=== PATIENT | female | born 1965 | race Caucasian/White ===

== ENCOUNTER → 2016-10-19 | Outpatient (CLI) | payer MEDICAID ==
[2016-10-19 13:37] LABS: BILIRUBIN,URINE NEGATIVE (NEGATIVE); KETONES,URINE NEGATIVE (NEGATIVE); LEUKOCYTE ESTERASE ,URINE 2+ (NEGATIVE); NITRITE,URINE NEGATIVE (NEGATIVE); PH,URINE 6.5 (5-9); PROTEIN,URINE 4+ (NEGATIVE); UROBILINOGEN,URINE NORMAL (NORMAL)
== END ==
LOC: HH 13:29
PROVIDERS: ATTEND Nurse Practitioner Family
DX: N39.0 Urinary tract infection, site not specified (principal)
CPT/HCPCS: 81000; 87077; 87088; 87186

== ENCOUNTER 2017-02-07 07:00 | Outpatient (RCR) | payer MEDICAID ==
[2017-02-07 15:38] LABS: BILIRUBIN,URINE NEGATIVE (NEGATIVE); CLARITY,URINE SLIGHTLY CLOUDY; COLOR,URINE YELLOW; GLUCOSE, URINE (UA) NEGATIVE (NEGATIVE); KETONES,URINE NEGATIVE (NEGATIVE); LEUKOCYTE ESTERASE ,URINE 1+ (NEGATIVE); NITRITE,URINE NEGATIVE (NEGATIVE); PH,URINE 7 (5-9); PROTEIN,URINE NEGATIVE (NEGATIVE); UROBILINOGEN,URINE NORMAL (NORMAL)
[2017-02-07 15:59] LABS: BACTERIA,URINE LARGE /HPF; SQUAMOUS EPITHELIAL CELL,UR 0-2 /HPF; WBC,URINE 25-50 /HPF
[2017-03-01] MEDS ORDERED: CETI10TA17 PO (10:52)
[2017-03-01] MEDS ORDERED: NALO25TA PO (10:52)
[2017-03-01] MEDS ORDERED: RIVA20TA PO (10:52)
[2017-03-01] MEDS ORDERED: INSU100V6 SQ (10:52)
[2017-03-01] MEDS ORDERED: FOLI1TAB24 PO (10:52)
[2017-03-01] MEDS ORDERED: GENT30OI2 TP (10:52)
[2017-03-01] MEDS ORDERED: NORT25CA PO (10:52)
[2017-03-01] MEDS ORDERED: GABA-488 PO (10:52)
[2017-03-01] MEDS ORDERED: PANT40TA3 PO (10:52)
[2017-03-01] MEDS ORDERED: TRAZ-28 PO (10:52)
[2017-03-01] MEDS ORDERED: POTA10TA36 PO (10:52)
[2017-03-01] MEDS ORDERED: DARI15TA PO (10:52)
[2017-03-01] MEDS ORDERED: FURO40TA4 PO (10:52)
[2017-03-01] MEDS ORDERED: TRIM100T PO (10:52)
[2017-03-01] MEDS ORDERED: BACL10TA PO (10:52)
[2017-03-01] MEDS ORDERED: LIDO6JEL TOP ×2 (11:05)
[2017-03-01] MEDS ORDERED: ONDA8TAB6 PO (11:05)
[2017-03-01] MEDS ORDERED: FERR325T24 PO (11:27)
[2017-03-01] MEDS ORDERED: CRAN500C5 PO (11:27)
[2017-03-01] MEDS ORDERED: HYDR-3820 PO (11:27)
[2017-03-01] MEDS ORDERED: MENT71OI TP (11:27)
[2017-03-01] MEDS ORDERED: TRAM50TA2 PO (11:27)
[2017-03-01] MEDS ORDERED: ALPR0.5T7 PO (11:27)
[2017-03-01] MEDS ORDERED: SENN-1 PO (11:27)
[2017-03-01] MEDS ORDERED: BIOT25007 PO (11:27)
[2017-03-01] MEDS ORDERED: MULT-166 PO (11:27)
[2017-03-01] MEDS ORDERED: CHOL20002 PO (11:27)
[2017-03-01] MEDS ORDERED: POLY17PO6 PO (11:27)
[2017-03-08] MEDS ORDERED: CARV3.122 PO (09:17)
[2017-03-08] MEDS ORDERED: TRAM50TA2 PO (09:33)
[2017-03-08] MEDS ORDERED: HYDR-3820 PO (09:33)
[2017-03-08] MEDS ORDERED: ALPR0.5T7 PO (09:33)
== END 2017-05-08 | disposition home or self-care (01) ==
LOC: LAB 07:00
PROVIDERS: ATTEND Family Medicine
DX: N39.0 Urinary tract infection, site not specified (principal)
CPT/HCPCS: 81000; 87077; 87088; 87186

== ENCOUNTER 2017-02-28 17:59 | Inpatient (IN) | payer MEDICAID ==
[~2017-02-28] VITALS: Ht 157.5 cm; Wt 100.9 kg
[2017-02-28] VITALS (10 sets, daily range): BP systolic 90–109; BP diastolic 57–69
--- OUTSIDE RECORDS SUMMARY | 2017-02-28 18:04 | XMS REPORT ---
Author Hector Aldridge [facility] Address [address] [place], [place] [id number] Care Team Providers Care Hospice Care Consultant Name Role Phone Hector Cano PCP Unavailable Allergies and Adverse Reactions Name Reaction Notes No known drug allergy Plan of Treatment Not available. Medications Active Name Start Date Estimated Completion Date SIG Comments Dextromethorphan 600 mg oral 1 tablet twice daily tramadol 50 mg oral tablet take 1 tablet (50 mg) by oral route every 6 hours as needed Xanax 0.5 mg oral tablet take 0.5 tablet by oral route every 4 to 6 hours as needed gabapentin 300 mg oral capsule take 1 capsule (300 mg) by oral route 3 times per day Zofran ODT 8 mg oral tablet,disintegrating take 1 tablet (8 mg) and place on top of the tongue where it will dissolve, then swallow by oral route 2 times per day Zyrtec 10 mg oral tablet take 1 tablet (10 mg) by oral route once daily Xarelto 20 mg oral tablet take 1 tablet (20 mg) by oral route once daily with the evening meal folic acid 1 mg oral tablet take 1 tablet (1 mg) by oral route once daily Cranberry Concentrate 500 mg oral capsule take 1 capsule by oral route daily Lantus 100 unit/mL subcutaneous solution inject by subcutaneous route as per insulin protocol ferrous sulfate 325 mg (65 mg iron) oral tablet take 1 tablet (325 mg) by oral route 2 times per day Miralax 17 gram/dose oral powder take 17 gram mixed with 8 oz. water, juice, soda, coffee or tea by oral route once daily Senna-S 8.6-50 mg oral tablet take 2 tablets by oral route 2 times a day Lasix 20 mg oral tablet take 2 tablets (40 mg) by oral route 2 times per day multivitamin oral tablet take 1 tablet by oral route daily hydrocodone-acetaminophen 10-325 mg oral tablet take 1 tablet by oral route every 6 to 8 hours as needed potassium chloride 20 mEq oral tablet extended release take 1 tablet ( 20 meq) by oral route once daily with food Protonix 40 mg oral tablet,delayed release (DR/EC) take 1 tablet (40 mg ) by oral route once daily trazodone 50 mg oral tablet take 1 tablet (50 mg) by oral route once daily at bedtime baclofen 10 mg oral tablet take 1 tablet (10 mg) by oral route 3 times per day Pamelor 25 mg oral capsule take 2 capsules (50 mg) by oral route once daily at bedtime Enablex 15 mg oral tablet extended release 24 hr take 1 tablet (15 mg) by oral route once daily biotin 5,000 mcg oral tablet,disintegrating dissolve 1 tablet by oral route daily Problem List Description Status Onset Multiple Sclerosis Active Chronic fatigue Active Sarcopenia Active Lymphedema Active Chronic constipation Active Depression Active IDDM (insulin dependent diabetes mellitus) Active Vital Signs Date Time BP-Sys(mm[Hg] BP-Sophie(mm[Hg]) HR(bpm) RR(rpm) Temp WT HT HC BMI BSA BMI Percentile O2 Sat(%) 01/19/2017 10:00:00 AM 104 mmHg 80 mmHg 111 bpm 16 rpm 96.5 F 178 lbs 64 in 30.55 kg/m2 1.91 m2 98 % Social History Not available. History of Procedures Not available. Results Summary Not available. History Of Immunizations Not available. History of Past Illness Name Date of Onset Comments Multiple Sclerosis Chronic fatigue Sarcopenia Lymphedema Chronic constipation Depression IDDM (insulin dependent diabetes mellitus) Pulmonary embolism DVT MRSA (methicillin resistant staph aureus) culture positive Pressure ulcer of right ankle, unstageable Jan 20 2017 3:20PM Payers Insurance Name Company Name Plan Name Plan Number Policy Number Policy Group Number Start Date [facility] [id number] N/A History of Encounters Visit Date Visit Type Provider 01/19/2017 Office visit Hector Cano MD
--- OUTSIDE RECORDS SUMMARY | 2017-02-28 18:04 | XMS REPORT | Continuity of Care Document ---
Author Author [facility] Address Unknown Phone Unavailable Allergies Medications Problems Date Dx Coded Attending Type Code Diagnosis Diagnosed By 07/03/2014 SY PADRON DO 682.9 CELLULITIS AND ABSCESS OF UNSPECIFIED SITES 07/03/2014 SY PADRON DO 692.9 CONTACT DERMATITIS AND OTHER ECZEMA UNSPECIFIED CAUSE Procedures Results Encounters ACCT No. Visit Date/Time Discharge Status Pt. Type Provider Facility Loc./Unit Complaint [id number] 07/03/2014 11:03:00 07/03/2014 23: 59:59 [facility] Outpatient SY PADRON DO [id number] 01/24/2017 17:11:53 01/24/2017 23: 59:59 [facility] Outpatient Hector Cano [id number] 01/20/2017 16:07:27 01/20/2017 23: 59:59 [facility] Outpatient Hector Cano
--- NOTE | 2017-02-28 18:16 | ED General ---
General Stated Complaint: LETHARGIC/AMS Source of Information: Patient, EMS, Old Records Exam Limitations: Physical Impairments History of Present Illness Time Seen by Provider: 18:00 Initial Comments Patient presents by EMS to the [facility] ER from [facility]. Staff there noticed this morning some time that she started acting lethargic and out of it. She has an indwelling Logan catheter and they also thought they smelled malodorous urine and suspect that she may have a UTI. EMS reports when they picked her up that her blood pressures in the 90s and they are not able to get an IV. They report that the patient told EMS that she typically has to have a PICC line or central line placed. Patient denies any pain or shortness of breath. She has a history of MS. There is a note from the [facility] to contact the [facility] nursing facility about placement after medical workup and any necessary admission. Patient does not give much meaningful history but she says she is diabetic and is on Lantus 15 units at night. She's also on Lasix and Xarelto. EMS reports she was transferred by mechanical lift. Records mention heal wounds that are being treated as well as chronic lymphedema history of drug abuse nonspecific, anticoagulant usage with a history of warfarin-induced coagulopathy and pulmonary embolism without acute cor pulmonale. She has no indwelling Logan catheter with a history of candiduria June 2015 echocardiogram showed an ejection fraction of 15-20%. Allergies and Home Medications Allergies Coded Allergies: No Known Drug Allergies (Unverified , 02/28/17) Constitutional: see HPI, No chills, No fever Respiratory: No cough, No short of breath Cardiovascular: No chest pain, No palpitations Gastrointestinal: No abdominal pain, No nausea, No vomiting Genitourinary: other (Logan catheter in place) Musculoskeletal: No back pain, No joint pain Skin: other (ulcers to both heels and buttocks) Psychiatric/Neurological: Denies Headache, Pre-Existing Deficit, Weakness Past Mkhhluf-Akhpwo-Jqcygl Hx Patient Social History Alcohol Use: Occasionally Uses Alcohol Beverage of Choice: Beer, Wine Recreational Drug Use: No Physical Exam-Suspected Sepsis Physical Exam Vital Signs Vital Sign - Last 12Hours 02/28/17 19:02 Temp 98.1 Pulse 130 Resp 18 B/P (MAP) 107/89 Pulse Ox 96 Capillary Refill : General Appearance: Mild Distress, Obese Eyes: Bilateral Eye Normal Inspection, Bilateral Eye PERRL, Bilateral Eye EOMI HEENT: PERRL/EOMI, TMs Normal, Normal ENT Inspection, Other (oral mucosa is dry dentition is very poor.) Neck: Full Range of Motion, Non Tender, Supple Respiratory: Chest Non Tender, Lungs Clear, Normal Breath Sounds Cardiovascular: Regular Rate, Rhythm, JVD (mild) Gastrointestinal: Normal Bowel Sounds, Non Tender, Soft Genital/Rectal: Other (Logan catheter in place) Back: Normal Inspection, No Vertebral Tenderness Extremity: Pedal Edema (chronic lymphedema bilateral legs with wrappings around ankles. Nonerythematous.) Neurologic/Psychiatric: Alert, Other (oriented to person and place) Skin: other (erythema on right hip and deep tunneling unstageable pressure ulcer over the sacrum. There are heel pressure ulcers and Isaias under both breasts mostly the left.) Focused Exam Evaluation Sepsis Stage: Septic Shock Possible Source: Genitouriary Lactate Level Laboratory Tests 02/28/17 18:33: Lactic Acid Level 2.63*H Time of Focused Exam: 20:21 Respiratory: Chest Non Tender, Lungs Clear, Normal Breath Sounds, No Accessory Muscle Use, No Respiratory Distress Cardiovascular: Regular Rate, Rhythm, Normal Peripheral Pulses, JVD, Other ( chronic lymphedema) Capillary Refill: Less Than 3 Seconds Peripheral Pulses: 1+ Dorsalis Pedis (R), 1+ Left Dors-Pedis (L), 2+ Radial Pulses (R), 2+ Radial Pulses (L) Skin: normal color, warm/dry, ulcerations (pressure ulcer on the sacrum, left heel and candidiasis under her bilateral breasts left more than right.), other ( erythema and edema to right hip and buttock) Lactic Acid Level Laboratory Tests Test 02/28/17 18:33 Lactic Acid Level 2.63 MMOL/L (0.50-2.00) *H Progress/Results/Core Measures Suspected Sepsis SIRS Temperature: Pulse: Respiratory Rate: Laboratory Tests 02/28/17 18:33: White Blood Count 22.5H Blood Pressure / Mean: Laboratory Tests 02/28/17 18:33: Lactic Acid Level 2.63*H Laboratory Tests 02/28/17 18:33: Creatinine 0.72, INR Comment 2.9H, Platelet Count 359, Total Bilirubin 0.8 Results/Orders Lab Results Laboratory Tests Test 02/28/17 18:33 02/28/17 18:46 Range/Units White Blood Count 22.5 H 4.3-11.0 10^3/uL Red Blood Count 3.72 L 4.35-5.85 10^6/uL Hemoglobin 9.9 L 11.5-16.0 G/DL Hematocrit 32 L 35-52 % Mean Corpuscular Volume 85 80-99 FL Mean Corpuscular Hemoglobin 27 25-34 PG Mean Corpuscular Hemoglobin Concent 31 L 32-36 G/DL Red Cell Distribution Width 14.4 10.0-14.5 % Platelet Count 359 130-400 10^3/uL Mean Platelet Volume 11.2 H 7.4-10.4 FL Neutrophils (%) (Auto) 91 H 42-75 % Lymphocytes (%) (Auto) 5 L 12-44 % Monocytes (%) (Auto) 3 0-12 % Eosinophils (%) (Auto) 0 0-10 % Basophils (%) (Auto) 0 0-10 % Neutrophils # (Auto) 20.5 H 1.8-7.8 X 10^3 Lymphocytes # (Auto) 1.2 1.0-4.0 X 10^3 Monocytes # (Auto) 0.8 0.0-1.0 X 10^3 Eosinophils # (Auto) 0.0 0.0-0.3 10^3/uL Basophils # (Auto) 0.0 0.0-0.1 10^3/uL Neutrophils % (Manual) 86 % Lymphocytes % (Manual) 6 % Monocytes % (Manual) 1 % Eosinophils % (Manual) 0 % Basophils % (Manual) 0 % Band Neutrophils 7 % Blood Morphology Comment NORMAL Prothrombin Time 30.2 H 12.2-14.7 SEC INR Comment 2.9 H 0.8-1.4 Activated Partial Thromboplast Time 58 H 24-35 SEC Sodium Level 133 L 135-145 MMOL/L Potassium Level 4.1 3.6-5.0 MMOL/L Chloride Level 92 L 98-107 MMOL/L Carbon Dioxide Level 28 21-32 MMOL/L Anion Gap 13 5-14 MMOL/L Blood Urea Nitrogen 19 H 7-18 MG/DL Creatinine 0.72 0.60-1.30 MG/DL Estimat Glomerular Filtration Rate > 60 BUN/Creatinine Ratio 26 Glucose Level 206 H 70-105 MG/DL Lactic Acid Level 2.63 *H 0.50-2.00 MMOL/L Calcium Level 9.1 8.5-10.1 MG/DL Total Bilirubin 0.8 0.1-1.0 MG/DL Aspartate Amino Transf (AST/SGOT) 11 5-34 U/L Alanine Aminotransferase (ALT/SGPT) 9 0-55 U/L Alkaline Phosphatase 118 40-136 U/L B-Type Natriuretic Peptide 737.1 H <100.0 PG/ML Total Protein 7.8 6.4-8.2 GM/DL Albumin 3.4 3.2-4.5 GM/DL Salicylates Level < 5.0 L 5.0-20.0 MG/DL Acetaminophen Level < 10 L 10-30 UG/ML Serum Alcohol < 10 <10 MG/DL Urine Color YELLOW Urine Clarity VERY CLOUDY H Urine pH 8 5-9 Urine Specific Hutchins 1.015 L 1.016-1.022 Urine Protein 2+ H NEGATIVE Urine Glucose (UA) NEGATIVE NEGATIVE Urine Ketones NEGATIVE NEGATIVE Urine Nitrite NEGATIVE NEGATIVE Urine Bilirubin 1+ H NEGATIVE Urine Urobilinogen 1 NORMAL MG/DL Urine Leukocyte Esterase 3+ H NEGATIVE Urine RBC (Auto) 4+ H NEGATIVE Urine RBC 2-5 H /HPF Urine WBC 10-25 H /HPF Urine Crystals NONE /LPF Urine Bacteria LARGE H /HPF Urine Casts NONE /LPF Urine Mucus NEGATIVE /LPF Urine Culture Indicated YES Urine Opiates Screen POSITIVE H NEGATIVE Urine Oxycodone Screen NEGATIVE NEGATIVE Urine Methadone Screen NEGATIVE NEGATIVE Urine Propoxyphene Screen NEGATIVE NEGATIVE Urine Barbiturates Screen NEGATIVE NEGATIVE Ur Tricyclic Antidepressants Screen POSITIVE H NEGATIVE Urine Phencyclidine Screen NEGATIVE NEGATIVE Urine Amphetamines Screen NEGATIVE NEGATIVE Urine Methamphetamines Screen NEGATIVE NEGATIVE Urine Benzodiazepines Screen POSITIVE H NEGATIVE Urine Cocaine Screen NEGATIVE NEGATIVE Urine Cannabinoids Screen NEGATIVE NEGATIVE My Orders Orders - KAMI TINEO Cbc With Automated Diff (02/28/17 18:20) Comprehensive Metabolic Panel (02/28/17 18:20) Lactic Acid Analyzer (02/28/17 18:20) Blood Culture (02/28/17 18:20) Sputum Culture (02/28/17 18:20) Ua Culture If Indicated (02/28/17 18:20) Protime With Inr (02/28/17 18:20) Partial Thromboplastin Time (02/28/17 18:20) Chest 1 View, Ap/Pa Only (02/28/17 18:20) O2 (02/28/17 18:20) Saline Lock/Iv-Start (02/28/17 18:20) Saline Lock/Iv-Start (02/28/17 18:20) Piperacillin Sodium/Tazobactam (Zosyn Vi (02/28/17 18:30) Vital Signs Adult Sepsis Patie Q1H (02/28/17 18:20) Remove Rings In Anticipation O (02/28/17 18:20) BNP (02/28/17 18:20) Drug Screen Stat (Urine) (02/28/17 18:20) Ns Iv 1000 Ml (Sodium Chloride 0.9%) (02/28/17 18:20) Lactated Ringers (Lr 1000 Ml Iv Solution (02/28/17 18:20) Lactated Ringers (Lr 1000 Ml Iv Solution (02/28/17 18:49) Manual Differential (02/28/17 18:33) Vancomycin Injection (Vancomycin Injecti (02/28/17 19:00) Urine Culture (02/28/17 18:46) Salicylate (02/28/17 19:20) Acetaminophen (02/28/17 19:20) Alcohol (02/28/17 19:20) Medications Given in ED Current Medications Medications Dose Ordered Sig/Humberto Route Start Time Stop Time Status Last Admin Dose Admin Lactated Ringer's 1,000 ml @ 0 mls/hr Q0M ONCE IV 02/28/17 18:20 02/28/17 18:21 DC 02/28/17 19:00 0 MLS/HR Piperacillin Sod/ Tazobactam Sod 4.5 gm/Sodium Chloride 100 ml @ 200 mls/hr ONCE ONCE IV 02/28/17 18:30 02/28/17 18:59 DC 02/28/17 18:59 200 MLS/HR Sodium Chloride 1,000 ml @ 0 mls/hr Q0M ONCE IV 02/28/17 18:20 02/28/17 18:21 DC 02/28/17 19:00 0 MLS/HR Vancomycin HCl 1000 mg/Sodium Chloride 250 ml @ 250 mls/hr ONCE ONCE IV 02/28/17 19:00 02/28/17 19:59 DC 02/28/17 19:59 250 MLS/HR Vital Signs/I&O Vital Sign - Last 12Hours 02/28/17 19:02 Temp 98.1 Pulse 130 Resp 18 B/P (MAP) 107/89 Pulse Ox 96 Capillary Refill : Progress Note #1: Time: 18:18 Progress Note Initial blood pressure 79 systolic so we'll work her up for sepsis get some fluids and try an IV access probably using an external jugular. Patient has possible sources of urine and her redness of her skin may indicate cellulitis or wound infection from pressure ulcer. Guessing her weight to be about 2:30 pounds. I'll put her at about 3 L of fluids to get started. She is already responded with a blood pressure above 100 just to reclining her and getting in some IV fluids. Progress Note #2: Time: 19:16 Progress Note Hemoglobin is 9.9 however in her records does indicate she has a history of iron deficiency anemia and she is on multivitamins. She does stop leukocytosis with lots of leukocytes in her urine and bacteria. We'll still use a broad- spectrum coverage concern for possible cellulitis versus wound infection on her sacrum as well as UTI. Progress Note #3: Time: 19:58 Progress Note Discussed the patient's case and care at length with the son Izaiah and daughter Liliane at the bedside. They are aware of her decline and spoke with her in the past and she said that if it looked futile that we should allow natural . There is no formalized DO NOT RESUSCITATE from the patient however he discussed the futility of trying to resuscitate the patient should her heart stop beating on its own. At this time however the patient's blood pressure has improved his systolic blood pressure being 114 and she has looking a little more bright and alert so we will continue our current management and transition her to the ICU. Plan is eventually to go to the [facility]. Family would also like to try and wean off a lot of the medications the patient is on because they feel that there is excessive and superfluous. Diagnostic Imaging Diagonstic Imaging: Xray Plain Films/CT/US/NM/MRI: chest Comments NAME: RIOS GARCIA [facility] REC#: [id number] PHYSICIAN: KAMI TINEO MD CC: QUEENIE SIEGEL MD; KAMI TINEO Page 1 of 1 RADIOLOGY REPORT VIA [facility]. [place], [place] CC: QUEENIE SIEGEL MD; KAMI TINEO Page 1 of 1 RADIOLOGY REPORT NAME: RIOS GARCIA [facility] REC#: [id number] PT STATUS: REG ER : 1965 PHYSICIAN: KAMI TINEO MD ADMIT DATE: 02/28/17/ER Signed Date of Exam: 02/28/17 CHEST 1 VIEW, AP/PA ONLY INDICATION: Lethargy and cough. No prior examinations are available for comparison. FINDINGS: There is cardiomegaly. There is some venous congestion. There is no pleural effusion or pneumothorax. Mediastinum is unremarkable. IMPRESSION: Cardiomegaly and mild central pulmonary venous congestion. Dictated by: Dictated on workstation # [id number] Dict: 02/28/171902 Trans: 02/28/171916 Interpreted by: QUEENIE SIEGEL MD Electronically signed by: QUEENIE SIEGEL MD 02/28/171916 Reviewed: Reviewed by Me Departure Communication (Admissions) Time/Spoke to Admitting Phy: 19:29 Communication Discussed case imaging lab findings and choice of antibiotics and fluids. He is okay with all that and will see the patient. He would like eICU consultation on arrival. We discussed the futility of resuscitative efforts should her heart stop and the patient would not be helped by any kind of CPR efforts. We discussed at length the futility of such measures and decided the patient would most likely benefit from being DO NOT RESUSCITATE and have no benefit from being coded. Time/Spoke to Consulting Phy: 19:34 Communication/Consulting Kido: Discussed case imaging findings and sacral ulcer for consultation. Impression Impression: Primary Impression: Septic shock Additional Impressions: UTI (urinary tract infection) Qualified Codes: N30.00 - Acute cystitis without hematuria Ulcer of sacral region, unstageable Cellulitis of hip, right Candidiasis of breast Disposition: ADMITTED INPATIENT Condition: Stable Admissions Decision to Admit Reason: Admit from ER (General) Decision to Admit/Date: Feb 28, 2017 Time/Decision to Admit Time: 19:37 Departure-Patient Inst. Referrals: SABINE STEVENS MD (PCP/Family) Primary Care Physician Copy Copies To 1: TIFFANIE SMALL MD, TITUS J Feb 28, 2017 18:16
[2017-02-28] MEDS ORDERED: LACTATED RINGERS 1,000 ML IV ONE ×2 (18:20→18:49)
[2017-02-28] MEDS ORDERED: NS IV 1000 ML 1,000 ML IV ONE (18:20)
[2017-02-28] MEDS ORDERED: PIPERACILLIN SODIUM/TAZOBACTAM 4.5 GM in NS (IVPB) 100 ML IV ONE (18:30)
[2017-02-28 18:45] LABS: BASOPHILS % (AUTO) 0 % (0-10); EOSINOPHILS % (AUTO) 0 % (0-10); LYMPHOCYTES # (AUTO) 1.2 X 10^3 (1.0-4.0); LYMPHOCYTES % (AUTO) 5 % (12-44); MEAN CORPUSCULAR HEMOGLOBIN 27 PG (25-34); MEAN CORPUSCULAR HGB CONC 31 G/DL (32-36); MEAN CORPUSCULAR VOLUME 85 FL (80-99); MEAN PLATELET VOLUME 11.2 FL (7.4-10.4); MONOCYTES # (AUTO) 0.8 X 10^3 (0.0-1.0); MONOCYTES % (AUTO) 3 % (0-12); NEUTROPHILS # (AUTO) 20.5 X 10^3 (1.8-7.8); NEUTROPHILS % (AUTO) 91 % (42-75); PLATELET COUNT 359 10^3/uL (130-400); RED BLOOD COUNT 3.72 10^6/uL (4.35-5.85); RED CELL DISTRIBUTION WIDTH 14.4 % (10.0-14.5); WHITE BLOOD COUNT 22.5 10^3/uL (4.3-11.0)
[2017-02-28 18:53] LABS: INR 2.9 (0.8-1.4); PROTHROMBIN TIME PATIENT 30.2 SEC (12.2-14.7)
[2017-02-28 18:54] LABS: KETONES,URINE NEGATIVE (NEGATIVE); LEUKOCYTE ESTERASE ,URINE 3+ (NEGATIVE); NITRITE,URINE NEGATIVE (NEGATIVE); PH,URINE 8 (5-9); PROTEIN,URINE 2+ (NEGATIVE); UROBILINOGEN,URINE 1 MG/DL (NORMAL)
[2017-02-28] MEDS ORDERED: VANCOMYCIN INJECTION 1,000 MG in NS (IVPB) 250 ML IV ONE (19:00)
[2017-02-28 19:03] LABS: ALANINE AMINOTRANSFERASE 9 U/L (0-55); ALBUMIN 3.4 GM/DL (3.2-4.5); ANION GAP 13 MMOL/L (5-14); ASPARTATE AMINO TRANSFERASE 11 U/L (5-34); BILIRUBIN,TOTAL 0.8 MG/DL (0.1-1.0); BLOOD UREA NITROGEN 19 MG/DL (7-18); BUN/CREATININE RATIO 26; CALCIUM 9.1 MG/DL (8.5-10.1); CARBON DIOXIDE 28 MMOL/L (21-32); CHLORIDE 92 MMOL/L (98-107); CREATININE SERUM 0.72 MG/DL (0.60-1.30); GFR ESTIMATED > 60; GLUCOSE 206 MG/DL (70-105); POTASSIUM 4.1 MMOL/L (3.6-5.0); SODIUM 133 MMOL/L (135-145); TOTAL PROTEIN 7.8 GM/DL (6.4-8.2)
[2017-02-28 19:08] LABS: BILIRUBIN,URINE 1+ (NEGATIVE)
[2017-02-28 19:15] LABS: BAND NEUTROPHILS 7 %; BASOPHILS % (MANUAL) 0 %; EOSINOPHILS % (MANUAL) 0 %; LYMPHOCYTES % (MANUAL) 6 %; NEUTROPHILS % (MANUAL) 86 %
--- NOTE | 2017-02-28 19:16 | Diagnostic Imaging Report ---
INDICATION: Lethargy and cough. No prior examinations are available for comparison. FINDINGS: There is cardiomegaly. There is some venous congestion. There is no pleural effusion or pneumothorax. Mediastinum is unremarkable. IMPRESSION: Cardiomegaly and mild central pulmonary venous congestion. Dictated by: Dictated on workstation # [id number]
[2017-02-28 19:40] LABS: ALCOHOL < 10 MG/DL (<10); SALICYLATE < 5.0 MG/DL (5.0-20.0)
[2017-02-28 19:42] LABS: ACETAMINOPHEN < 10 UG/ML (10-30)
--- OUTSIDE RECORDS SUMMARY | 2017-02-28 20:29 | XMS REPORT | Continuity of Care Document ---
Author Author [facility] Address Unknown Phone Unavailable Allergies Medications Problems Date Dx Coded Attending Type Code Diagnosis Diagnosed By 07/03/2014 SY PADRON DO 682.9 CELLULITIS AND ABSCESS OF UNSPECIFIED SITES 07/03/2014 SY PADRON DO 692.9 CONTACT DERMATITIS AND OTHER ECZEMA UNSPECIFIED CAUSE Procedures Results Encounters ACCT No. Visit Date/Time Discharge Status Pt. Type Provider Facility Loc./Unit Complaint [id number] 07/03/2014 11:03:00 07/03/2014 23: 59:59 [facility] Outpatient SY PADRON DO [id number] 01/24/2017 17:11:53 01/24/2017 23: 59:59 [facility] Outpatient Hector Cano [id number] 01/20/2017 16:07:27 01/20/2017 23: 59:59 [facility] Outpatient Hector Cano
[2017-02-28] MEDS ORDERED: IBUPROFEN 800 MG (MOTRIN) TAB PO PRN (21:30)
[2017-02-28] MEDS ORDERED: CATHETER FLUSH 10 ML SYR IV PRN (21:30)
[2017-02-28] MEDS ORDERED: ONDANSETRON 4 MG/2 ML (SDV) Z0FRAN IV PRN (21:30)
[2017-02-28] MEDS ORDERED: NOREPINEPHRINE 4 MG in D5W IV SOLUTION (EXCEL) 250 ML IV SCH (21:30)
[2017-02-28] MEDS ORDERED: LORazepam INJ 2 MG/ML (ATIVAN) VIAL IV PRN (21:30)
[2017-02-28] MEDS ORDERED: VASOPRESSIN INJECTION 20 UNIT in NS (IVPB) 50 ML IV SCH (21:30)
[2017-02-28] MEDS ORDERED: ACETAMINOPHEN 500 MG TAB (TYLENOL) PO PRN (21:30)
[2017-02-28] MEDS: NS IV 1000 ML 1,000 ML IV SCH (21:48)
[2017-02-28] MEDS: CATHETER FLUSH 10 ML SYR IV SCH (21:48)
[2017-03-01] VITALS (26 sets, daily range): BP systolic 89–107; BP diastolic 57–71
[2017-03-01] MEDS ORDERED: PIPERACILLIN/TAZOBACTAM 4.5 GM/NS100 ML IVPB IV SCH ×2 (00:30)
[2017-03-01] MEDS: NS IV 1000 ML 1,000 ML IV SCH ×4 (04:19→23:48)
[2017-03-01 04:58] LABS: BASOPHILS % (AUTO) 0 % (0-10); EOSINOPHILS % (AUTO) 0 % (0-10); LYMPHOCYTES # (AUTO) 1.2 X 10^3 (1.0-4.0); LYMPHOCYTES % (AUTO) 6 % (12-44); MEAN CORPUSCULAR HEMOGLOBIN 27 PG (25-34); MEAN CORPUSCULAR HGB CONC 32 G/DL (32-36); MEAN CORPUSCULAR VOLUME 84 FL (80-99); MONOCYTES # (AUTO) 0.4 X 10^3 (0.0-1.0); MONOCYTES % (AUTO) 2 % (0-12); NEUTROPHILS # (AUTO) 19.4 X 10^3 (1.8-7.8); NEUTROPHILS % (AUTO) 92 % (42-75); PLATELET COUNT 287 10^3/uL (130-400); RED CELL DISTRIBUTION WIDTH 14.2 % (10.0-14.5); WHITE BLOOD COUNT 21.1 10^3/uL (4.3-11.0)
[2017-03-01 05:18] LABS: ALANINE AMINOTRANSFERASE 8 U/L (0-55); ALBUMIN 2.7 GM/DL (3.2-4.5); ANION GAP 11 MMOL/L (5-14); ASPARTATE AMINO TRANSFERASE 8 U/L (5-34); BILIRUBIN,TOTAL 0.8 MG/DL (0.1-1.0); BLOOD UREA NITROGEN 14 MG/DL (7-18); BUN/CREATININE RATIO 24; CALCIUM 7.9 MG/DL (8.5-10.1); CARBON DIOXIDE 26 MMOL/L (21-32); CHLORIDE 98 MMOL/L (98-107); CREATININE SERUM 0.59 MG/DL (0.60-1.30); GFR ESTIMATED > 60; GLUCOSE 197 MG/DL (70-105); MAGNESIUM 1.3 MG/DL (1.8-2.4); PHOSPHORUS 2.3 MG/DL (2.3-4.7); SODIUM 135 MMOL/L (135-145)
[2017-03-01] MEDS: KCL 20 MEQ TAB (K-DUR) PO SCH (06:00)
[2017-03-01] MEDS: POTASSIUM CL 10MEQ/50ML IVPB 50 ML IV SCH ×6 (06:00→13:15)
[2017-03-01] MEDS: MAGNESIUM 1 GM/100 ML IVPB 100 ML IV SCH ×5 (06:00→13:24)
[2017-03-01] MEDS: CATHETER FLUSH 10 ML SYR IV SCH ×3 (06:46→21:38)
[2017-03-01] MEDS: inSUlin (REGULAR) HUMAN 1 UNIT/0.01 ML (CHARGE PER UNIT) SC SCH ×4 (06:50→21:22)
[2017-03-01] MEDS ORDERED: PANTOPRAZOLE 40 MG (PROTONIX) TAB PO SCH (07:00)
[2017-03-01] MEDS ORDERED: VANCOMYCIN 1 GM/NS 250 ML IVPB IV SCH ×2 (07:00)
--- NOTE | 2017-03-01 07:25 | Pulmonary Consultation ---
History of Present Illness History of Present Illness Date of Consultation 03/01/17 07:19 Time Seen by Provider: 07:20 Date of Admission History of Present Illness 51yo with hx of bed bound secondary to MS, PE, and EF of 15-20% pt presented to ED via EMS from [facility] ([facility]) in [place] secondary to lethargy and suspected UTI. SBP was 90's. PT denies SOB. PT was admitted to ICU with severe sepsis protocol. Pt is not requiring oxygen. I am consulted for ICU management. Allergies and Home Medications Allergies Coded Allergies: No Known Drug Allergies (Unverified , 02/28/17) Home Medications Alprazolam 0.5 Mg Tablet, 0.25-1 MG PO QID PRN for ANXIETY, #30 TAKES 1/2 TO 2 (0.5MG) TABLETS Prescribed by: NEGRA WINCHESTER on 03/08/17932 Baclofen 10 Mg Tablet, 10 MG PO TID, (Reported) Biotin 2,500 Mcg Capsule, 5,000 MCG PO DAILY, (Reported) Carvedilol 3.125 Mg Tablet, 3.125 MG PO BID, #60 Prescribed by: NEGRA WINCHESTER on 03/08/17 0917 Cetirizine HCl 10 Mg Tablet, 10 MG PO DAILY, (Reported) Cholecalciferol (Vitamin D3) 2,000 Unit Capsule, 2,000 UNIT PO DAILY, (Reported) Cranberry Extract 500 Mg Capsule, 500 MG PO DAILY, (Reported) Darifenacin Hydrobromide 15 Mg Tab.er.24h, 15 MG PO DAILY, (Reported) Ferrous Sulfate 325 Mg Tablet, 325 MG PO BID, (Reported) Folic Acid 1 Mg Tablet, 1 MG PO DAILY, (Reported) Gabapentin 300 Mg Capsule, 300 MG PO TID, (Reported) Gentamicin Sulfate 30 Gm Oint...g., TP DAILY, (Reported) Hydrocodone/Acetaminophen 1 Each Tablet, 1 TAB PO TID PRN for PAIN-MODERATE, #30 Prescribed by: NEGRA WINCHESTER on 03/08/17932 Insulin Glargine,Hum.rec.anlog 100 Unit/1 Ml Vial, 15 UNIT SQ HS, (Reported) Lidocaine HCl 6 Ml Jel.pf.simone, TOP HS, (Reported) Menthol/Lanolin/Calamine/Znox 71 Gm Oint, TP QID, (Reported) Multivitamin with Minerals 1 Each Tablet, 1 TAB PO DAILY, (Reported) Naloxegol Oxalate 25 Mg Tablet, 25 MG PO DAILY, (Reported) Nortriptyline HCl 25 Mg Capsule, 50 MG PO HS, (Reported) TAKES 2 (25MG) CAPSULES Ondansetron HCl 8 Mg Tablet, 8 MG PO QID PRN for NAUSEA/VOMITING-1ST LINE, ( Reported) Pantoprazole Sodium 40 Mg Tablet.dr, 40 MG PO DAILY, (Reported) Polyethylene Glycol 3350 17 Gm Powd.pack, 17 GM PO DAILY PRN for CONSTIPATION- 2ND LINE, (Reported) Potassium Chloride 10 Meq Tab.er.prt, 20 MEQ PO BID, (Reported) TAKES 2 (10MEQ) TABLETS Rivaroxaban 20 Mg Tablet, 20 MG PO DAILY, (Reported) Sennosides/Docusate Sodium 1 Each Tablet, 1 TAB PO BID, (Reported) Tramadol HCl 50 Mg Tablet, 50-100 MG PO QID PRN for PAIN-MODERATE, #30 Prescribed by: NEGRA WINCHESTER on 03/08/17 0933 Trazodone HCl 50 Mg Tablet, 50 MG PO HS, (Reported) Trimethoprim 100 Mg Tablet, 100 MG PO HS, (Reported) Past Ptxxstl-Mjxedz-Sgvbyj Hx Patient Social History Alcohol Use: Occasionally Uses Number of Drinks Today: HH Alcohol Beverage of Choice: Beer, Wine Recreational Drug Use: Yes (hx of recreational drug use listed) Smoking Status: Unknown if Ever Smoked Recent Foreign Travel: No Contact w/Someone Who Travel: No Recent Infectious Disease Expo: No Physical Abuse: No Sexual Abuse: No Mistreated: No Fear: No Respiratory History of Respiratory Disorde: Yes Respiratory Disorders: Pulmonary Embolism, COPD Cardiovascular History of Cardiac Disorders: Yes Cardiac Disorders: Deep Vein Thrombosis, Hypotension Neurological History of Neurological Disord: Yes Neurological Disorders: Multiple Sclerosis Genitourinary History of Genitourinary Disor: Yes Genitourinary Disorders: Renal Failure, UTI-Chronic Endocrine History of Endocrine Disorders: Yes Endocrine Disorders: Diabetes, Non-Insulin dep Psychosocial History of Psychiatric Problem: Yes Behavioral Health Disorders: Sleep Difficulties, Anxiety, Depression Suicide Risk Score: 0 Integumentary History of Skin or Integumenta: Yes (sacral wound/ulcer, rash under breasts) Review of Systems Time Seen by Provider: 08:20 Exam Exam Vital Signs Date Time Temp Pulse Resp B/P (MAP) Pulse Ox O2 Delivery O2 Flow Rate FiO2 03/01/17 06:00 122 18 94/62 96 Room Air 03/01/17 05:00 128 20 100/65 95 Room Air 03/01/17 04:00 99.8 126 12 91/61 96 Room Air 03/01/17 03:00 126 18 100/62 96 Room Air 03/01/17 02:00 126 18 98/65 96 Room Air 03/01/17 01:00 126 03/01/17 01:00 126 19 101/66 97 Room Air 03/01/17 00:00 98.5 125 19 101/68 97 Room Air 02/28/17 23:30 124 21 109/66 96 Room Air 02/28/17 23:00 126 21 100/69 96 Room Air 02/28/17 22:45 126 20 100/68 96 Room Air 02/28/17 22:30 125 18 90/61 96 Room Air 02/28/17 22:15 125 18 90/61 95 Room Air 02/28/17 22:00 128 20 92/63 95 Room Air 02/28/17 21:45 129 23 99/61 96 Room Air 02/28/17 21:30 130 8 99/68 96 Room Air 02/28/17 21:15 131 11 94/57 96 Room Air 02/28/17 21:11 99.2 132 16 99/69 97 Room Air 02/28/17 21:10 131 02/28/17 20:52 97 Room Air 02/28/17 20:47 98.1 133 18 96 02/28/17 19:30 98.1 132 18 117/78 97 02/28/17 19:02 98.1 130 18 107/89 96 General Appearance: Mild Distress, Obese HEENT: PERRL/EOMI, TMs Normal, Normal ENT Inspection, Other (oral mucosa is dry dentition is very poor.) Neck: Full Range of Motion, Non Tender, Supple Respiratory: Chest Non Tender, Lungs Clear, Normal Breath Sounds, No Accessory Muscle Use, No Respiratory Distress Cardiovascular: Regular Rate, Rhythm, Normal Peripheral Pulses, JVD, Other ( chronic lymphedema) Capillary Refill: Less Than 3 Seconds Peripheral Pulses: 1+ Dorsalis Pedis (R), 1+ Left Dors-Pedis (L), 2+ Radial Pulses (R), 2+ Radial Pulses (L) Extremity: Pedal Edema (chronic lymphedema bilateral legs with wrappings around ankles. Nonerythematous.) Neurologic/Psychiatric: Alert, Other (oriented to person and place) Results Lab Laboratory Tests 02/28/17 18:33 03/01/17 04:45 Assessment/Plan Assessment/Plan Severe sepsis -Continue vanco zosyn -pt did receive IVF protocol -Vazquez cultures pending Hypotension -Improved with IVF Metabolic lactic acidosis -IVF Multiple skin wounds -wound care consulted HX of PE and DVTs -continue TRENTON Patel DO Mar 01, 2017 07:24
[2017-03-01] MEDS ORDERED: NS IV PRN (07:45)
[2017-03-01] MEDS: MEROPENEM 500 MG/NS 100 ML IVPB IV SCH ×8 (08:10→23:48)
[2017-03-01] MEDS ORDERED: VANCOMYCIN 1 GM/NS 250 ML IVPB IV NR ×2 (08:30)
--- NOTE | 2017-03-01 08:53 | Diagnostic Imaging Report ---
EXAMINATION: Portable upright radiograph of the chest. INDICATION: Septic shock. COMPARISON: 02/28/2017. FINDINGS: There are decreased lung volumes with mild vascular congestion. There is cardiomegaly. The right hemidiaphragm is elevated with minimal basilar atelectasis. No pneumothorax. No significant effusion. IMPRESSION: Cardiomegaly with pulmonary vascular congestion, similar to the previous exam. Mild right basilar atelectasis. Dictated by: Dictated on workstation # [id number]
[2017-03-01] MEDS ORDERED: FURO40TA4 PO (10:52)
[2017-03-01] MEDS ORDERED: NALO25TA PO (10:52)
[2017-03-01] MEDS ORDERED: FOLI1TAB24 PO (10:52)
[2017-03-01] MEDS ORDERED: DARI15TA PO (10:52)
[2017-03-01] MEDS ORDERED: CETI10TA17 PO (10:52)
[2017-03-01] MEDS ORDERED: TRIM100T PO (10:52)
[2017-03-01] MEDS ORDERED: RIVA20TA PO (10:52)
[2017-03-01] MEDS ORDERED: BACL10TA PO (10:52)
[2017-03-01] MEDS ORDERED: GENT30OI2 TP (10:52)
[2017-03-01] MEDS ORDERED: PANT40TA3 PO (10:52)
[2017-03-01] MEDS ORDERED: POTA10TA36 PO (10:52)
[2017-03-01] MEDS ORDERED: TRAZ-28 PO (10:52)
[2017-03-01] MEDS ORDERED: GABA-488 PO (10:52)
[2017-03-01] MEDS ORDERED: NORT25CA PO (10:52)
[2017-03-01] MEDS ORDERED: INSU100V6 SQ (10:52)
[2017-03-01] MEDS ORDERED: LIDO6JEL TOP ×2 (11:05)
[2017-03-01] MEDS ORDERED: ONDA8TAB6 PO (11:05)
[2017-03-01] MEDS ORDERED: CRAN500C5 PO (11:27)
[2017-03-01] MEDS ORDERED: HYDR-3820 PO (11:27)
[2017-03-01] MEDS ORDERED: BIOT25007 PO (11:27)
[2017-03-01] MEDS ORDERED: CHOL20002 PO (11:27)
[2017-03-01] MEDS ORDERED: SENN-1 PO (11:27)
[2017-03-01] MEDS ORDERED: POLY17PO6 PO (11:27)
[2017-03-01] MEDS ORDERED: MENT71OI TP (11:27)
[2017-03-01] MEDS ORDERED: MULT-166 PO (11:27)
[2017-03-01] MEDS ORDERED: ALPR0.5T7 PO (11:27)
[2017-03-01] MEDS ORDERED: FERR325T24 PO (11:27)
[2017-03-01] MEDS ORDERED: TRAM50TA2 PO (11:27)
--- NOTE | 2017-03-01 12:39 | Diagnostic Imaging Report ---
EXAMINATION: Portable upright radiograph of the chest. INDICATION: PICC line placement. FINDINGS: Right PICC line is placed with the tip at the lower aspect of the right atrium. Pullback 6 cm recommended into the cavoatrial junction. The lungs demonstrate mild prominence of interstitial markings probably related to vascular congestion. There is cardiomegaly. No focal infiltrate. No effusion or pneumothorax. The mediastinum and raeann appear unremarkable. IMPRESSION: 1. The PICC line tip is in the lower right atrium. 6 cm pullback is recommended. 2. Cardiomegaly with mild vascular congestion. The PICC line nurse Trice was called and informed of our recommendations at 12:13 PM. Dictated by: Dictated on workstation # [id number]
[2017-03-01] MEDS ORDERED: INFLUENZA TRIvalent 2017-2018 0.5 ML/45 MCG SYR IM ONE (13:00)
--- NOTE | 2017-03-01 15:31 | Consultation-Cardiology ---
HPI-Cardiology Cardiology Consultation Date of Consultation 03/01/17 Date of Admission Time Seen by Provider: 15:27 Indication: hypotension HPI 51 years old lady with history of multiple sclerosis, has limited exercise ability, transferred from [facility] for severe sepsis and acute his ulcer and cellulitis. Reported that she was told that she had an ejection fraction of 10 percent at the emergency room. Did not see any coin purse framer in the past, no cardiology follow-up was made. Transferred for evaluation. She is currently in sepsis with sinus tachycardia and hypotension. No shortness of breath. No palpitation. No chest pain. No syncope. Home Medications & Allergies Allergies: Coded Allergies: No Known Drug Allergies (Unverified , 02/28/17) Home Medication List Reviewed: Yes EAZ-Bsikki-Lizmss Hx Patient Social History Alcohol Use: Occasionally Uses Recreational Drug Use: Yes (hx of recreational drug use listed) Smoking Status: Unknown if Ever Smoked Recent Foreign Travel: No Recent Infectious Disease Expo: No Physical Abuse Screen: No Sexual Abuse: No Past Medical History past medical history as discussed below Family Medical History Family Medical Hx noncontributory to her current condition Constitutional: dizziness, malaise, weakness, other EENTM: see HPI Respiratory: see HPI, No cough, No dyspnea on exertion, No hemoptysis, No orthopnea, No phlegm, No short of breath, No stridor, No wheezing, No other Cardiovascular: see HPI, No chest pain, No edema, No Hx of Intervention, No palpitations, No syncope, No vascular heart diseas, No other Gastrointestinal: see HPI Genitourinary: see HPI Musculoskeletal: see HPI Skin: see HPI, other (decubitus ulcer) Psychiatric/Neurological: No Symptoms Reported, See HPI Reviewed Test Results Reviewed Test Results Lab Laboratory Tests Test 02/28/17 18:33 02/28/17 18:46 02/28/17 20:34 03/01/17 04:45 Range/Units White Blood Count 22.5 H 21.1 H 4.3-11.0 10^3/uL Red Blood Count 3.72 L 3.10 L 4.35-5.85 10^6/uL Hemoglobin 9.9 L 8.3 L 11.5-16.0 G/DL Hematocrit 32 L 26 L 35-52 % Mean Corpuscular Volume 85 84 80-99 FL Mean Corpuscular Hemoglobin 27 27 25-34 PG Mean Corpuscular Hemoglobin Concent 31 L 32 32-36 G/DL Red Cell Distribution Width 14.4 14.2 10.0-14.5 % Platelet Count 359 287 130-400 10^3/uL Mean Platelet Volume 11.2 H 11.0 H 7.4-10.4 FL Neutrophils (%) (Auto) 91 H 92 H 42-75 % Lymphocytes (%) (Auto) 5 L 6 L 12-44 % Monocytes (%) (Auto) 3 2 0-12 % Eosinophils (%) (Auto) 0 0 0-10 % Basophils (%) (Auto) 0 0 0-10 % Neutrophils # (Auto) 20.5 H 19.4 H 1.8-7.8 X 10^3 Lymphocytes # (Auto) 1.2 1.2 1.0-4.0 X 10^3 Monocytes # (Auto) 0.8 0.4 0.0-1.0 X 10^3 Eosinophils # (Auto) 0.0 0.0 0.0-0.3 10^3/uL Basophils # (Auto) 0.0 0.0 0.0-0.1 10^3/uL Neutrophils % (Manual) 86 % Lymphocytes % (Manual) 6 % Monocytes % (Manual) 1 % Eosinophils % (Manual) 0 % Basophils % (Manual) 0 % Band Neutrophils 7 % Blood Morphology Comment NORMAL Prothrombin Time 30.2 H 12.2-14.7 SEC INR Comment 2.9 H 0.8-1.4 Activated Partial Thromboplast Time 58 H 24-35 SEC Sodium Level 133 L 135 135-145 MMOL/L Potassium Level 4.1 3.0 L 3.6-5.0 MMOL/L Chloride Level 92 L 98 98-107 MMOL/L Carbon Dioxide Level 28 26 21-32 MMOL/L Anion Gap 13 11 5-14 MMOL/L Blood Urea Nitrogen 19 H 14 7-18 MG/DL Creatinine 0.72 0.59 L 0.60-1.30 MG/DL Estimat Glomerular Filtration Rate > 60 > 60 BUN/Creatinine Ratio 26 24 Glucose Level 206 H 197 H 70-105 MG/DL Lactic Acid Level 2.63 *H 3.06 *H 0.50-2.00 MMOL/L Calcium Level 9.1 7.9 L 8.5-10.1 MG/DL Total Bilirubin 0.8 0.8 0.1-1.0 MG/DL Aspartate Amino Transf (AST/SGOT) 11 8 5-34 U/L Alanine Aminotransferase (ALT/SGPT) 9 8 0-55 U/L Alkaline Phosphatase 118 98 40-136 U/L B-Type Natriuretic Peptide 737.1 H <100.0 PG/ML Total Protein 7.8 6.0 L 6.4-8.2 GM/DL Albumin 3.4 2.7 L 3.2-4.5 GM/DL Salicylates Level < 5.0 L 5.0-20.0 MG/DL Acetaminophen Level < 10 L 10-30 UG/ML Serum Alcohol < 10 <10 MG/DL Urine Color YELLOW Urine Clarity VERY CLOUDY H Urine pH 8 5-9 Urine Specific [place] 1.015 L 1.016-1.022 Urine Protein 2+ H NEGATIVE Urine Glucose (UA) NEGATIVE NEGATIVE Urine Ketones NEGATIVE NEGATIVE Urine Nitrite NEGATIVE NEGATIVE Urine Bilirubin 1+ H NEGATIVE Urine Urobilinogen 1 NORMAL MG/DL Urine Leukocyte Esterase 3+ H NEGATIVE Urine RBC (Auto) 4+ H NEGATIVE Urine RBC 2-5 H /HPF Urine WBC 10-25 H /HPF Urine Crystals NONE /LPF Urine Bacteria LARGE H /HPF Urine Casts NONE /LPF Urine Mucus NEGATIVE /LPF Urine Culture Indicated YES Urine Opiates Screen POSITIVE H NEGATIVE Urine Oxycodone Screen NEGATIVE NEGATIVE Urine Methadone Screen NEGATIVE NEGATIVE Urine Propoxyphene Screen NEGATIVE NEGATIVE Urine Barbiturates Screen NEGATIVE NEGATIVE Ur Tricyclic Antidepressants Screen POSITIVE H NEGATIVE Urine Phencyclidine Screen NEGATIVE NEGATIVE Urine Amphetamines Screen NEGATIVE NEGATIVE Urine Methamphetamines Screen NEGATIVE NEGATIVE Urine Benzodiazepines Screen POSITIVE H NEGATIVE Urine Cocaine Screen NEGATIVE NEGATIVE Urine Cannabinoids Screen NEGATIVE NEGATIVE Phosphorus Level 2.3 2.3-4.7 MG/DL Magnesium Level 1.3 L 1.8-2.4 MG/DL Test 03/01/17 12:29 Range/Units Glucometer 182 H 70-110 MG/DL Physical Exam Vital Signs Vital Sign - Last 12Hours 02/28/17 02/28/17 19:02 20:52 Temp 98.1 Pulse 130 Resp 18 B/P (MAP) 107/89 Pulse Ox 96 O2 Delivery Room Air Capillary Refill : Less Than 3 Seconds General Appearance: WD/WN, Mild Distress Eyes: Bilateral Eye Normal Inspection, Bilateral Eye PERRL, Bilateral Eye EOMI HEENT: PERRL/EOMI, TMs Normal, Normal ENT Inspection, Pharynx Normal Neck: Full Range of Motion, Normal Inspection, Non Tender, Supple, Carotid Bruit Respiratory: Chest Non Tender, Lungs Clear, Normal Breath Sounds, No Accessory Muscle Use, No Respiratory Distress Cardiovascular: No Edema, No Gallop, No JVD, Normal Peripheral Pulses, Systolic Murmur, Tachycardia Gastrointestinal: Normal Bowel Sounds, No Organomegaly, No Pulsatile Mass, Non Tender, Soft Back: Normal Inspection, No CVA Tenderness, No Vertebral Tenderness Extremity: Normal Capillary Refill, Normal Inspection, Normal Range of Motion, Non Tender, No Calf Tenderness, No Pedal Edema Neurologic/Psychiatric: Alert, Oriented x3, No Motor/Sensory Deficits, Normal Mood/Affect Skin: Normal Color, Warm/Dry Lymphatic: No Adenopathy A/P-Cardiology Admission Diagnosis Severe sepsis Hypotension Sinus tachycardia Decubitus ulcer Assessment/Plan Severe sepsis, secondary to cellulitis and decubitus ulcer, receiving IV fluids , monitored by primary care physician, managed by Dr. Chowdhury. Sinus tachycardia, secondary to sepsis, continue to monitor heart rate closely. Congestive heart failure with severe left ventricular systolic dysfunction, currently patient is hypotensive cannot tolerate beta blockers, LUANA inhibitor and/or ARB. Will need to be initiated on these medication once more clinically stable. Etiology of congestive heart failure is unknown. Could be ischemic in nature. Hypotension, secondary to sepsis, continue with IV fluid support and monitor blood pressure closely Questionable congestive heart failure, reporting that had history of heart failure with ejection fraction 10 percent, no signs of congestive heart failure. planning to evaluate 2-D echocardiogram History of DVT maintained on Xarelto History of multiple sclerosis. Generalized weakness and limited exercise ability, limited mobility Decubitus ulcer Clinical Quality Measures DVT/VTE Risk/Contraindication: Risk Factor Score Per Nursin RFS Level Per Nursing on Admit: 4+=Very High PARAMJIT ONEILL MD Mar 01, 2017 15:31
--- NOTE | 2017-03-01 16:27 | CONSULTATION REPORT ---
DATE OF SERVICE: HISTORY OF PRESENT ILLNESS: The patient is a 51-year-old female who was brought in by EMS through the [facility] located in [place], [place] due to lethargy and suspected urinary tract infection. She has a history of multiple sclerosis diagnosed at approximately age 30. She reports that this was initially slowly progressive; however, in the past 10 years, this has progressed at a rapid rate. She does not have any function of her lower extremities as well as the lower torso and has moderate neurologic motor activity of her upper extremities. It appears that she does have normal mentation. She reports that she has been at two different locations recently and does have a nursing assistance approximately four times a day. She does have history of decubitus ulcers located on the right lower extremity overlying the lateral malleolus as well as two areas just anterior to this as well as a previous sacral decubitus ulcer. She states that the wounds of the lower extremity had been cared for in [place] in the past. She was brought to the Emergency Department due to lethargy and workup was done which did show an elevated white count, positive urinary tract infection with indwelling Logan catheter as well as redness and erythema overlying the right hip and anterior thigh. Upon further examination, it was found to have a recurrent sacral decubitus ulcer with some necrotic debris around the open wound and exposed fascia overlying the sacral bone consistent with a stage III-IV sacral decubitus ulcer. We were consulted for debridement of the sacral decubitus ulcer. PAST MEDICAL HISTORY: Multiple sclerosis, history of COPD and pulmonary embolism, history of a deep vein thrombosis, chronic renal failure, chronic urinary tract infection, noninsulin-dependent diabetes, anxiety, depression, history of decubitus ulcers. PAST SURGICAL HISTORY: None. ALLERGIES: No known drug allergies. MEDICATIONS: Alprazolam 0.5 mg q.i.d. p.r.n., baclofen 10 mg t.i.d., Xarelto 20 mg daily, potassium daily, Protonix 40 mg daily, insulin sliding scale, nortriptyline 25 mg daily, gabapentin 300 mg t.i.d., Lasix 40 mg daily, folic acid 1 mg daily, cetirizine 10 mg daily, Enablex 15 mg daily, tramadol 50 mg p.r.n., trazodone 50 mg each day at bedtime, trimethoprim 100 mg daily. SOCIAL HISTORY: Occasional alcohol, negative smoke. FAMILY HISTORY: Noncontributory. VITAL SIGNS: Temperature 98.6, blood pressure 192/65, pulse 116, pulse ox 99% on room air. REVIEW OF SYSTEMS: Well-nourished female currently in no acute distress. She is not experiencing any shortness of breath or difficulty breathing. No chest pain, palpitations, diaphoresis. No nausea, vomiting with stool incontinence, no known red blood per rectum, no dark tarry stools. No known fever or chills. No recent inadvertent weight loss. All other review of systems negative. PHYSICAL EXAMINATION: CHEST: A few scattered rales and rhonchi bilaterally. HEART: Sinus tachycardia. No murmurs. EXTREMITIES: +2/3 bilateral lower extremity edema with decubitus ulcers along the right lateral, 3 decubitus ulcers along the right distal lateral lower extremity with good granulation bed and no surrounding redness or erythema. NECK: Negative Homans sign. ABDOMEN: Soft, nontender, nondistended. There is a large umbilical hernia, which is easily reducible. SKIN: There is a stage III-IV sacral decubitus ulcer with a rim of surrounding redness, erythema as well as necrotic debris. ASSESSMENT AND PLAN: A 51-year-old female with between stage III and IV sacral decubitus ulcer with surrounding redness, erythema and necrotic debris with secondary infection. She is currently on antibiotic therapy for this as well as other open wounds as well as urinary tract infection. She has responded well so far with medical management; however, the natural history of the sacral decubitus wound was explained to the patient and the part of the reason why she does have a septic complication and the need for offloading pressure within the region as well as debridement and wound care to allow for closure by secondary intention. She is in full understanding of the risks and benefits of surgery and would like to proceed with debridement of the wound under light MAC anesthesia as well as local which we will proceed with in the operating room. Job ID: [id number] DocumentID: [id number] Dictated Date: 03/01/2017 14:44:56 Overlay Plastician Date: 03/01/2017 16:27:21 Dictated By: ANTHONY SHULTZ MD [facility] HOSPITALNetta
--- NOTE | 2017-03-01 16:29 | History & Physical-Hospitalist ---
HPI History of Present Illness: HPI/Chief Complaint The patient is a 51-year-old white female. She was brought to the emergency room from a crisis center. The various circumstances are quite unclear to us here. It is thought that she had been living independently and had been moved by the state to this center. It is also known that she has multiple sclerosis and has had pressure sores for some months. How this meets with the crisis Center capabilities is not at all clear. She apparently had seen some sort of wound care facility in [place]. The crisis center was concerned about her lethargy and malodorous urine. The patient was not able or willing to give much history. She is known to be diabetic and also to take Lasix and Xarelto. She reports that she uses a mechanical left to transfer and in recent weeks had a pinch or accident as a result of that and has developed a sore which is increasing in size and painful and malodorous over the coccyx area. She also has wounds on the right distal lateral fibula that are dry and as a result of pressure and also right heel sores on the posterior surface. Information obtained in the emergency room also suggested she has chronic lymphedema and an anticoagulant use the warfarin-induced coagulopathy and pulmonary embolus. She is said to have an ejection fraction of 15-20 percent but has no idea as to what the ailment might be. Source: patient, family Exam Limitations: no limitations Date Seen 03/01/17 Time Seen by Provider: 16:22 Attending Physician Abram Small MD PCP No,Local Physician Referring Physician Date of Admission Feb 28, 2017 at 19:34 Home Medications & Allergies Home Medications Reviewed patient Home Medication Reconciliation Form Allergies Allergies Coded Allergies No Known Drug Allergies ([id number]/17) Past Yfuacyt-Cbibie-Hujxlb Hx Patient Social History Alcohol Use: Occasionally Uses Number of Drinks Today: 0 Alcohol Beverage of Choice: Beer, Wine Recreational Drug Use: Yes (hx of recreational drug use listed) Smoking Status: Unknown if Ever Smoked Physical Abuse Screen: No Sexual Abuse: No Recent Foreign Travel: No Contact w/other who traveled: No Recent Infectious Disease Expo: No Seasonal Allergies Seasonal Allergies: No Respiratory Yes Cardiovascular Yes Deep Vein Thrombosis, Hypotension Neurological Yes Multiple Sclerosis Genitourinary Yes Renal Failure, UTI-Chronic Gastrointestinal Yes Hiatal Hernia Endocrine History of Endocrine Disorders: Yes Endocrine Disorders: Diabetes, Non-Insulin dep HEENT History of HEENT Disorders: No Psychosocial History of Psychiatric Problem: Yes Behavioral Health Disorders: Sleep Difficulties, Anxiety, Depression Integumentary History of Skin or Integumenta: Yes (sacral wound/ulcer, rash under breasts) Review of Systems Constitutional: see HPI EENTM: no symptoms reported Respiratory: no symptoms reported Cardiovascular: other (history of cardiomyopathy) Gastrointestinal: no symptoms reported Genitourinary: other (Logan catheter and history of urinary tract infections) Musculoskeletal: muscle weakness, other (spasticity) Skin: see HPI, other (history of bilateral lower extremity lymphedema) Psychiatric/Neurological: Depressed Physical Exam Physical Exam Vital Signs Vital Sign - Last 12Hours 02/28/17 02/28/17 19:02 20:52 Temp 98.1 Pulse 130 Resp 18 B/P (MAP) 107/89 Pulse Ox 96 O2 Delivery Room Air Capillary Refill : Less Than 3 Seconds General Appearance: Other (very reserved) Eyes: Bilateral Eye Normal Inspection HEENT: Normal ENT Inspection Neck: Normal Inspection Respiratory: Chest Non Tender, Lungs Clear, Normal Breath Sounds, No Accessory Muscle Use, No Respiratory Distress Cardiovascular: Regular Rate, Rhythm, No Edema, No Gallop, No JVD, No Murmur, Normal Peripheral Pulses Gastrointestinal: Other (large pannus) Neurologic/Psychiatric: Alert, Oriented x3 Comments There is a large pressure sore over the sacral area. There is considerable erythema extending from the right mid axillary line anteriorly across the upper thigh and groin. There is evidence bilaterally and also in the intertriginous area under the breasts of [place]. There are several wounds with eschars over the right distal lateral malleolus. There is a similar pressure sore on the posterior heel. Results Results/Procedures Lab Laboratory Tests 02/28/17 18:33 03/01/17 04:45 Assessment/Plan Admission Diagnosis 1.possible sepsis. 2.apparent urinary tract infection. 3.cellulitis right upper thigh. 4.candidiasis groin and intertriginous area bilateral breasts. 5.multiple sclerosis. 6.diabetes Assessment and Plan Empiric IV antibiotics. Wound care consult. Cardiology consult. Critical care consult. Clinical Quality Measures DVT/VTE Risk/Contraindication: Risk Factor Score Per Nursin RFS Level Per Nursing on Admit: 4+=Very High ABRAM SMALL MD Mar 01, 2017 16:29
[2017-03-01] MEDS ORDERED: POLYETHYLENE GLYCOL 17 GM (MIRALAX) PACK PO PRN (16:30)
[2017-03-01] MEDS ORDERED: POTASSIUM CL 10MEQ/50ML IVPB 50 ML IV SCH ×2 (17:00→21:00)
[2017-03-01] MEDS ORDERED: KCL 20 MEQ TAB (K-DUR) PO SCH (17:00)
[2017-03-01] MEDS: RIVAROXABAN 20 MG TABLET (XARELTO) PO SCH (17:44)
[2017-03-01] MEDS: FERROUS SULF 325 MG (IRON) TAB PO SCH (17:44)
[2017-03-01] MEDS: MENTHOL/ZINC OXIDE (CALMOSEPTINE) 113 GM TUBE TP SCH ×2 (19:50→21:23)
--- NOTE | 2017-03-01 19:58 | Wound Care Progress Note ---
Subjective Subjective Subjective/Events-last exam The patient is a 51 year old female with long-standing debility due to Multiple Sclerosis, admitted for urosepsis, and noted to have multiple pressure ulcers on admission. The patient had been staying at a local detention, when noted to have level of consciousness. The pressure ulcers of sacrum, R lateral calf x 2, and R lateral malleolus have been present for many months, although it is hard to pin down to an exact date in conversation with the patientat this interview. Review of Systems Date Seen by Provider: Mar 01, 2017 Time Seen by Provider: 19:15 General: Chills HEENT: No Visual Changes Pulmonary: No Dyspnea Cardiovascular: No: Chest Pain Gastrointestinal: Other (Incontinent of stool, impacted.), No: Abdominal Pain Genitourinary: Incontinence Musculoskeletal: back pain, leg pain Neurological: Weakness, Numbness, Incoordination Skin: See HPI Endocrine: Blood glucoses run 160 - 200 , by patient report. Objective Exam Last Set of Vital Signs Vital Signs Date Time Temp Pulse Resp B/P (MAP) Pulse Ox O2 Delivery O2 Flow Rate FiO2 03/01/17 18:00 118 27 102/70 96 Room Air 03/01/17 16:21 100.0 Capillary Refill : Less Than 3 Seconds I&O Intake and Output 03/02/17 00:00 Intake Total 3850 ml Output Total 1485 ml Balance 2365 ml Intake Oral 400 ml IV Total 3450 ml Output Urine Total 1485 ml # Bowel Movements 2 Results Lab Laboratory Tests 02/28/17 20:34: Lactic Acid Level 3.06*H 03/01/17 04:45: White Blood Count 21.1H, Red Blood Count 3.10L, Hemoglobin 8.3L, Hematocrit 26L , Mean Corpuscular Volume 84, Mean Corpuscular Hemoglobin 27, Mean Corpuscular Hemoglobin Concent 32, Red Cell Distribution Width 14.2, Platelet Count 287, Mean Platelet Volume 11.0H, Neutrophils (%) (Auto) 92H, Lymphocytes (%) (Auto) 6L, Monocytes (%) (Auto) 2, Eosinophils (%) (Auto) 0, Basophils (%) (Auto) 0, Neutrophils # (Auto) 19.4H, Lymphocytes # (Auto) 1.2, Monocytes # (Auto) 0.4, Eosinophils # (Auto) 0.0, Basophils # (Auto) 0.0, Sodium Level 135, Potassium Level 3.0L, Chloride Level 98, Carbon Dioxide Level 26, Anion Gap 11, Blood Urea Nitrogen 14, Creatinine 0.59L, Estimat Glomerular Filtration Rate > 60, BUN /Creatinine Ratio 24, Glucose Level 197H, Calcium Level 7.9L, Phosphorus Level 2.3, Magnesium Level 1.3L, Total Bilirubin 0.8, Aspartate Amino Transf (AST/SGOT ) 8, Alanine Aminotransferase (ALT/SGPT) 8, Alkaline Phosphatase 98, Total Protein 6.0L, Albumin 2.7L 03/01/17 12:29: Glucometer 182H 03/01/17 16:21: Potassium Level 2.7L 03/01/17 17:42: Glucometer 160H Microbiology 02/28/17 Blood Culture - Preliminary, Resulted No growth 02/28/17 Urine Culture - Preliminary, Resulted Gram Negative Leon Proteus Species Gram Positive Cocci In Chains HOLLAND OWENS MD Mar 01, 2017 19:58
[2017-03-01] MEDS ORDERED: LIDOCAINE UROJET 2% GEL 10 ML PKG TOP SCH (21:00)
[2017-03-01] MEDS ORDERED: NON-FORMULARY MEDICATION 1 EA EA (Trimethoprim 100 MG) PO SCH (21:00)
[2017-03-01] MEDS ORDERED: inSUlin DETERMIR 1 UNIT/0.01 ML (LEVEMIR) CHARGE PER UNIT SQ SCH (21:00)
[2017-03-01] MEDS: BACLOFEN 10 MG (LIORESAL) TAB PO SCH (21:03)
[2017-03-01] MEDS: GABAPENTIN 300 MG (NEURONTIN) CAP PO SCH (21:03)
[2017-03-01] MEDS: HYDROcodone/APAP 10 MG/325 MG (LORTAB) TAB PO PRN (21:03)
[2017-03-01] MEDS: SENNA W/DOCUSATE (SENOKOT S) TABLET PO SCH (21:03)
[2017-03-01] MEDS: traZODone 50 MG (DESYREL) TAB PO SCH (21:03)
[2017-03-01] MEDS: NORTRIPTYLINE 25 MG (PAMELOR) CAP PO SCH (21:03)
[2017-03-01] MEDS: VANCOMYCIN 1500 MG/NS 500 ML IVPB IV SCH ×2 (21:04)
[2017-03-01] MEDS: ALPRAZolam 1 MG (XANAX) TAB PO PRN (21:12)
[2017-03-01] MEDS: inSUlin DETERMIR 1 UNIT/0.01 ML (LEVEMIR) CHARGE PER UNIT SQ SCH (21:36)
[2017-03-02] VITALS (20 sets, daily range): BP systolic 83–108; BP diastolic 54–74
[2017-03-02 04:33] LABS: BASOPHILS % (AUTO) 0 % (0-10); EOSINOPHILS # (AUTO) 0.1 10^3/uL (0.0-0.3); EOSINOPHILS % (AUTO) 0 % (0-10); LYMPHOCYTES # (AUTO) 2.4 X 10^3 (1.0-4.0); LYMPHOCYTES % (AUTO) 19 % (12-44); MEAN CORPUSCULAR HEMOGLOBIN 27 PG (25-34); MEAN CORPUSCULAR HGB CONC 31 G/DL (32-36); MEAN CORPUSCULAR VOLUME 85 FL (80-99); MEAN PLATELET VOLUME 10.7 FL (7.4-10.4); MONOCYTES # (AUTO) 0.8 X 10^3 (0.0-1.0); MONOCYTES % (AUTO) 6 % (0-12); NEUTROPHILS # (AUTO) 9.3 X 10^3 (1.8-7.8); NEUTROPHILS % (AUTO) 74 % (42-75); PLATELET COUNT 275 10^3/uL (130-400); RED BLOOD COUNT 2.71 10^6/uL (4.35-5.85); RED CELL DISTRIBUTION WIDTH 14.3 % (10.0-14.5); WHITE BLOOD COUNT 12.5 10^3/uL (4.3-11.0)
[2017-03-02 04:56] LABS: ALANINE AMINOTRANSFERASE 6 U/L (0-55); ALBUMIN 2.3 GM/DL (3.2-4.5); ANION GAP 7 MMOL/L (5-14); ASPARTATE AMINO TRANSFERASE 7 U/L (5-34); BILIRUBIN,TOTAL 0.5 MG/DL (0.1-1.0); BLOOD UREA NITROGEN 8 MG/DL (7-18); BUN/CREATININE RATIO 17; CALCIUM 7.5 MG/DL (8.5-10.1); CARBON DIOXIDE 27 MMOL/L (21-32); CHLORIDE 106 MMOL/L (98-107); CREATININE SERUM 0.46 MG/DL (0.60-1.30); GFR ESTIMATED > 60; MAGNESIUM 1.7 MG/DL (1.8-2.4); PHOSPHORUS 1.9 MG/DL (2.3-4.7); SODIUM 140 MMOL/L (135-145); TOTAL PROTEIN 5.4 GM/DL (6.4-8.2)
[2017-03-02] MEDS: NS IV 1000 ML 1,000 ML IV SCH (05:00)
[2017-03-02] MEDS: KCL 20 MEQ TAB (K-DUR) PO SCH (05:02)
[2017-03-02] MEDS: MEROPENEM 500 MG/NS 100 ML IVPB IV SCH ×8 (05:02→23:30)
[2017-03-02 05:26] LABS: GLUCOSE 55 MG/DL (70-105); POTASSIUM 2.3 MMOL/L (3.6-5.0)
[2017-03-02] MEDS ORDERED: DEXTROSE 50% 50 ML (IMS) SYR IV PRN (05:30)
[2017-03-02] MEDS: MAGNESIUM 1 GM/100 ML IVPB 100 ML IV SCH ×3 (05:37→06:46)
[2017-03-02] MEDS: POTASSIUM CL 10MEQ/50ML IVPB 50 ML IV SCH ×14 (05:37→21:05)
[2017-03-02] MEDS: CATHETER FLUSH 10 ML SYR IV SCH ×3 (05:38→20:54)
[2017-03-02] MEDS: inSUlin (REGULAR) HUMAN 1 UNIT/0.01 ML (CHARGE PER UNIT) SC SCH ×4 (05:38→20:52)
[2017-03-02] MEDS ORDERED: KCL 10 MEQ TAB (MICRO K) PO NR (06:50)
[2017-03-02] MEDS ORDERED: NS W/KCL 20 MEQ/L 1,000 ML IV SCH (07:00)
[2017-03-02] MEDS ORDERED: KCL 10 MEQ TAB (MICRO K) PO SCH (07:00)
--- NOTE | 2017-03-02 07:52 | Diagnostic Imaging Report ---
INDICATION: Septic shock. Compared 03/01/2017 FINDINGS: Right PICC catheter tip is at the cavoatrial junction in good alignment. There is poor inspiratory volume, decreased from prior. There is increased perihilar congestion and edema versus pneumonia. This is greatest in the infrahilar region on the right. No appreciable pleural fluid, however, no pneumothorax. IMPRESSION: Worsened failure and perihilar infiltrates. PICC line now in good position. Dictated by: Dictated on workstation # [id number]
[2017-03-02] MEDS ORDERED: FUROSEMIDE 40 MG (LASIX) TAB PO SCH (09:00)
[2017-03-02] MEDS ORDERED: RIVAROXABAN 20 MG TABLET (XARELTO) PO SCH (09:00)
[2017-03-02] MEDS: BACLOFEN 10 MG (LIORESAL) TAB PO SCH ×3 (09:59→20:53)
[2017-03-02] MEDS: SENNA W/DOCUSATE (SENOKOT S) TABLET PO SCH ×2 (09:59→20:52)
[2017-03-02] MEDS: MULTIVIT W/MINERALS TAB (THERAGRAN M) PO SCH (09:59)
[2017-03-02] MEDS: FOLIC ACID 1 MG TAB PO SCH (09:59)
[2017-03-02] MEDS: PANTOPRAZOLE 40 MG (PROTONIX) TAB PO SCH (09:59)
[2017-03-02] MEDS: FERROUS SULF 325 MG (IRON) TAB PO SCH ×2 (09:59→16:41)
[2017-03-02] MEDS: GABAPENTIN 300 MG (NEURONTIN) CAP PO SCH ×3 (09:59→20:53)
[2017-03-02] MEDS: ZINC OXIDE 16% OINT (BUTT PASTE) 113 GM TUBE TOP SCH ×3 (10:00→20:54)
[2017-03-02] MEDS: VANCOMYCIN 1500 MG/NS 500 ML IVPB IV SCH ×4 (10:03→21:01)
--- NOTE | 2017-03-02 10:34 | Cardiology Progress Note ---
Subjective Date Seen by Provider: Mar 02, 2017 Time Seen by Provider: 10:31 Subjective/Events-last exam Patient is in bed. No new complaint. Denies any CP or dyspnea. Review of Systems General: No Night Sweats, Fatigue, Malaise HEENT: No Visual Changes, No Dysphasia, No Sore Throat Pulmonary: No Dyspnea, No Cough Cardiovascular: No: Chest Pain, Palpitations, Paroxysmal Noc. Dyspnea, Edema Gastrointestinal: No: Nausea, Vomiting, Abdominal Pain Genitourinary: No Dysuria, No Hematuria Musculoskeletal: No: neck pain, back pain Neurological: Weakness, No: Numbness, Change in speech, Confusion Objective-Cardiology Exam Last Set of Vital Signs Vital Signs 03/02/17 03/02/17 03/02/17 04:00 06:00 07:00 Temp 98.1 Pulse 103 Resp 14 B/P (MAP) 89/60 Pulse Ox 98 O2 Delivery Room Air Capillary Refill : Less Than 3 Seconds I&O Intake and Output 03/03/17 00:00 Intake Total 1800 ml Output Total 950 ml Balance 850 ml Intake Oral 50 ml IV Total 1750 ml Output Urine Total 950 ml # Bowel Movements 2 General: Alert, Oriented X3, Cooperative HEENT: Atraumatic, PERRLA Neck: Supple, No JVD, No Thyromegaly Lungs: Clear to Auscultation, Normal Air Movement Heart: Normal S1, Normal S2, Other (tachycardic) Abdomen: Normal Bowel Sounds, Soft Skin: No Rashes, No Significant Lesion Neuro: Normal Speech, Cranial Nerves 3-12 NL Psych/Mental Status: Mental Status NL, Mood NL Results Lab Laboratory Tests 03/01/17 16:21 03/02/17 04:25 A/P-Cardiology Admission Diagnosis Severe sepsis Hypotension Sinus tachycardia Decubitus ulcer Assessment/Plan Severe sepsis, secondary to cellulitis and decubitus ulcer, receiving IV fluids , monitored by primary care physician, managed by Dr. Chowdhury. Sinus tachycardia, secondary to sepsis, continue to monitor heart rate closely. Congestive heart failure with severe left ventricular systolic dysfunction, currently patient is hypotensive cannot tolerate beta blockers, LUANA inhibitor and/or ARB. Will need to be initiated on these medication once more clinically stable. Etiology of congestive heart failure is unknown. Could be ischemic in nature. Hypotension, secondary to sepsis, continue with IV fluid support and monitor blood pressure closely History of DVT maintained on Xarelto History of multiple sclerosis. Generalized weakness and limited exercise ability, limited mobility Decubitus ulcer Clinical Quality Measures DVT/VTE Risk/Contraindication: Risk Factor Score Per Nursin RFS Level Per Nursing on Admit: 4+=Very High FIOR AMADOR Mar 02, 2017 10:34
--- NOTE | 2017-03-02 11:45 | Progress Note-Hospitalist ---
Progress Note HPI/CC on Admission The patient is a 51-year-old white female. She was brought to the emergency room from a crisis center. The various circumstances are quite unclear to us here. It is thought that she had been living independently and had been moved by the state to this center. It is also known that she has multiple sclerosis and has had pressure sores for some months. How this meets with the crisis Center capabilities is not at all clear. She apparently had seen some sort of wound care facility in [place]. The crisis center was concerned about her lethargy and malodorous urine. The patient was not able or willing to give much history. She is known to be diabetic and also to take Lasix and Xarelto. She reports that she uses a mechanical left to transfer and in recent weeks had a pinch or accident as a result of that and has developed a sore which is increasing in size and painful and malodorous over the coccyx area. She also has wounds on the right distal lateral fibula that are dry and as a result of pressure and also right heel sores on the posterior surface. Information obtained in the emergency room also suggested she has chronic lymphedema and an anticoagulant use the warfarin-induced coagulopathy and pulmonary embolus. She is said to have an ejection fraction of 15-20 percent but has no idea as to what the ailment might be. Progress Notes/Assess & Plan Date Seen 03/02/17 Time Seen by Provider: 10:30 Diagonsis/Assessment & Plan Chart Review: No fever BP 89/60 WBC 12.5 down from 22.5 Hgb 7.2 K+ 2.3 was 2. 7 Albumin 2.3 Urine cx E coli, Proteus, and Enterococcus Blood cx coag negative staph Pt on Meropenem and Vanc tanning solution maker: K+ was 2.3 this am. Pt was given 60 meq of K+ IV then 40 PO, then K+ dropped. K + recheck will be around [address] Chowdhury would like to move the pt to the floor BP is much better today Dr. Reeves is on board Dr. Olivera will debride sacral tomorrow [facility] on DC Patient Review: Pt states she is doing better today and has been eating well enough Pt denies having a PCP Pt confirms a procedure with Dr. Olivera tomorrow Pt confirms meeting Dr. Reeves Physical exam stable [facility] plans on DC were discussed, but states she is not happy to go there Pt confirms having a catheter all the time Pt confirms pain around her buttocks Abx were discussed as well as debridement Pt states she can't wait to sit and go to bed AFVSS, pleasant, chronically ill, flat affect RRR, CTAB diminished in bases No edema, limited ROM due to chronic weakness from MS bedbound Assessment per Admit: 1.possible sepsis. 2.apparent urinary tract infection. 3.cellulitis right upper thigh. 4.candidiasis groin and intertriginous area bilateral breasts. 5.multiple sclerosis. 6.diabetes 7. Chronic debility Plan: Debridement tomorrow - Dr. Olivera [facility] upon DC Monitor pt Abx Scribed by Indu Walden under the direct supervision of Dr. Mathias. JACOBO AMTHIAS DO Mar 02, 2017 11:45
[2017-03-02] MEDS: DAKIN'S 1/4 STRENGTH (0.125%) 473 ML BTL TOP SCH ×2 (12:20→20:54)
--- NOTE | 2017-03-02 13:05 | Progress Note (SOAP) ---
Subjective Date Seen by Provider: Mar 02, 2017 Time Seen by Provider: 12:45 Subjective/Events-last exam doing better. less erythema and redness. no fever/chills. Objective Exam Vital Signs Date Time Temp Pulse Resp B/P (MAP) Pulse Ox O2 Delivery O2 Flow Rate FiO2 03/02/17 12:00 110 23 98/68 100 Room Air 03/02/17 11:00 110 10 95/74 99 Room Air 03/02/17 10:00 109 12 103/73 100 Room Air 03/02/17 09:00 107 7 101/71 99 Room Air 03/02/17 08:00 102 15 90/64 97 Room Air 03/02/17 07:00 103 15 94/66 99 Room Air 03/02/17 07:00 103 03/02/17 06:00 97 14 89/60 98 Room Air 03/02/17 05:10 100 10 94/60 95 Room Air 03/02/17 05:00 101 16 87/57 97 Room Air 03/02/17 04:00 98 Room Air 03/02/17 04:00 98.1 98 15 86/57 97 Room Air 03/02/17 03:00 97 15 89/61 96 Room Air 03/02/17 02:00 100 15 90/62 94 Room Air 03/02/17 01:00 103 03/02/17 01:00 103 33 83/54 96 Room Air 03/02/17 00:00 97.6 108 18 86/55 95 Room Air 03/02/17 00:00 98 Room Air 03/01/17 23:00 110 32 90/57 93 Room Air 03/01/17 22:00 112 22 97/61 95 Room Air 03/01/17 21:00 116 23 92/58 96 Room Air 03/01/17 20:00 98.6 117 33 95/58 95 Room Air 03/01/17 20:00 98 Room Air 03/01/17 19:00 120 20 104/71 93 Room Air 03/01/17 19:00 120 03/01/17 18:00 118 27 102/70 96 Room Air 03/01/17 17:00 118 23 107/71 96 Room Air 03/01/17 16:21 100.0 117 13 101/69 95 Room Air 03/01/17 16:21 98 Room Air 03/01/17 16:00 117 13 96/64 97 Room Air 03/01/17 15:00 117 24 93/60 96 Room Air 03/01/17 14:00 115 23 94/60 98 Room Air 03/01/17 13:00 116 23 92/63 99 Room Air 03/01/17 13:00 115 I & O 03/03/17 07:00 Intake Total 350 ml Balance 350 ml Capillary Refill : Less Than 3 Seconds General Appearance: No Apparent Distress HEENT: PERRL/EOMI Neck: Full Range of Motion Respiratory: Chest Non Tender, Normal Breath Sounds Cardiovascular: Regular Rate, Rhythm Gastrointestinal: normal bowel sounds, non tender, soft Extremity: Normal Capillary Refill Neurologic/Psychiatric: Alert, Oriented x3 Skin: Normal Color Lymphatic: No Adenopathy Results Lab Laboratory Tests 03/01/17 16:21: Potassium Level 2.7L 03/01/17 17:42: Glucometer 160H 03/01/17 21:20: Glucometer 159H 03/02/17 04:25: Potassium Level 2.3*L, White Blood Count 12.5H, Red Blood Count 2.71L, Hemoglobin 7.2L, Hematocrit 23L, Mean Corpuscular Volume 85, Mean Corpuscular Hemoglobin 27, Mean Corpuscular Hemoglobin Concent 31L, Red Cell Distribution Width 14.3, Platelet Count 275, Mean Platelet Volume 10.7H, Neutrophils (%) ( Auto) 74, Lymphocytes (%) (Auto) 19, Monocytes (%) (Auto) 6, Eosinophils (%) ( Auto) 0, Basophils (%) (Auto) 0, Neutrophils # (Auto) 9.3H, Lymphocytes # (Auto ) 2.4, Monocytes # (Auto) 0.8, Eosinophils # (Auto) 0.1, Basophils # (Auto) 0.0 , Sodium Level 140, Chloride Level 106, Carbon Dioxide Level 27, Anion Gap 7, Blood Urea Nitrogen 8, Creatinine 0.46L, Estimat Glomerular Filtration Rate > 60 , BUN/Creatinine Ratio 17, Glucose Level 55*L, Calcium Level 7.5L, Phosphorus Level 1.9L, Magnesium Level 1.7L, Total Bilirubin 0.5, Aspartate Amino Transf ( AST/SGOT) 7, Alanine Aminotransferase (ALT/SGPT) 6, Alkaline Phosphatase 81, Total Protein 5.4L, Albumin 2.3L 03/02/17 06:31: Glucometer 118H 03/02/17 11:48: Glucometer 95 Microbiology 02/28/17 Blood Culture - Preliminary, Resulted No growth 02/28/17 MRSA Screen - Final, Complete MRSA not isolated 02/28/17 Urine Culture - Preliminary, Resulted Escherichia Coli Proteus Mirabilis Probable Enterococcus Species Assessment/Plan Assessment/Plan Assess & Plan/Chief Complaint MS with UTI and sacral decubitus. schedule debridement . Clinical Quality Measures DVT/VTE Risk/Contraindication: Risk Factor Score Per Nursin RFS Level Per Nursing on Admit: 4+=Very High ANTHONY SHULTZ MD Mar 02, 2017 13:05
--- NOTE | 2017-03-02 14:13 | Cardiology Progress Note ---
Subjective Date Seen by Provider: Mar 02, 2017 Time Seen by Provider: 14:11 Subjective/Events-last exam patient is laying down in bed, lethargic, no chest pain was reported. No palpitation. Review of Systems General: No Chills, No Night Sweats, Fatigue, Malaise, No Appetite, No Other HEENT: No Head Aches, No Visual Changes, No Eye Pain, No Ear Pain, No Dysphasia , No Sinus Congestion, No Post Nasal Drip, No Sore Throat, No Other Pulmonary: Dyspnea, No Cough, No Pleuritic Chest Pain, No Other Cardiovascular: Edema, No: Chest Pain, Palpitations, Orthopnea, Paroxysmal Noc. Dyspnea, Lt Headedness, Other Objective-Cardiology Exam Last Set of Vital Signs Vital Signs 03/02/17 03/02/17 04:00 12:00 Temp 98.1 Pulse 110 Resp 23 B/P (MAP) 98/68 Pulse Ox 100 O2 Delivery Room Air Capillary Refill : Less Than 3 Seconds I&O Intake and Output 03/03/17 00:00 Intake Total 1800 ml Output Total 950 ml Balance 850 ml Intake Oral 50 ml IV Total 1750 ml Output Urine Total 950 ml # Bowel Movements 2 General: Alert, Oriented X3, Cooperative HEENT: Atraumatic, PERRLA Neck: Supple, No JVD, No Thyromegaly Lungs: Clear to Auscultation, Normal Air Movement Heart: Normal S1, Normal S2, Other (tachycardic, diffuse lower exudate edema) Abdomen: Normal Bowel Sounds, Soft Skin: No Rashes, No Significant Lesion Neuro: Normal Speech, Cranial Nerves 3-12 NL Psych/Mental Status: Mental Status NL, Mood NL Results Lab Laboratory Tests 03/01/17 16:21 03/02/17 04:25 03/02/17 13:07 A/P-Cardiology Admission Diagnosis Severe sepsis Hypotension Sinus tachycardia Decubitus ulcer Assessment/Plan Severe sepsis, secondary to cellulitis and decubitus ulcer, receiving IV fluids , monitored by primary care physician, managed by Dr. Chowdhury. Sinus tachycardia, secondary to sepsis, continue to monitor heart rate closely. Congestive heart failure with severe left ventricular systolic dysfunction, currently patient is hypotensive cannot tolerate beta blockers, LUANA inhibitor and/or ARB. Will need to be initiated on these medication once more clinically stable. Etiology of congestive heart failure is unknown. Could be ischemic in nature. Hypotension, secondary to sepsis, continue with IV fluid support, patient is having worsening pulmonary edema on chest x-ray today. Continue to monitor closely. Hypokalemia, hypomagnesemia, being replaced. Continue to monitor History of DVT maintained on Xarelto History of multiple sclerosis. Generalized weakness and limited exercise ability, limited mobility Decubitus ulcer Clinical Quality Measures DVT/VTE Risk/Contraindication: Risk Factor Score Per Nursin RFS Level Per Nursing on Admit: 4+=Very High PARAMJIT ONEILL MD Mar 02, 2017 14:13
[2017-03-02] MEDS: RIVAROXABAN 20 MG TABLET (XARELTO) PO SCH (16:41)
[2017-03-02] MEDS: NORTRIPTYLINE 25 MG (PAMELOR) CAP PO SCH (20:52)
[2017-03-02] MEDS: inSUlin DETERMIR 1 UNIT/0.01 ML (LEVEMIR) CHARGE PER UNIT SQ SCH (20:52)
[2017-03-02] MEDS: traZODone 50 MG (DESYREL) TAB PO SCH (20:53)
[2017-03-02] MEDS: ALPRAZolam 1 MG (XANAX) TAB PO PRN (20:53)
[2017-03-02] MEDS: HYDROcodone/APAP 10 MG/325 MG (LORTAB) TAB PO PRN (20:53)
[2017-03-03 02:29] LABS: ALANINE AMINOTRANSFERASE 7 U/L (0-55); ALBUMIN 2.3 GM/DL (3.2-4.5); ANION GAP 9 MMOL/L (5-14); ASPARTATE AMINO TRANSFERASE 9 U/L (5-34); BILIRUBIN,TOTAL 0.4 MG/DL (0.1-1.0); BLOOD UREA NITROGEN 5 MG/DL (7-18); BUN/CREATININE RATIO 11; CALCIUM 7.5 MG/DL (8.5-10.1); CARBON DIOXIDE 24 MMOL/L (21-32); CHLORIDE 104 MMOL/L (98-107); CREATININE SERUM 0.44 MG/DL (0.60-1.30); GFR ESTIMATED > 60; GLUCOSE 91 MG/DL (70-105); POTASSIUM 3.7 MMOL/L (3.6-5.0); SODIUM 137 MMOL/L (135-145); TOTAL PROTEIN 5.1 GM/DL (6.4-8.2)
[2017-03-03] MEDS: FERROUS SULF 325 MG (IRON) TAB PO SCH ×2 (05:06→17:26)
[2017-03-03] MEDS: FOLIC ACID 1 MG TAB PO SCH (05:07)
[2017-03-03] MEDS: PANTOPRAZOLE 40 MG (PROTONIX) TAB PO SCH (05:07)
[2017-03-03] MEDS: MULTIVIT W/MINERALS TAB (THERAGRAN M) PO SCH (05:07)
[2017-03-03] MEDS: CATHETER FLUSH 10 ML SYR IV SCH ×3 (05:23→21:22)
[2017-03-03] MEDS: MEROPENEM 500 MG/NS 100 ML IVPB IV SCH ×6 (05:23→17:26)
[2017-03-03] MEDS: inSUlin (REGULAR) HUMAN 1 UNIT/0.01 ML (CHARGE PER UNIT) SC SCH ×4 (06:09→20:27)
[2017-03-03 06:51] LABS: BASOPHILS # (AUTO) 0.1 10^3/uL (0.0-0.1); BASOPHILS % (AUTO) 1 % (0-10); EOSINOPHILS # (AUTO) 0.3 10^3/uL (0.0-0.3); EOSINOPHILS % (AUTO) 3 % (0-10); LYMPHOCYTES # (AUTO) 2.4 X 10^3 (1.0-4.0); LYMPHOCYTES % (AUTO) 23 % (12-44); MEAN CORPUSCULAR HEMOGLOBIN 27 PG (25-34); MEAN CORPUSCULAR HGB CONC 32 G/DL (32-36); MEAN CORPUSCULAR VOLUME 84 FL (80-99); MEAN PLATELET VOLUME 10.8 FL (7.4-10.4); MONOCYTES % (AUTO) 10 % (0-12); NEUTROPHILS # (AUTO) 6.8 X 10^3 (1.8-7.8); NEUTROPHILS % (AUTO) 64 % (42-75); PLATELET COUNT 350 10^3/uL (130-400); RED BLOOD COUNT 3.23 10^6/uL (4.35-5.85); RED CELL DISTRIBUTION WIDTH 14.7 % (10.0-14.5); WHITE BLOOD COUNT 10.6 10^3/uL (4.3-11.0)
[2017-03-03] MEDS: BACLOFEN 10 MG (LIORESAL) TAB PO SCH ×3 (07:54→21:21)
[2017-03-03] MEDS: GABAPENTIN 300 MG (NEURONTIN) CAP PO SCH ×3 (07:54→21:20)
[2017-03-03] MEDS: SENNA W/DOCUSATE (SENOKOT S) TABLET PO SCH ×2 (07:54→21:21)
[2017-03-03 08:00] VITALS: BP 95/68
[2017-03-03] MEDS ORDERED: TROUGH ORDER-PHARMACY XX NR (08:00)
--- NOTE | 2017-03-03 08:11 | Cardiology Progress Note ---
Subjective Date Seen by Provider: Mar 03, 2017 Time Seen by Provider: 08:05 Subjective/Events-last exam patient is laying down in bed, scheduled for debridement today, feeling better, more awake, denied any chest pain or shortness of breath Review of Systems General: No Chills, No Night Sweats, No Fatigue, No Malaise, No Appetite, No Other HEENT: No Head Aches, No Visual Changes, No Eye Pain, No Ear Pain, No Dysphasia , No Sinus Congestion, No Post Nasal Drip, No Sore Throat, No Other Pulmonary: No Dyspnea, No Cough, No Pleuritic Chest Pain, No Other Cardiovascular: No: Chest Pain, Palpitations, Orthopnea, Paroxysmal Noc. Dyspnea, Edema, Lt Headedness, Other Objective-Cardiology Exam Last Set of Vital Signs Vital Signs 03/02/17 03/03/17 20:09 01:00 Temp 97.6 Pulse 110 Resp 16 B/P (MAP) 95/67 Pulse Ox 95 O2 Delivery Room Air Capillary Refill : Less Than 3 Seconds I&O Intake and Output 03/04/17 00:00 Intake Total 100 ml Output Total 1450 ml Balance -1350 ml Intake Oral 0 ml IV Total 100 ml Output Urine Total 1450 ml # Bowel Movements 2 General: Alert, Oriented X3, Cooperative HEENT: Atraumatic, PERRLA Neck: Supple, No JVD, No Thyromegaly Lungs: Clear to Auscultation, Normal Air Movement Heart: Normal S1, Normal S2, Other (tachycardic, diffuse lower exudate edema) Abdomen: Normal Bowel Sounds, Soft Skin: No Rashes, No Significant Lesion Neuro: Normal Speech, Cranial Nerves 3-12 NL Psych/Mental Status: Mental Status NL, Mood NL Results Lab Laboratory Tests 03/02/17 13:07 03/03/17 02:00 03/03/17 06:40 A/P-Cardiology Admission Diagnosis Severe sepsis Hypotension Sinus tachycardia Decubitus ulcer Assessment/Plan Severe sepsis, secondary to cellulitis and decubitus ulcer, for debridement today, continue on antibiotics. Continue to monitor Sinus tachycardia, secondary to sepsis, continue to monitor heart rate closely. Congestive heart failure with severe left ventricular systolic dysfunction, currently patient is hypotensive cannot tolerate beta blockers, LUANA inhibitor and/or ARB. Will need to be initiated on these medication once more clinically stable. Etiology of congestive heart failure is unknown. Could be ischemic in nature. Hypotension, secondary to sepsis, continue with IV fluid support, continue to monitor closely Hypokalemia, hypomagnesemia, being replaced. Continue to monitor History of DVT maintained on Xarelto History of multiple sclerosis. Generalized weakness and limited exercise ability, limited mobility Decubitus ulcer Clinical Quality Measures DVT/VTE Risk/Contraindication: Risk Factor Score Per Nursin RFS Level Per Nursing on Admit: 4+=Very High PARAMJIT ONEILL MD Mar 03, 2017 08:11
[2017-03-03] MEDS: DAKIN'S 1/4 STRENGTH (0.125%) 473 ML BTL TOP SCH ×2 (10:34→21:22)
[2017-03-03] MEDS: ZINC OXIDE 16% OINT (BUTT PASTE) 113 GM TUBE TOP SCH ×3 (10:35→21:22)
--- NOTE | 2017-03-03 10:57 | Progress Note-Hospitalist ---
Progress Note HPI/CC on Admission The patient is a 51-year-old white female. She was brought to the emergency room from a crisis center. The various circumstances are quite unclear to us here. It is thought that she had been living independently and had been moved by the state to this center. It is also known that she has multiple sclerosis and has had pressure sores for some months. How this meets with the crisis Center capabilities is not at all clear. She apparently had seen some sort of wound care facility in [place]. The crisis center was concerned about her lethargy and malodorous urine. The patient was not able or willing to give much history. She is known to be diabetic and also to take Lasix and Xarelto. She reports that she uses a mechanical left to transfer and in recent weeks had a pinch or accident as a result of that and has developed a sore which is increasing in size and painful and malodorous over the coccyx area. She also has wounds on the right distal lateral fibula that are dry and as a result of pressure and also right heel sores on the posterior surface. Information obtained in the emergency room also suggested she has chronic lymphedema and an anticoagulant use the warfarin-induced coagulopathy and pulmonary embolus. She is said to have an ejection fraction of 15-20 percent but has no idea as to what the ailment might be. Progress Notes/Assess & Plan Date Seen 03/03/17 Time Seen by Provider: 10:00 Diagonsis/Assessment & Plan Chart Review: WBC 10.6 Hgb 8.6 No fever Vitals stable. Patient Interview: Pt is unsure when the debridement procedure is today. Pt confirms pain, but not more than usual Pt states she needs to have a BM, but can't. I informed the pt that I will find out when her surgery is and we will work on her BMs Physical exam stable. Pt on Meropenem and Vanc AFVSS, pleasant, chronically ill, flat affect RRR, CTAB diminished in bases No edema, limited ROM due to chronic weakness from MS bedbound Laboratory Tests 03/02/17 13:07 03/03/17 02:00 03/03/17 06:40 Assessment per Admit: 1.Severe sepsis. 2.urinary tract infection. 3.cellulitis right upper thigh. 4.candidiasis groin and intertriginous area bilateral breasts. 5.multiple sclerosis. 6.Diabetes 7. Chronic debility 8. Constipation/Impaction Plan: Debridement today - Dr. Olivera [place] upon DC Monitor pt Abx BM meds with SSE due to impaction Poor prognosis Scribed by Indu Walden under the direct supervision of Dr. Lee. JACOBO LEE DO Mar 03, 2017 10:57
--- NOTE | 2017-03-03 11:38 | Progress Note-Pre Operative ---
Pre-Operative Progress Note H&P Reviewed The H&P was reviewed, patient examined and no changes noted. Date Seen by Provider: Mar 03, 2017 Time Seen by Provider: 11:00 Date H&P Reviewed: Mar 03, 2017 Time H&P Reviewed: 11:00 Pre-Operative Diagnosis: stage 4 sacral decubitus ulcer ANTHONY SHULTZ MD Mar 03, 2017 11:38 am
[2017-03-03 12:00] VITALS: BP 102/70
[2017-03-03] MEDS ORDERED: LACTATED RINGERS 1,000 ML IV PRN (12:03)
[2017-03-03] MEDS ORDERED: proPOfol 200 MG/20 ML (DIPRIVAN) VIAL IV ONE ×2 (12:16→13:55)
[2017-03-03] MEDS ORDERED: MIDAZOLAM 2 MG/2 ML (VERSED) VIAL ONE (12:17)
[2017-03-03] MEDS ORDERED: LIDOCAINE/EPI 1%-1:200,000 (XYLOCAINE) 10 ML VIAL ONE (13:36)
[2017-03-03] MEDS ORDERED: LIDOCAINE 1% INJ 20 ML (XYLOCAINE) VIAL ONE (13:36)
--- NOTE | 2017-03-03 14:26 | Progress Note-Post Operative ---
Post-Operative Progess Note Surgeon (s)/Control Equipment Electrician (s) Surgeon ANTHONY SHULTZ MD Control Equipment Electrician: keisha jennings APRN Pre-Operative Diagnosis stage 4 sacral decubitus ulcer Post-Operative Diagnosis same Procedure & Operative Findings Date of Procedure 03/03/17 Procedure Performed/Findings debridement skin, subcutaneous, muscle (4x5cm). Anesthesia Type MAC with local Estimated Blood Loss Estimated blood loss (mL): minimal Specimens/Packing Specimens Removed stage 4 decubitus ulcer ANTHONY SHULTZ MD Mar 03, 2017 2:26 pm
[2017-03-03] MEDS: HYDROcodone/APAP 10 MG/325 MG (LORTAB) TAB PO PRN ×2 (15:05→22:20)
[2017-03-03 16:38] VITALS: BP 98/71
[2017-03-03] MEDS: RIVAROXABAN 20 MG TABLET (XARELTO) PO SCH (17:26)
--- NOTE | 2017-03-03 17:36 | OPERATIVE REPORT ---
DATE OF SERVICE: 03/03/2017 PREOPERATIVE DIAGNOSIS: Stage IV sacral decubitus ulcer with necrotic debris. POSTOPERATIVE DIAGNOSIS: Stage IV sacral decubitus ulcer with necrotic debris, the dimensions of the lesion approximately 5 x 4 cm in size. PROCEDURE: Debridement of stage IV decubitus ulcer encompassing skin, subcutaneous tissue and muscle. SURGEON: Anthony Shultz M.D. CAMPUS REP: Aaron العراقي APRN. ANESTHESIA: Monitored anesthesia care with local. ESTIMATED BLOOD LOSS: Minimal. FINDINGS: Stage IV decubitus ulcer with exposed fascia to the coccyx bone. DISPOSITION: The patient tolerated the procedure well. INDICATIONS: The patient is a 51-year-old female who was brought in by EMS to the [facility] located in [place] due to lethargy and suspected urinary tract infection. She has a history of multiple sclerosis diagnosed at age 30. She reports that this initially was slowly progressive; however, has been significant in the past 10 years. She does not have any function of her lower extremities as well as lower torso and has moderate neurologic motor activity of her upper extremities and appears to have normal mentation. She does have a history of noncompliance as well as urinary tract infections. She also has had previous decubitus ulcers including the sacral region as well as the right lower extremity. Upon further examination, she was found to have a recurrent sacral decubitus ulcer with necrotic debris with overlying redness, erythema and also encompassing the lateral hip and thigh. This was stage IV sacral decubitus ulcer approximately 5 x 4 cm in size. DESCRIPTION OF PROCEDURE: The patient was brought to the operating room, laid in the left lateral decubitus position and given monitored anesthesia care anesthesia. The perineum and sacrum were then prepped and draped in standard surgical fashion. 1% lidocaine with epinephrine was then used to anesthetize the overlying skin to the lesion to the level of the sacral bone. We then proceeded with systematic debridement including the affected rim of skin, subcutaneous tissue, muscle all the way down to the fascia of the sacral bone. This was done using a 15 blade. Good hemostasis was achieved using electrocautery as well as pressure. The specimen was sent to pathology. The wound cavity was then packed with iodoform gauze followed by 4 x 4 gauze followed by ABD pad. The patient tolerated the procedure well. We will continue with current therapy that she is receiving and continue with wet to dry dressing changes on a b.i.d. basis. She will also be turned over to our wound care for care of this wound as well as the 3 decubitus ulcers of the right lower extremity. Job ID: [id number] DocumentID: [id number] Dictated Date: 03/03/2017 14:35:05 Returns Clerk Date: 03/03/2017 17:35:22 Dictated By: ANTHONY SHULTZ MD
[2017-03-03 20:00] VITALS: BP 100/66
[2017-03-03] MEDS: traZODone 50 MG (DESYREL) TAB PO SCH (21:20)
[2017-03-03] MEDS: NORTRIPTYLINE 25 MG (PAMELOR) CAP PO SCH (21:20)
[2017-03-03] MEDS: inSUlin DETERMIR 1 UNIT/0.01 ML (LEVEMIR) CHARGE PER UNIT SQ SCH (21:21)
[2017-03-04] MEDS: MEROPENEM 500 MG/NS 100 ML IVPB IV SCH ×8 (00:15→18:36)
[2017-03-04] MEDS: ALPRAZolam 1 MG (XANAX) TAB PO PRN (00:16)
[2017-03-04 04:47] LABS: BASOPHILS # (AUTO) 0.1 10^3/uL (0.0-0.1); BASOPHILS % (AUTO) 1 % (0-10); EOSINOPHILS # (AUTO) 0.4 10^3/uL (0.0-0.3); EOSINOPHILS % (AUTO) 5 % (0-10); LYMPHOCYTES # (AUTO) 3.2 X 10^3 (1.0-4.0); LYMPHOCYTES % (AUTO) 35 % (12-44); MEAN CORPUSCULAR HEMOGLOBIN 26 PG (25-34); MEAN CORPUSCULAR HGB CONC 31 G/DL (32-36); MEAN CORPUSCULAR VOLUME 84 FL (80-99); MEAN PLATELET VOLUME 10.3 FL (7.4-10.4); MONOCYTES # (AUTO) 0.9 X 10^3 (0.0-1.0); MONOCYTES % (AUTO) 10 % (0-12); NEUTROPHILS # (AUTO) 4.5 X 10^3 (1.8-7.8); NEUTROPHILS % (AUTO) 50 % (42-75); PLATELET COUNT 329 10^3/uL (130-400); RED BLOOD COUNT 3.04 10^6/uL (4.35-5.85); RED CELL DISTRIBUTION WIDTH 14.5 % (10.0-14.5)
[2017-03-04 05:32] LABS: ALANINE AMINOTRANSFERASE 6 U/L (0-55); ALBUMIN 2.1 GM/DL (3.2-4.5); ANION GAP 7 MMOL/L (5-14); ASPARTATE AMINO TRANSFERASE 13 U/L (5-34); BILIRUBIN,TOTAL 0.3 MG/DL (0.1-1.0); BLOOD UREA NITROGEN 4 MG/DL (7-18); BUN/CREATININE RATIO 9; CALCIUM 7.6 MG/DL (8.5-10.1); CARBON DIOXIDE 30 MMOL/L (21-32); CHLORIDE 104 MMOL/L (98-107); CREATININE SERUM 0.43 MG/DL (0.60-1.30); GFR ESTIMATED > 60; POTASSIUM 2.8 MMOL/L (3.6-5.0); SODIUM 141 MMOL/L (135-145); TOTAL PROTEIN 4.9 GM/DL (6.4-8.2)
[2017-03-04] MEDS: inSUlin (REGULAR) HUMAN 1 UNIT/0.01 ML (CHARGE PER UNIT) SC SCH ×4 (05:33→20:42)
[2017-03-04 05:46] LABS: GLUCOSE 50 MG/DL (70-105)
[2017-03-04] MEDS: MULTIVIT W/MINERALS TAB (THERAGRAN M) PO SCH (06:54)
[2017-03-04] MEDS: PANTOPRAZOLE 40 MG (PROTONIX) TAB PO SCH (06:54)
[2017-03-04] MEDS: FOLIC ACID 1 MG TAB PO SCH (06:55)
[2017-03-04] MEDS: FERROUS SULF 325 MG (IRON) TAB PO SCH ×2 (06:55→17:36)
[2017-03-04] MEDS: CATHETER FLUSH 10 ML SYR IV SCH ×3 (06:55→21:25)
[2017-03-04 08:00] VITALS: BP 93/62
[2017-03-04] MEDS ORDERED: TROUGH ORDER-PHARMACY XX NR (08:00)
[2017-03-04] MEDS: BACLOFEN 10 MG (LIORESAL) TAB PO SCH ×3 (09:04→21:23)
[2017-03-04] MEDS: GABAPENTIN 300 MG (NEURONTIN) CAP PO SCH ×3 (09:04→21:24)
[2017-03-04] MEDS: SENNA W/DOCUSATE (SENOKOT S) TABLET PO SCH ×2 (09:04→21:23)
[2017-03-04] MEDS: HYDROcodone/APAP 10 MG/325 MG (LORTAB) TAB PO PRN ×2 (09:10→21:23)
--- NOTE | 2017-03-04 10:23 | Anesthesia-General Post-Op ---
General Patient Condition Mental Status/LOC: Same as Preop Cardiovascular: Satisfactory Nausea/Vomiting: Absent Respiratory: Satisfactory Pain: Controlled Complications: Absent Post Op Complications Complications None Follow Up Care/Instructions Patient Instructions None needed. Anesthesia/Patient Condition Patient Condition Patient is doing well, no complaints, stable vital signs, no apparent adverse anesthesia problems. No complications reported per nursing. SHADIA CARDENAS CRNA Mar 04, 2017 10:23
--- NOTE | 2017-03-04 11:24 | Progress Note-Hospitalist ---
Progress Note HPI/CC on Admission The patient is a 51-year-old white female. She was brought to the emergency room from a crisis center. The various circumstances are quite unclear to us here. It is thought that she had been living independently and had been moved by the state to this center. It is also known that she has multiple sclerosis and has had pressure sores for some months. How this meets with the crisis Center capabilities is not at all clear. She apparently had seen some sort of wound care facility in [place]. The crisis center was concerned about her lethargy and malodorous urine. The patient was not able or willing to give much history. She is known to be diabetic and also to take Lasix and Xarelto. She reports that she uses a mechanical left to transfer and in recent weeks had a pinch or accident as a result of that and has developed a sore which is increasing in size and painful and malodorous over the coccyx area. She also has wounds on the right distal lateral fibula that are dry and as a result of pressure and also right heel sores on the posterior surface. Information obtained in the emergency room also suggested she has chronic lymphedema and an anticoagulant use the warfarin-induced coagulopathy and pulmonary embolus. She is said to have an ejection fraction of 15-20 percent but has no idea as to what the ailment might be. Progress Notes/Assess & Plan Date Seen 03/04/17 Time Seen by Provider: 11:00 Diagonsis/Assessment & Plan Chart Review: No fever Vitals stable WBC normal 9.0 Hgb 8.0 Patient Interview: Pt states she is doing okay, except her buttocks hurt. Pt confirms having pain meds. Pt's labs were discussed and look good Pt states she will be going to [facility] until 05/22, then she will move to the [facility] Physical exam stable. Pt states she is not interested in [facility]. Pt on Meropenem and Vanc AFVSS, pleasant, chronically ill, flat affect RRR, CTAB diminished in bases No edema, limited ROM due to chronic weakness from MS bedbound Laboratory Tests 03/04/17 04:30 Assessment per Admit: 1.Severe sepsis. 2.urinary tract infection. 3.cellulitis right upper thigh. 4.candidiasis groin and intertriginous area bilateral breasts. 5.multiple sclerosis. 6.Diabetes 7. Chronic debility 8. Constipation/Impaction resolved after SSE 9. Hypokalemia Plan: Debridement is appreciated - Dr. Olivera Dispo pending since [facility] could not meet her needs Monitor pt Abx Poor prognosis DC to [facility] once arranged? Potassium supp Scribed by Indu Walden under the direct supervision of Dr. Mathias. JACOBO MATHIAS DO Mar 04, 2017 11:24
[2017-03-04 12:00] VITALS: BP 106/62
[2017-03-04] MEDS: VANCOMYCIN 1500 MG/NS 500 ML IVPB IV SCH ×4 (12:05→12:09)
[2017-03-04] MEDS: POTASSIUM CL 10MEQ/50ML IVPB 50 ML IV SCH ×3 (13:05→15:29)
[2017-03-04] MEDS: DAKIN'S 1/4 STRENGTH (0.125%) 473 ML BTL TOP SCH ×2 (14:16→21:24)
[2017-03-04] MEDS: ZINC OXIDE 16% OINT (BUTT PASTE) 113 GM TUBE TOP SCH ×3 (14:16→21:24)
[2017-03-04] MEDS: fentaNYL INJECTION 100 MCG/2 ML AMP IV PRN (14:29)
[2017-03-04] MEDS: LORATADINE (CLARITIN) 10 MG TAB PO SCH (14:30)
--- NOTE | 2017-03-04 15:46 | Cardiology Progress Note ---
Cardiology SOAP Progress Note Subjective: No significant cardiac complaints Objective: I&O/Vital Signs Vital Sign - Last 12Hours 03/04/17 03/04/17 03/04/17 03/04/17 07:00 08:00 09:10 09:50 Temp 96.2 96.2 96.2 Pulse 103 104 Resp 20 B/P (MAP) 93/62 (72) Pulse Ox 100 O2 Delivery Room Air 03/04/17 03/04/17 03/04/17 12:00 13:00 15:00 Temp 98.9 98.9 Pulse 112 110 Resp 20 B/P (MAP) 106/62 (77) Pulse Ox 99 O2 Delivery Room Air Intake and Output 03/05/17 00:00 Intake Total 2020 ml Output Total 900 ml Balance 1120 ml Weight (Pounds): 201 Weight (Ounces): 4.0 Weight (Calculated Kilograms): 91.474154 Constitutional: No appears stated age, No AAO x 3, No apparent distress, No PERRL, No well-developed, No well-nourished, No other Respiratory: No accessory muscle use, No respiratory distress, No chest tender , No chest expansion is symmetric, No chest is bilaterally symmetric, No lungs clear to percussion, No lungs clear to auscultation, No crackles, No rhonchi, No rales, No stridor, No wheezing, No pleural rub, No other Cardiovascular: No regular rate-rhythm, No irregularly irregular, No extra beats, No parasternal heave is noted, No JVD, No edema, No bradycardia, No tachycardia, No point of maximal impulse, No cardiac thrills are palpable, No S1 and S2, No gallop/S3, No gallop/S4, No diastolic murmur, No systolic murmur, No friction rub, No click, No other Gastrointestional: No tender, No soft, No round, No distended, No pulsatile mass, No organomegaly, No guarding, No rebound, No tenderness, No hernia, No mass, No audible bowel sounds, No abnormal bowel sounds, No abdominal bruits, No spleenomegaly, No other Extremities: No normal range of motion, No non-tender, No normal inspection, No pedal edema, No calf tenderness, No normal capillary refill, No pelvis stable , No calf tenderness, No inflammation, No pedal edema, No slow capillary refill , No swelling, No other, No abrasion, No clubbing, No cyanosis, No ecchymosis, No laceration, No no lower extremity edema bilateral, No significant edema, No tenderness, No wound Neurologic/Psychiatric: No arc welder II-XII nml as tested, No no motor/sensory deficits, No alert, No normal mood/affect, No oriented x 3, No abnormal cerebellar tests, No abnormal arc welder II-XII, No abnormal gait, No aphasia, No EOM palsy, No facial droop, No motor weakness, No sensory deficit, No depressed affect, No disoriented x 3, No other, No grossly intact, No power is 5/5 both on sides Skin: normal color, warm/dry, ulcerations (pressure ulcer on the sacrum, left heel and candidiasis under her bilateral breasts left more than right.), other ( erythema and edema to right hip and buttock) Results/Procedures: Labs Laboratory Tests 03/03/17 15:48: Glucometer 98 03/03/17 20:16: Glucometer 168H 03/04/17 04:30: White Blood Count 9.0, Red Blood Count 3.04L, Hemoglobin 8.0L, Hematocrit 26L, Mean Corpuscular Volume 84, Mean Corpuscular Hemoglobin 26, Mean Corpuscular Hemoglobin Concent 31L, Red Cell Distribution Width 14.5, Platelet Count 329, Mean Platelet Volume 10.3, Neutrophils (%) (Auto) 50, Lymphocytes (%) (Auto) 35 , Monocytes (%) (Auto) 10, Eosinophils (%) (Auto) 5, Basophils (%) (Auto) 1, Neutrophils # (Auto) 4.5, Lymphocytes # (Auto) 3.2, Monocytes # (Auto) 0.9, Eosinophils # (Auto) 0.4H, Basophils # (Auto) 0.1, Sodium Level 141, Potassium Level 2.8L, Chloride Level 104, Carbon Dioxide Level 30, Anion Gap 7, Blood Urea Nitrogen 4L, Creatinine 0.43L, Estimat Glomerular Filtration Rate > 60, BUN /Creatinine Ratio 9, Glucose Level 50*L, Calcium Level 7.6L, Total Bilirubin 0.3 , Aspartate Amino Transf (AST/SGOT) 13, Alanine Aminotransferase (ALT/SGPT) 6, Alkaline Phosphatase 74, Total Protein 4.9L, Albumin 2.1L 03/04/17 05:31: Glucometer 59*L 03/04/17 06:16: Glucometer 56*L 03/04/17 06:41: Glucometer 77 03/04/17 07:09: Glucometer 75 03/04/17 08:25: Vancomycin Level Trough 13.0 03/04/17 11:13: Glucometer 122H Microbiology 02/28/17 Blood Culture - Preliminary, Resulted No growth 02/28/17 MRSA Screen - Final, Complete MRSA not isolated 02/28/17 Urine Culture - Final, Complete Escherichia Coli Proteus Mirabilis Enterococcus Faecalis A/P: Assessment/Dx: Admission Diagnosis Severe sepsis Hypotension Sinus tachycardia Decubitus ulcer Plan: Severe sepsis, secondary to cellulitis and decubitus ulcer, for debridement today, continue on antibiotics. Continue to monitor Sinus tachycardia, secondary to sepsis, continue to monitor heart rate closely. Congestive heart failure with severe left ventricular systolic dysfunction, currently patient is hypotensive cannot tolerate beta blockers, LUANA inhibitor and/or ARB. Will need to be initiated on these medication once more clinically stable. Etiology of congestive heart failure is unknown. Could be ischemic in nature. Hypotension, secondary to sepsis, continue with IV fluid support, continue to monitor closely Hypokalemia, hypomagnesemia, being replaced. Continue to monitor History of DVT maintained on Xarelto History of multiple sclerosis. Generalized weakness and limited exercise ability, limited mobility Decubitus ulcer Thank you for your consultation. Please call me if you have any questions. Ivan Stephenson MD, FACP, FACC, FSCAI, FHRS, CCDS Interventional Cardiology Cardiac Electrophysiology Vascular Medicine and Endovascular Interventions Aleena STEPHENSON MD Mar 04, 2017 3:46 pm
[2017-03-04 16:00] VITALS: BP 100/63
[2017-03-04] MEDS: RIVAROXABAN 20 MG TABLET (XARELTO) PO SCH (17:36)
[2017-03-04] MEDS: NORTRIPTYLINE 25 MG (PAMELOR) CAP PO SCH (21:23)
[2017-03-04] MEDS: KCL 20 MEQ TAB (K-DUR) PO SCH (21:23)
[2017-03-04] MEDS: traZODone 50 MG (DESYREL) TAB PO SCH (21:24)
[2017-03-04] MEDS: inSUlin DETERMIR 1 UNIT/0.01 ML (LEVEMIR) CHARGE PER UNIT SQ SCH (21:24)
[2017-03-05] VITALS: BP_SYST 100; BP_SYST 96; BP_DIAS 63; BP_DIAS 64
[2017-03-05] MEDS: MEROPENEM 500 MG/NS 100 ML IVPB IV SCH ×8 (00:08→18:05)
[2017-03-05] MEDS: ALPRAZolam 1 MG (XANAX) TAB PO PRN ×2 (00:09→21:29)
[2017-03-05 04:36] LABS: BASOPHILS # (AUTO) 0.1 10^3/uL (0.0-0.1); BASOPHILS % (AUTO) 1 % (0-10); EOSINOPHILS # (AUTO) 0.6 10^3/uL (0.0-0.3); EOSINOPHILS % (AUTO) 6 % (0-10); LYMPHOCYTES # (AUTO) 3.7 X 10^3 (1.0-4.0); LYMPHOCYTES % (AUTO) 37 % (12-44); MEAN CORPUSCULAR HEMOGLOBIN 27 PG (25-34); MEAN CORPUSCULAR HGB CONC 32 G/DL (32-36); MEAN CORPUSCULAR VOLUME 84 FL (80-99); MEAN PLATELET VOLUME 10.2 FL (7.4-10.4); MONOCYTES % (AUTO) 10 % (0-12); NEUTROPHILS # (AUTO) 4.6 X 10^3 (1.8-7.8); NEUTROPHILS % (AUTO) 46 % (42-75); PLATELET COUNT 386 10^3/uL (130-400); RED BLOOD COUNT 3.05 10^6/uL (4.35-5.85); RED CELL DISTRIBUTION WIDTH 14.8 % (10.0-14.5)
[2017-03-05 04:55] LABS: ALANINE AMINOTRANSFERASE 6 U/L (0-55); ALBUMIN 2.2 GM/DL (3.2-4.5); ANION GAP 7 MMOL/L (5-14); ASPARTATE AMINO TRANSFERASE 8 U/L (5-34); BILIRUBIN,TOTAL 0.3 MG/DL (0.1-1.0); BLOOD UREA NITROGEN 4 MG/DL (7-18); BUN/CREATININE RATIO 9; CALCIUM 7.5 MG/DL (8.5-10.1); CARBON DIOXIDE 30 MMOL/L (21-32); CHLORIDE 106 MMOL/L (98-107); CREATININE SERUM 0.44 MG/DL (0.60-1.30); GFR ESTIMATED > 60; GLUCOSE 76 MG/DL (70-105); POTASSIUM 3.6 MMOL/L (3.6-5.0); SODIUM 143 MMOL/L (135-145)
[2017-03-05] MEDS: inSUlin (REGULAR) HUMAN 1 UNIT/0.01 ML (CHARGE PER UNIT) SC SCH ×4 (05:10→21:14)
[2017-03-05] MEDS: MULTIVIT W/MINERALS TAB (THERAGRAN M) PO SCH (06:05)
[2017-03-05] MEDS: PANTOPRAZOLE 40 MG (PROTONIX) TAB PO SCH (06:05)
[2017-03-05] MEDS: FERROUS SULF 325 MG (IRON) TAB PO SCH ×2 (06:05→17:14)
[2017-03-05] MEDS: FOLIC ACID 1 MG TAB PO SCH (06:05)
[2017-03-05] MEDS: CATHETER FLUSH 10 ML SYR IV SCH ×3 (06:05→21:25)
[2017-03-05 08:00] VITALS: BP 85/52
[2017-03-05] MEDS: LORATADINE (CLARITIN) 10 MG TAB PO SCH (08:49)
[2017-03-05] MEDS: ZINC OXIDE 16% OINT (BUTT PASTE) 113 GM TUBE TOP SCH ×3 (08:49→21:24)
[2017-03-05] MEDS: KCL 20 MEQ TAB (K-DUR) PO SCH ×2 (08:49→21:24)
[2017-03-05] MEDS: SENNA W/DOCUSATE (SENOKOT S) TABLET PO SCH ×2 (08:49→21:24)
[2017-03-05] MEDS: HYDROcodone/APAP 10 MG/325 MG (LORTAB) TAB PO PRN ×3 (08:49→18:50)
[2017-03-05] MEDS: BACLOFEN 10 MG (LIORESAL) TAB PO SCH ×3 (08:49→21:24)
[2017-03-05] MEDS: GABAPENTIN 300 MG (NEURONTIN) CAP PO SCH ×3 (08:49→21:24)
[2017-03-05] MEDS: DAKIN'S 1/4 STRENGTH (0.125%) 473 ML BTL TOP SCH ×2 (11:40→21:25)
--- NOTE | 2017-03-05 11:51 | Cardiology Progress Note ---
Cardiology SOAP Progress Note Subjective: Improved cardiac symptoms. Objective: I&O/Vital Signs Vital Sign - Last 12Hours 03/05/17 03/05/17 00:00 01:00 Temp 97.7 Pulse 105 107 Resp 20 B/P (MAP) 96/64 (75) Pulse Ox 96 O2 Delivery Room Air Weight (Pounds): 205 Weight (Ounces): 6.0 Weight (Calculated Kilograms): 93.654757 Constitutional: No appears stated age, No AAO x 3, No apparent distress, No PERRL, No well-developed, No well-nourished, No other Respiratory: No accessory muscle use, No respiratory distress, No chest tender , No chest expansion is symmetric, No chest is bilaterally symmetric, No lungs clear to percussion, No lungs clear to auscultation, No crackles, No rhonchi, No rales, No stridor, No wheezing, No pleural rub, No other Cardiovascular: No regular rate-rhythm, No irregularly irregular, No extra beats, No parasternal heave is noted, No JVD, No edema, No bradycardia, No tachycardia, No point of maximal impulse, No cardiac thrills are palpable, No S1 and S2, No gallop/S3, No gallop/S4, No diastolic murmur, No systolic murmur, No friction rub, No click, No other Gastrointestional: No tender, No soft, No round, No distended, No pulsatile mass, No organomegaly, No guarding, No rebound, No tenderness, No hernia, No mass, No audible bowel sounds, No abnormal bowel sounds, No abdominal bruits, No spleenomegaly, No other Extremities: No normal range of motion, No non-tender, No normal inspection, No pedal edema, No calf tenderness, No normal capillary refill, No pelvis stable , No calf tenderness, No inflammation, No pedal edema, No slow capillary refill , No swelling, No other, No abrasion, No clubbing, No cyanosis, No ecchymosis, No laceration, No no lower extremity edema bilateral, No significant edema, No tenderness, No wound Neurologic/Psychiatric: No tile ditcher II-XII nml as tested, No no motor/sensory deficits, No alert, No normal mood/affect, No oriented x 3, No abnormal cerebellar tests, No abnormal tile ditcher II-XII, No abnormal gait, No aphasia, No EOM palsy, No facial droop, No motor weakness, No sensory deficit, No depressed affect, No disoriented x 3, No other, No grossly intact, No power is 5/5 both on sides Skin: normal color, warm/dry, ulcerations (pressure ulcer on the sacrum, left heel and candidiasis under her bilateral breasts left more than right.), other ( erythema and edema to right hip and buttock) Results/Procedures: Labs Laboratory Tests 03/04/17 15:37: Glucometer 135H 03/04/17 20:38: Glucometer 176H 03/05/17 04:20: White Blood Count 10.0, Red Blood Count 3.05L, Hemoglobin 8.1L, Hematocrit 26L, Mean Corpuscular Volume 84, Mean Corpuscular Hemoglobin 27, Mean Corpuscular Hemoglobin Concent 32, Red Cell Distribution Width 14.8H, Platelet Count 386, Mean Platelet Volume 10.2, Neutrophils (%) (Auto) 46, Lymphocytes (%) (Auto) 37 , Monocytes (%) (Auto) 10, Eosinophils (%) (Auto) 6, Basophils (%) (Auto) 1, Neutrophils # (Auto) 4.6, Lymphocytes # (Auto) 3.7, Monocytes # (Auto) 1.0, Eosinophils # (Auto) 0.6H, Basophils # (Auto) 0.1, Sodium Level 143, Potassium Level 3.6, Chloride Level 106, Carbon Dioxide Level 30, Anion Gap 7, Blood Urea Nitrogen 4L, Creatinine 0.44L, Estimat Glomerular Filtration Rate > 60, BUN/ Creatinine Ratio 9, Glucose Level 76, Calcium Level 7.5L, Total Bilirubin 0.3, Aspartate Amino Transf (AST/SGOT) 8, Alanine Aminotransferase (ALT/SGPT) 6, Alkaline Phosphatase 71, Total Protein 5.0L, Albumin 2.2L 03/05/17 11:08: Glucometer 116H Microbiology 02/28/17 Blood Culture - Preliminary, Resulted No growth 02/28/17 MRSA Screen - Final, Complete MRSA not isolated 02/28/17 Urine Culture - Final, Complete Escherichia Coli Proteus Mirabilis Enterococcus Faecalis A/P: Assessment/Dx: Severe sepsis Hypotension Sinus tachycardia Decubitus ulcer Plan: Severe sepsis, secondary to cellulitis and decubitus ulcer, for debridement today, continue on antibiotics. Continue to monitor Sinus tachycardia, secondary to sepsis, continue to monitor heart rate closely. Congestive heart failure with severe left ventricular systolic dysfunction, currently patient is hypotensive cannot tolerate beta blockers, LUANA inhibitor and/or ARB. Will need to be initiated on these medication once more clinically stable. Etiology of congestive heart failure is unknown. Could be ischemic in nature. Hypotension, secondary to sepsis, continue with IV fluid support, continue to monitor closely Hypokalemia, hypomagnesemia, being replaced. Continue to monitor History of DVT maintained on Xarelto History of multiple sclerosis. Generalized weakness and limited exercise ability, limited mobility Decubitus ulcer Thank you for your consultation. Please call me if you have any questions. Ivan Stephenson MD, FACP, FACC, FSCAI, FHRS, CCDS Interventional Cardiology Cardiac Electrophysiology Vascular Medicine and Endovascular Interventions Aleena STEPHENSON MD Mar 05, 2017 11:51 am
[2017-03-05 12:00] VITALS: BP 97/61
--- NOTE | 2017-03-05 12:41 | Progress Note-Hospitalist ---
Progress Note HPI/CC on Admission The patient is a 51-year-old white female. She was brought to the emergency room from a crisis center. The various circumstances are quite unclear to us here. It is thought that she had been living independently and had been moved by the state to this center. It is also known that she has multiple sclerosis and has had pressure sores for some months. How this meets with the crisis Center capabilities is not at all clear. She apparently had seen some sort of wound care facility in [place]. The crisis center was concerned about her lethargy and malodorous urine. The patient was not able or willing to give much history. She is known to be diabetic and also to take Lasix and Xarelto. She reports that she uses a mechanical left to transfer and in recent weeks had a pinch or accident as a result of that and has developed a sore which is increasing in size and painful and malodorous over the coccyx area. She also has wounds on the right distal lateral fibula that are dry and as a result of pressure and also right heel sores on the posterior surface. Information obtained in the emergency room also suggested she has chronic lymphedema and an anticoagulant use the warfarin-induced coagulopathy and pulmonary embolus. She is said to have an ejection fraction of 15-20 percent but has no idea as to what the ailment might be. Progress Notes/Assess & Plan Date Seen 03/05/17 Time Seen by Provider: 11:45 Diagonsis/Assessment & Plan Pt doing well No pain is reported except decubitus ulcer BCx appears to have + results and noted she is covered with abx BM are doing well since SSE cleared the impaction AFVSS, pleasant, chronically ill, flat affect RRR, CTAB diminished in bases No edema, limited ROM due to chronic weakness from MS bedbound Laboratory Tests 03/05/17 04:20 Assessment per Admit: 1.Severe sepsis. 2.urinary tract infection. 3.cellulitis right upper thigh. 4.candidiasis groin and intertriginous area bilateral breasts. 5.multiple sclerosis. 6.Diabetes 7. Chronic debility 8. Constipation/Impaction resolved after SSE 9. Hypokalemia improved on supplement 10. BCx + GN and GP Plan: Debridement is appreciated - Dr. Olivera Dispo pending since [facility] could not meet her needs Monitor pt Abx Poor prognosis DC to [facility] once arranged? Potassium supp MATHIAS,JACOBO DO Mar 05, 2017 12:41
[2017-03-05] MEDS: fentaNYL INJECTION 100 MCG/2 ML AMP IV PRN (14:35)
[2017-03-05] MEDS: RIVAROXABAN 20 MG TABLET (XARELTO) PO SCH (17:14)
[2017-03-05] MEDS: NORTRIPTYLINE 25 MG (PAMELOR) CAP PO SCH (21:24)
[2017-03-05] MEDS: inSUlin DETERMIR 1 UNIT/0.01 ML (LEVEMIR) CHARGE PER UNIT SQ SCH (21:24)
[2017-03-05] MEDS: traZODone 50 MG (DESYREL) TAB PO SCH (21:24)
[2017-03-06] MEDS: MEROPENEM 500 MG/NS 100 ML IVPB IV SCH ×10 (00:19→23:43)
[2017-03-06 04:53] LABS: BASOPHILS # (AUTO) 0.1 10^3/uL (0.0-0.1); BASOPHILS % (AUTO) 1 % (0-10); EOSINOPHILS # (AUTO) 0.5 10^3/uL (0.0-0.3); EOSINOPHILS % (AUTO) 5 % (0-10); LYMPHOCYTES # (AUTO) 3.5 X 10^3 (1.0-4.0); LYMPHOCYTES % (AUTO) 36 % (12-44); MEAN CORPUSCULAR HEMOGLOBIN 26 PG (25-34); MEAN CORPUSCULAR HGB CONC 31 G/DL (32-36); MEAN CORPUSCULAR VOLUME 84 FL (80-99); MEAN PLATELET VOLUME 10.4 FL (7.4-10.4); MONOCYTES # (AUTO) 0.8 X 10^3 (0.0-1.0); MONOCYTES % (AUTO) 9 % (0-12); NEUTROPHILS # (AUTO) 4.8 X 10^3 (1.8-7.8); NEUTROPHILS % (AUTO) 50 % (42-75); PLATELET COUNT 423 10^3/uL (130-400); RED BLOOD COUNT 3.16 10^6/uL (4.35-5.85); RED CELL DISTRIBUTION WIDTH 14.9 % (10.0-14.5); WHITE BLOOD COUNT 9.6 10^3/uL (4.3-11.0)
[2017-03-06 05:13] LABS: ALANINE AMINOTRANSFERASE 6 U/L (0-55); ALBUMIN 2.2 GM/DL (3.2-4.5); ANION GAP 5 MMOL/L (5-14); ASPARTATE AMINO TRANSFERASE 13 U/L (5-34); BILIRUBIN,TOTAL 0.3 MG/DL (0.1-1.0); BLOOD UREA NITROGEN 6 MG/DL (7-18); BUN/CREATININE RATIO 13; CALCIUM 7.9 MG/DL (8.5-10.1); CARBON DIOXIDE 31 MMOL/L (21-32); CHLORIDE 103 MMOL/L (98-107); CREATININE SERUM 0.45 MG/DL (0.60-1.30); GFR ESTIMATED > 60; GLUCOSE 88 MG/DL (70-105); POTASSIUM 4.1 MMOL/L (3.6-5.0); SODIUM 139 MMOL/L (135-145); TOTAL PROTEIN 5.3 GM/DL (6.4-8.2)
[2017-03-06] MEDS: inSUlin (REGULAR) HUMAN 1 UNIT/0.01 ML (CHARGE PER UNIT) SC SCH ×4 (05:19→20:30)
[2017-03-06 05:36] VITALS: BP 97/65
[2017-03-06] MEDS: CATHETER FLUSH 10 ML SYR IV SCH ×3 (06:01→22:44)
[2017-03-06] MEDS: PANTOPRAZOLE 40 MG (PROTONIX) TAB PO SCH (06:01)
[2017-03-06] MEDS: FOLIC ACID 1 MG TAB PO SCH (06:01)
[2017-03-06] MEDS: MULTIVIT W/MINERALS TAB (THERAGRAN M) PO SCH (06:01)
[2017-03-06] MEDS: FERROUS SULF 325 MG (IRON) TAB PO SCH ×2 (06:01→16:39)
[2017-03-06] MEDS ORDERED: TROUGH ORDER-PHARMACY XX NR (08:30)
[2017-03-06] MEDS: BACLOFEN 10 MG (LIORESAL) TAB PO SCH ×3 (09:00→22:42)
[2017-03-06] MEDS: KCL 20 MEQ TAB (K-DUR) PO SCH (09:00)
[2017-03-06] MEDS: LORATADINE (CLARITIN) 10 MG TAB PO SCH (09:00)
[2017-03-06] MEDS: SENNA W/DOCUSATE (SENOKOT S) TABLET PO SCH ×2 (09:00→22:42)
[2017-03-06] MEDS: GABAPENTIN 300 MG (NEURONTIN) CAP PO SCH ×3 (09:00→22:42)
[2017-03-06] MEDS: ZINC OXIDE 16% OINT (BUTT PASTE) 113 GM TUBE TOP SCH ×3 (09:01→22:44)
[2017-03-06] MEDS: DAKIN'S 1/4 STRENGTH (0.125%) 473 ML BTL TOP SCH ×2 (09:01→22:43)
[2017-03-06] MEDS: HYDROcodone/APAP 10 MG/325 MG (LORTAB) TAB PO PRN ×3 (09:45→22:42)
[2017-03-06] MEDS: VANCOMYCIN 1500 MG/NS 500 ML IVPB IV SCH ×2 (09:51)
--- NOTE | 2017-03-06 11:15 | Progress Note-Hospitalist ---
Progress Note HPI/CC on Admission The patient is a 51-year-old white female. She was brought to the emergency room from a crisis center. The various circumstances are quite unclear to us here. It is thought that she had been living independently and had been moved by the state to this center. It is also known that she has multiple sclerosis and has had pressure sores for some months. How this meets with the crisis Center capabilities is not at all clear. She apparently had seen some sort of wound care facility in [place]. The crisis center was concerned about her lethargy and malodorous urine. The patient was not able or willing to give much history. She is known to be diabetic and also to take Lasix and Xarelto. She reports that she uses a mechanical left to transfer and in recent weeks had a pinch or accident as a result of that and has developed a sore which is increasing in size and painful and malodorous over the coccyx area. She also has wounds on the right distal lateral fibula that are dry and as a result of pressure and also right heel sores on the posterior surface. Information obtained in the emergency room also suggested she has chronic lymphedema and an anticoagulant use the warfarin-induced coagulopathy and pulmonary embolus. She is said to have an ejection fraction of 15-20 percent but has no idea as to what the ailment might be. Progress Notes/Assess & Plan Date Seen 03/06/17 Time Seen by Provider: 10:30 Diagonsis/Assessment & Plan Pt doing well No pain is reported except decubitus ulcer Packing just came out of decubitus ulcer when she was given a bath when I was examining her and the wound looks good and clean BM are doing well since SSE cleared the impaction Wants to go home with caretakers to an apt at [facility] and I find that very unrealistic for the patient because she needs 24/7 nursing care AFVSS, pleasant, chronically ill, flat affect RRR, CTAB diminished in bases No edema, limited ROM due to chronic weakness from MS bedbound Laboratory Tests 03/06/17 04:20 Assessment per Admit: 1.Severe sepsis. 2.urinary tract infection. 3.cellulitis right upper thigh. 4.candidiasis groin and intertriginous area bilateral breasts. 5.multiple sclerosis. 6.Diabetes 7. Chronic debility 8. Constipation/Impaction resolved after SSE 9. Hypokalemia improved on supplement 10. BCx + GN and GP Plan: Debridement is appreciated - Dr. Olivera Dispo pending since [facility] could not meet her needs Monitor pt Abx Poor prognosis DC to [facility] once arranged? Potassium supp decrease to once daily JACOBO MATHIAS DO Mar 06, 2017 11:15
[2017-03-06 12:00] VITALS: BP 105/70
[2017-03-06] MEDS: fentaNYL INJECTION 100 MCG/2 ML AMP IV PRN ×2 (12:08→20:45)
--- NOTE | 2017-03-06 13:06 | Cardiology Progress Note ---
Cardiology SOAP Progress Note Subjective: No significant cardiac complaints. Objective: I&O/Vital Signs Vital Sign - Last 12Hours 03/06/17 03/06/17 05:36 10:16 Temp 96.3 Pulse 107 Resp 20 B/P (MAP) 97/65 (76) Pulse Ox 97 O2 Delivery Room Air Room Air Weight (Pounds): 232 Weight (Ounces): 6.0 Weight (Calculated Kilograms): 105.661428 Constitutional: No appears stated age, No AAO x 3, No apparent distress, No PERRL, No well-developed, No well-nourished, No other Respiratory: No accessory muscle use, No respiratory distress, No chest tender , No chest expansion is symmetric, No chest is bilaterally symmetric, No lungs clear to percussion, No lungs clear to auscultation, No crackles, No rhonchi, No rales, No stridor, No wheezing, No pleural rub, No other Cardiovascular: No regular rate-rhythm, No irregularly irregular, No extra beats, No parasternal heave is noted, No JVD, No edema, No bradycardia, No tachycardia, No point of maximal impulse, No cardiac thrills are palpable, No S1 and S2, No gallop/S3, No gallop/S4, No diastolic murmur, No systolic murmur, No friction rub, No click, No other Gastrointestional: No tender, No soft, No round, No distended, No pulsatile mass, No organomegaly, No guarding, No rebound, No tenderness, No hernia, No mass, No audible bowel sounds, No abnormal bowel sounds, No abdominal bruits, No spleenomegaly, No other Extremities: No normal range of motion, No non-tender, No normal inspection, No pedal edema, No calf tenderness, No normal capillary refill, No pelvis stable , No calf tenderness, No inflammation, No pedal edema, No slow capillary refill , No swelling, No other, No abrasion, No clubbing, No cyanosis, No ecchymosis, No laceration, No no lower extremity edema bilateral, No significant edema, No tenderness, No wound Neurologic/Psychiatric: No lipstick molder II-XII nml as tested, No no motor/sensory deficits, No alert, No normal mood/affect, No oriented x 3, No abnormal cerebellar tests, No abnormal lipstick molder II-XII, No abnormal gait, No aphasia, No EOM palsy, No facial droop, No motor weakness, No sensory deficit, No depressed affect, No disoriented x 3, No other, No grossly intact, No power is 5/5 both on sides Skin: normal color, warm/dry, ulcerations (pressure ulcer on the sacrum, left heel and candidiasis under her bilateral breasts left more than right.), other ( erythema and edema to right hip and buttock) Results/Procedures: Labs Laboratory Tests 03/05/17 15:54: Glucometer 186H 03/05/17 20:55: Glucometer 180H 03/06/17 04:20: White Blood Count 9.6, Red Blood Count 3.16L, Hemoglobin 8.2L, Hematocrit 27L, Mean Corpuscular Volume 84, Mean Corpuscular Hemoglobin 26, Mean Corpuscular Hemoglobin Concent 31L, Red Cell Distribution Width 14.9H, Platelet Count 423H, Mean Platelet Volume 10.4, Neutrophils (%) (Auto) 50, Lymphocytes (%) (Auto) 36 , Monocytes (%) (Auto) 9, Eosinophils (%) (Auto) 5, Basophils (%) (Auto) 1, Neutrophils # (Auto) 4.8, Lymphocytes # (Auto) 3.5, Monocytes # (Auto) 0.8, Eosinophils # (Auto) 0.5H, Basophils # (Auto) 0.1, Sodium Level 139, Potassium Level 4.1, Chloride Level 103, Carbon Dioxide Level 31, Anion Gap 5, Blood Urea Nitrogen 6L, Creatinine 0.45L, Estimat Glomerular Filtration Rate > 60, BUN/ Creatinine Ratio 13, Glucose Level 88, Calcium Level 7.9L, Total Bilirubin 0.3, Aspartate Amino Transf (AST/SGOT) 13, Alanine Aminotransferase (ALT/SGPT) 6, Alkaline Phosphatase 73, Total Protein 5.3L, Albumin 2.2L 03/06/17 08:56: Vancomycin Level Trough 5.6L 03/06/17 11:16: Glucometer 121H Microbiology 02/28/17 Blood Culture - Preliminary, Resulted No growth 02/28/17 MRSA Screen - Final, Complete MRSA not isolated 02/28/17 Urine Culture - Final, Complete Escherichia Coli Proteus Mirabilis Enterococcus Faecalis A/P: Assessment/Dx: Severe sepsis Hypotension Sinus tachycardia Decubitus ulcer Plan: Severe sepsis, secondary to cellulitis and decubitus ulcer, for debridement today, continue on antibiotics. Continue to monitor Sinus tachycardia, secondary to sepsis, continue to monitor heart rate closely. Congestive heart failure with severe left ventricular systolic dysfunction, currently patient is hypotensive cannot tolerate beta blockers, LUANA inhibitor and/or ARB. Will need to be initiated on these medication once more clinically stable. Etiology of congestive heart failure is unknown. Could be ischemic in nature. Hypotension, secondary to sepsis, continue with IV fluid support, continue to monitor closely Hypokalemia, hypomagnesemia, being replaced. Continue to monitor History of DVT maintained on Xarelto History of multiple sclerosis. Generalized weakness and limited exercise ability, limited mobility Decubitus ulcer Thank you for your consultation. Please call me if you have any questions. Ivan Stephenson MD, FACP, FACC, FSCAI, FHRS, CCDS Interventional Cardiology Cardiac Electrophysiology Vascular Medicine and Endovascular Interventions Aleena STEPHENSON MD Mar 06, 2017 1:06 pm
[2017-03-06 16:01] VITALS: BP_SYST 119; BP_SYST 95; BP_DIAS 57; BP_DIAS 72
[2017-03-06] MEDS: RIVAROXABAN 20 MG TABLET (XARELTO) PO SCH (16:39)
[2017-03-06 19:53] VITALS: BP 105/69
[2017-03-06] MEDS: inSUlin DETERMIR 1 UNIT/0.01 ML (LEVEMIR) CHARGE PER UNIT SQ SCH (20:30)
[2017-03-06] MEDS: ALPRAZolam 1 MG (XANAX) TAB PO PRN (22:42)
[2017-03-06] MEDS: NORTRIPTYLINE 25 MG (PAMELOR) CAP PO SCH (22:43)
[2017-03-06] MEDS: traZODone 50 MG (DESYREL) TAB PO SCH (23:42)
[2017-03-07] VITALS: BP 99/61
[2017-03-07 03:44] VITALS: BP 97/66
[2017-03-07] MEDS: inSUlin (REGULAR) HUMAN 1 UNIT/0.01 ML (CHARGE PER UNIT) SC SCH ×4 (05:10→20:33)
[2017-03-07] MEDS: MEROPENEM 500 MG/NS 100 ML IVPB IV SCH ×8 (06:34→23:58)
[2017-03-07] MEDS: CATHETER FLUSH 10 ML SYR IV SCH ×3 (06:35→22:15)
[2017-03-07] MEDS: PANTOPRAZOLE 40 MG (PROTONIX) TAB PO SCH (06:35)
[2017-03-07] MEDS: FERROUS SULF 325 MG (IRON) TAB PO SCH ×2 (06:35→18:02)
[2017-03-07] MEDS: FOLIC ACID 1 MG TAB PO SCH (06:35)
[2017-03-07] MEDS: MULTIVIT W/MINERALS TAB (THERAGRAN M) PO SCH (06:35)
[2017-03-07 07:15] LABS: BASOPHILS # (AUTO) 0.1 10^3/uL (0.0-0.1); BASOPHILS % (AUTO) 1 % (0-10); EOSINOPHILS # (AUTO) 0.5 10^3/uL (0.0-0.3); EOSINOPHILS % (AUTO) 5 % (0-10); LYMPHOCYTES % (AUTO) 41 % (12-44); MEAN CORPUSCULAR HEMOGLOBIN 26 PG (25-34); MEAN CORPUSCULAR HGB CONC 31 G/DL (32-36); MEAN CORPUSCULAR VOLUME 85 FL (80-99); MEAN PLATELET VOLUME 10.2 FL (7.4-10.4); MONOCYTES # (AUTO) 0.8 X 10^3 (0.0-1.0); MONOCYTES % (AUTO) 8 % (0-12); NEUTROPHILS # (AUTO) 4.4 X 10^3 (1.8-7.8); NEUTROPHILS % (AUTO) 46 % (42-75); PLATELET COUNT 455 10^3/uL (130-400); RED BLOOD COUNT 3.16 10^6/uL (4.35-5.85); RED CELL DISTRIBUTION WIDTH 15.2 % (10.0-14.5); WHITE BLOOD COUNT 9.7 10^3/uL (4.3-11.0)
[2017-03-07 07:34] LABS: ALANINE AMINOTRANSFERASE < 6 U/L (0-55); ALBUMIN 2.3 GM/DL (3.2-4.5); ANION GAP 6 MMOL/L (5-14); ASPARTATE AMINO TRANSFERASE 11 U/L (5-34); BILIRUBIN,TOTAL 0.3 MG/DL (0.1-1.0); BLOOD UREA NITROGEN 5 MG/DL (7-18); BUN/CREATININE RATIO 11; CALCIUM 7.8 MG/DL (8.5-10.1); CARBON DIOXIDE 29 MMOL/L (21-32); CHLORIDE 104 MMOL/L (98-107); CREATININE SERUM 0.46 MG/DL (0.60-1.30); GFR ESTIMATED > 60; GLUCOSE 118 MG/DL (70-105); POTASSIUM 4.1 MMOL/L (3.6-5.0); SODIUM 139 MMOL/L (135-145); TOTAL PROTEIN 5.6 GM/DL (6.4-8.2)
--- NOTE | 2017-03-07 08:17 | Cardiology Progress Note ---
Subjective Date Seen by Provider: Mar 07, 2017 Time Seen by Provider: 08:15 Subjective/Events-last exam Patient in bed, no new complaint. Denies any CP or dyspnea. Continues to be hypotensive, tachycardic. Review of Systems General: No Chills, No Night Sweats, No Fatigue, No Malaise, No Appetite, No Other HEENT: No Head Aches, No Visual Changes, No Eye Pain, No Ear Pain, No Dysphasia , No Sinus Congestion, No Post Nasal Drip, No Sore Throat, No Other Pulmonary: Dyspnea, No Cough, No Pleuritic Chest Pain, No Other Cardiovascular: Edema, No: Chest Pain, Palpitations, Orthopnea, Paroxysmal Noc. Dyspnea, Lt Headedness, Other Gastrointestinal: No: Nausea, Vomiting, Abdominal Pain, Diarrhea, Constipation , Melena, Hematochezia, Other Genitourinary: No Dysuria, No Frequency, No Incontinence, No Hematuria, No Retention, No Other Musculoskeletal: No: neck pain, back pain Neurological: Weakness, No: Numbness, Change in speech, Confusion Objective-Cardiology Exam Last Set of Vital Signs Vital Signs 03/07/17 03:44 Temp 97.8 Pulse 106 Resp 14 B/P (MAP) 97/66 (76) Pulse Ox 98 O2 Delivery Room Air Capillary Refill : Less Than 3 Seconds I&O Intake and Output 03/08/17 00:00 Intake Total 400 ml Output Total 700 ml Balance -300 ml Intake Oral 400 ml Output Urine Total 700 ml # Bowel Movements 1 General: Alert, Oriented X3, Cooperative HEENT: Atraumatic, PERRLA Neck: Supple, No JVD, No Thyromegaly Lungs: Clear to Auscultation, Normal Air Movement Heart: Normal S1, Normal S2, Other (tachycardic, diffuse lower exudate edema) Abdomen: Normal Bowel Sounds, Soft Skin: No Rashes, No Significant Lesion Neuro: Normal Speech, Cranial Nerves 3-12 NL Psych/Mental Status: Mental Status NL, Mood NL Results Lab Laboratory Tests 03/07/17 06:30 A/P-Cardiology Admission Diagnosis Severe sepsis Hypotension Sinus tachycardia Decubitus ulcer Assessment/Plan Severe sepsis, secondary to cellulitis and decubitus ulcer, s/p debridement. Continue on antibiotics. Continue to monitor Sinus tachycardia, secondary to sepsis, continue to monitor heart rate closely. Congestive heart failure with severe left ventricular systolic dysfunction, currently patient is hypotensive cannot tolerate beta blockers, LUANA inhibitor and/or ARB. Will need to be initiated on these medication once more clinically stable. Etiology of congestive heart failure is unknown. Could be ischemic in nature. Hypotension, secondary to sepsis, continue with IV fluid support, continue to monitor closely Hypokalemia, hypomagnesemia, improved. Continue to monitor History of DVT maintained on Xarelto History of multiple sclerosis. Generalized weakness and limited exercise ability, limited mobility Decubitus ulcer Clinical Quality Measures DVT/VTE Risk/Contraindication: Risk Factor Score Per Nursin RFS Level Per Nursing on Admit: 4+=Very High FIOR AMADOR Mar 07, 2017 08:17
[2017-03-07 08:19] VITALS: BP 109/68
--- NOTE | 2017-03-07 08:42 | Cardiology Progress Note ---
Subjective Date Seen by Provider: Mar 07, 2017 Time Seen by Provider: 08:40 Subjective/Events-last exam Patient is laying down in bed, feeling slightly better, blood pressure is improving, slightly tachycardic Review of Systems General: No Chills, No Night Sweats, Fatigue, Malaise, No Appetite, No Other HEENT: No Head Aches, No Visual Changes, No Eye Pain, No Ear Pain, No Dysphasia , No Sinus Congestion, No Post Nasal Drip, No Sore Throat, No Other Pulmonary: Dyspnea, No Cough, No Pleuritic Chest Pain, No Other Cardiovascular: No: Chest Pain, Palpitations, Orthopnea, Paroxysmal Noc. Dyspnea, Edema, Lt Headedness, Other Objective-Cardiology Exam Last Set of Vital Signs Vital Signs 03/07/17 08:19 Temp 97.3 Pulse 106 Resp 20 B/P (MAP) 109/68 (82) Pulse Ox 99 O2 Delivery Room Air Capillary Refill : Less Than 3 Seconds I&O Intake and Output 03/08/17 00:00 Intake Total 500 ml Output Total 700 ml Balance -200 ml Intake Oral 400 ml IV Total 100 ml Output Urine Total 700 ml # Bowel Movements 1 General: Alert, Oriented X3, Cooperative HEENT: Atraumatic, PERRLA Neck: Supple, No JVD, No Thyromegaly Lungs: Clear to Auscultation, Normal Air Movement Heart: Normal S1, Normal S2, Other (tachycardic, diffuse lower exudate edema) Abdomen: Normal Bowel Sounds, Soft Skin: No Rashes, No Significant Lesion Neuro: Normal Speech, Cranial Nerves 3-12 NL Psych/Mental Status: Mental Status NL, Mood NL Results Lab Laboratory Tests 03/07/17 06:30 A/P-Cardiology Admission Diagnosis Severe sepsis Hypotension Sinus tachycardia Decubitus ulcer Assessment/Plan Severe sepsis, secondary to cellulitis and decubitus ulcer, s/p debridement receiving antibiotics, appear to be improving. Continue to monitor Sinus tachycardia, secondary to sepsis, continue to monitor heart rate closely. Congestive heart failure with severe left ventricular systolic dysfunction, currently patient is hypotensive cannot tolerate beta blockers, LUANA inhibitor and/or ARB. I will start low-dose beta blockers and evaluate her tolerance and response. Etiology of congestive heart failure is unknown, could be secondary to MS or ischemic. Hypotension, secondary to sepsis, blood pressure is better today, continue to monitor after starting beta blockers History of DVT maintained on Xarelto History of multiple sclerosis. Generalized weakness and limited exercise ability, limited mobility Decubitus ulcer Clinical Quality Measures DVT/VTE Risk/Contraindication: Risk Factor Score Per Nursin RFS Level Per Nursing on Admit: 4+=Very High PARAMJIT ONEILL MD Mar 07, 2017 08:41
[2017-03-07] MEDS: BACLOFEN 10 MG (LIORESAL) TAB PO SCH ×3 (08:52→19:59)
[2017-03-07] MEDS: ZINC OXIDE 16% OINT (BUTT PASTE) 113 GM TUBE TOP SCH ×3 (08:52→20:00)
[2017-03-07] MEDS: SENNA W/DOCUSATE (SENOKOT S) TABLET PO SCH ×2 (08:52→20:00)
[2017-03-07] MEDS: KCL 20 MEQ TAB (K-DUR) PO SCH (08:52)
[2017-03-07] MEDS: GABAPENTIN 300 MG (NEURONTIN) CAP PO SCH ×3 (08:52→20:00)
[2017-03-07] MEDS: LORATADINE (CLARITIN) 10 MG TAB PO SCH (08:52)
[2017-03-07] MEDS: VANCOMYCIN 1500 MG/NS 500 ML IVPB IV SCH ×2 (08:53)
[2017-03-07] MEDS: DAKIN'S 1/4 STRENGTH (0.125%) 473 ML BTL TOP SCH ×2 (08:53→20:45)
[2017-03-07] MEDS: ONDANSETRON 8 MG (ZOFRAN) ORAL DISSOLVE TAB PO PRN ×2 (09:01→20:33)
[2017-03-07] MEDS: CARVEDILOL 3.125 MG (COREG) TABLET PO SCH ×2 (09:01→19:59)
--- NOTE | 2017-03-07 10:08 | Progress Note-Hospitalist ---
Subjective HPI/CC On Admission Date Seen by Provider: Mar 07, 2017 Time Seen by Provider: 09:50 The patient is a 51-year-old white female. She was brought to the emergency room from a crisis center. The various circumstances are quite unclear to us here. It is thought that she had been living independently and had been moved by the state to this center. It is also known that she has multiple sclerosis and has had pressure sores for some months. How this meets with the crisis Center capabilities is not at all clear. She apparently had seen some sort of wound care facility in [place]. The crisis center was concerned about her lethargy and malodorous urine. The patient was not able or willing to give much history. She is known to be diabetic and also to take Lasix and Xarelto. She reports that she uses a mechanical left to transfer and in recent weeks had a pinch or accident as a result of that and has developed a sore which is increasing in size and painful and malodorous over the coccyx area. She also has wounds on the right distal lateral fibula that are dry and as a result of pressure and also right heel sores on the posterior surface. Information obtained in the emergency room also suggested she has chronic lymphedema and an anticoagulant use the warfarin-induced coagulopathy and pulmonary embolus. She is said to have an ejection fraction of 15-20 percent but has no idea as to what the ailment might be. Subjective/Events-last exam Pt reports doing well. Had some nausea this morning after medicine but now better. Discussed plans for DC hopefully tomorrow and patient agreeable. Objective Exam Vital Signs Vital Sign - Last 12Hours 03/01/17 00:00 Temp 98.5 Pulse 125 Resp 19 B/P (MAP) 101/68 Pulse Ox 96 O2 Delivery Room Air Capillary Refill : Less Than 3 Seconds General Appearance: No Apparent Distress, WD/WN Respiratory: Lungs Clear, No Respiratory Distress Cardiovascular: Regular Rate, Rhythm, No Murmur Gastrointestinal: Normal Bowel Sounds, Non Tender, Soft Neurologic/Psychiatric: Alert, Oriented x3 Results/Procedures Lab Laboratory Tests 03/07/17 06:30 Assessment/Plan Assessment and Plan Assess & Plan/Chief Complaint Severe Sepsis Diagnosis/Problems Diagnosis/Problems (1) Ulcer of sacral region, unstageable Status: Acute Assessment & Plan: Vanc and Merrem to finish tomorrow Dr Olivera consulted, appreciate help Plan to DC to [place] tomorrow (2) CHF (congestive heart failure) Assessment & Plan: Ef 25-30%, etiology unclear Has baseline hypotensive and has had difficulty tolerating heart failure meds Dr Dunne consulted, started BB today Will monitor BP closely Qualifiers: Qualified Codes: I50.20 - Unspecified systolic (congestive) heart failure (3) Normocytic anemia Status: Chronic Assessment & Plan: Likely due to chronic disease Trend (4) Multiple sclerosis Status: Chronic Assessment & Plan: No signs of flare (5) Prophylactic measure Assessment & Plan: Xarelto Saline Lock Reg NEGRA Wilkinson MD Mar 07, 2017 10:08 am
[2017-03-07 12:00] VITALS: BP 98/66
[2017-03-07 16:22] VITALS: BP 91/58
[2017-03-07] MEDS: RIVAROXABAN 20 MG TABLET (XARELTO) PO SCH (18:02)
[2017-03-07 19:50] VITALS: BP 99/66
[2017-03-07] MEDS: NORTRIPTYLINE 25 MG (PAMELOR) CAP PO SCH (20:00)
[2017-03-07] MEDS: traZODone 50 MG (DESYREL) TAB PO SCH (20:00)
[2017-03-07] MEDS: ALPRAZolam 1 MG (XANAX) TAB PO PRN (20:33)
[2017-03-07] MEDS: HYDROcodone/APAP 10 MG/325 MG (LORTAB) TAB PO PRN (20:33)
[2017-03-07] MEDS: inSUlin DETERMIR 1 UNIT/0.01 ML (LEVEMIR) CHARGE PER UNIT SQ SCH (20:33)
[2017-03-08 00:20] VITALS: BP 94/65
[2017-03-08 05:30] VITALS: BP 90/60
[2017-03-08] MEDS: inSUlin (REGULAR) HUMAN 1 UNIT/0.01 ML (CHARGE PER UNIT) SC SCH ×2 (05:52→11:38)
[2017-03-08] MEDS: MULTIVIT W/MINERALS TAB (THERAGRAN M) PO SCH (05:55)
[2017-03-08] MEDS: ONDANSETRON 8 MG (ZOFRAN) ORAL DISSOLVE TAB PO PRN (05:55)
[2017-03-08] MEDS: FOLIC ACID 1 MG TAB PO SCH (05:56)
[2017-03-08] MEDS: CATHETER FLUSH 10 ML SYR IV SCH (05:56)
[2017-03-08] MEDS: FERROUS SULF 325 MG (IRON) TAB PO SCH (05:56)
[2017-03-08] MEDS: PANTOPRAZOLE 40 MG (PROTONIX) TAB PO SCH (05:56)
[2017-03-08 06:11] LABS: BASOPHILS # (AUTO) 0.1 10^3/uL (0.0-0.1); BASOPHILS % (AUTO) 1 % (0-10); EOSINOPHILS # (AUTO) 0.4 10^3/uL (0.0-0.3); EOSINOPHILS % (AUTO) 5 % (0-10); LYMPHOCYTES # (AUTO) 3.4 X 10^3 (1.0-4.0); LYMPHOCYTES % (AUTO) 40 % (12-44); MEAN CORPUSCULAR HEMOGLOBIN 26 PG (25-34); MEAN CORPUSCULAR HGB CONC 31 G/DL (32-36); MEAN CORPUSCULAR VOLUME 85 FL (80-99); MEAN PLATELET VOLUME 9.9 FL (7.4-10.4); MONOCYTES # (AUTO) 0.8 X 10^3 (0.0-1.0); MONOCYTES % (AUTO) 9 % (0-12); NEUTROPHILS # (AUTO) 3.9 X 10^3 (1.8-7.8); NEUTROPHILS % (AUTO) 45 % (42-75); PLATELET COUNT 446 10^3/uL (130-400); RED BLOOD COUNT 2.99 10^6/uL (4.35-5.85); RED CELL DISTRIBUTION WIDTH 15.2 % (10.0-14.5); WHITE BLOOD COUNT 8.5 10^3/uL (4.3-11.0)
[2017-03-08 06:34] LABS: ALANINE AMINOTRANSFERASE < 6 U/L (0-55); ALBUMIN 2.3 GM/DL (3.2-4.5); ANION GAP 5 MMOL/L (5-14); ASPARTATE AMINO TRANSFERASE 11 U/L (5-34); BILIRUBIN,TOTAL 0.3 MG/DL (0.1-1.0); BLOOD UREA NITROGEN 5 MG/DL (7-18); BUN/CREATININE RATIO 11; CALCIUM 7.9 MG/DL (8.5-10.1); CARBON DIOXIDE 29 MMOL/L (21-32); CHLORIDE 106 MMOL/L (98-107); CREATININE SERUM 0.46 MG/DL (0.60-1.30); GFR ESTIMATED > 60; GLUCOSE 88 MG/DL (70-105); SODIUM 140 MMOL/L (135-145); TOTAL PROTEIN 5.4 GM/DL (6.4-8.2)
[2017-03-08 07:52] VITALS: BP 94/62
--- NOTE | 2017-03-08 08:02 | Cardiology Progress Note ---
Subjective Date Seen by Provider: Mar 08, 2017 Time Seen by Provider: 08:00 Subjective/Events-last exam Patient is sitting in bed, feeling better, borderline hypotensive. Review of Systems General: No Chills, No Night Sweats, No Fatigue, No Malaise, No Appetite, No Other HEENT: No Head Aches, No Visual Changes, No Eye Pain, No Ear Pain, No Dysphasia , No Sinus Congestion, No Post Nasal Drip, No Sore Throat, No Other Pulmonary: Dyspnea, No Cough, No Pleuritic Chest Pain, No Other Cardiovascular: No: Chest Pain, Palpitations, Orthopnea, Paroxysmal Noc. Dyspnea, Edema, Lt Headedness, Other Objective-Cardiology Exam Last Set of Vital Signs Vital Signs 03/08/17 07:52 Temp 96.9 Pulse 103 Resp 20 B/P (MAP) 94/62 (73) Pulse Ox 99 O2 Delivery Room Air Capillary Refill : Less Than 3 Seconds I&O Intake and Output 03/07/17 23:59 Intake Total 2540 ml Output Total 3400 ml Balance -860 ml Intake Oral 1825 ml IV Total 715 ml Output Urine Total 3400 ml # Bowel Movements 2 General: Alert, Oriented X3, Cooperative HEENT: Atraumatic, PERRLA Neck: Supple, No JVD, No Thyromegaly Lungs: Clear to Auscultation, Normal Air Movement Heart: Normal S1, Normal S2, Other (tachycardic, diffuse lower exudate edema) Abdomen: Normal Bowel Sounds, Soft Skin: No Rashes, No Significant Lesion Neuro: Normal Speech, Cranial Nerves 3-12 NL Psych/Mental Status: Mental Status NL, Mood NL Results Lab Laboratory Tests 03/08/17 06:00 A/P-Cardiology Admission Diagnosis Severe sepsis Hypotension Sinus tachycardia Decubitus ulcer Assessment/Plan Severe sepsis, secondary to cellulitis and decubitus ulcer, s/p debridement receiving antibiotics, appear to be improving, managed by primary care physician Sinus tachycardia, secondary to sepsis, improving. Continue to monitor. Congestive heart failure with severe left ventricular systolic dysfunction, currently patient is hypotensive cannot tolerate beta blockers, LUANA inhibitor and/or ARB. Etiology of congestive heart failure is unknown, could be secondary to MS or ischemic. Started on Coreg, borderline hypotensive. I will continue on the medication monitor closely. Hypotension, still borderline hypotensive, continue on low-dose beta blockers and evaluate tolerance and response History of DVT maintained on Xarelto History of multiple sclerosis. Generalized weakness and limited exercise ability, limited mobility Decubitus ulcer Clinical Quality Measures DVT/VTE Risk/Contraindication: Risk Factor Score Per Nursin RFS Level Per Nursing on Admit: 4+=Very High PARAMJIT ONEILL MD Mar 08, 2017 08:02
[2017-03-08] MEDS ORDERED: TROUGH ORDER-PHARMACY XX NR (08:30)
[2017-03-08] MEDS: LORATADINE (CLARITIN) 10 MG TAB PO SCH (09:11)
[2017-03-08] MEDS: BACLOFEN 10 MG (LIORESAL) TAB PO SCH (09:11)
[2017-03-08] MEDS: GABAPENTIN 300 MG (NEURONTIN) CAP PO SCH (09:11)
[2017-03-08] MEDS: SENNA W/DOCUSATE (SENOKOT S) TABLET PO SCH (09:11)
[2017-03-08] MEDS: CARVEDILOL 3.125 MG (COREG) TABLET PO SCH (09:11)
[2017-03-08] MEDS: KCL 20 MEQ TAB (K-DUR) PO SCH (09:11)
[2017-03-08] MEDS: DAKIN'S 1/4 STRENGTH (0.125%) 473 ML BTL TOP SCH (09:12)
[2017-03-08] MEDS: ZINC OXIDE 16% OINT (BUTT PASTE) 113 GM TUBE TOP SCH (09:12)
[2017-03-08] MEDS ORDERED: CARV3.122 PO (09:17)
[2017-03-08] MEDS ORDERED: TRAM50TA2 PO (09:33)
[2017-03-08] MEDS ORDERED: ALPR0.5T7 PO (09:33)
[2017-03-08] MEDS ORDERED: HYDR-3820 PO (09:33)
[2017-03-08] MEDS: VANCOMYCIN 1500 MG/NS 500 ML IVPB IV SCH ×2 (10:00)
--- NOTE | 2017-03-08 12:33 | Discharge Summary-Hospitalist ---
Diagnosis/Chief Complaint Date of Admission Feb 28, 2017 at 7:34 pm Date of Discharge Discharge Date: Mar 08, 2017 Admission Diagnosis 1.possible sepsis. 2.apparent urinary tract infection. 3.cellulitis right upper thigh. 4.candidiasis groin and intertriginous area bilateral breasts. 5.multiple sclerosis. 6.diabetes Discharge Diagnosis Severe Sepsis (1) Ulcer of sacral region, unstageable Status: Acute Assessment & Plan: Vanc and Merrem completed Dr Olivera consulted, appreciate help DC to [facility] today (2) CHF (congestive heart failure) Assessment & Plan: Ef 25-30%, etiology unclear Has baseline hypotensive and has had difficulty tolerating heart failure meds Dr Dunne consulted, started BB today Will monitor BP closely (3) Normocytic anemia Status: Chronic Assessment & Plan: Likely due to chronic disease Trend (4) Multiple sclerosis Status: Chronic Assessment & Plan: No signs of flare (5) Prophylactic measure Assessment & Plan: Xarelto Saline Lock Reg Diet Discharge Summary Consultations Dr. Olivera- Surgery Dr. Reeves- Wound Care Dr. Dunne- Cardiology Dr Chowdhury- Pulmonology Discharge Physical Examination Allergies: Coded Allergies: No Known Drug Allergies (Unverified , 02/28/17) Vitals & I&Os Vital Signs Date Time Temp Pulse Resp B/P (MAP) Pulse Ox O2 Delivery O2 Flow Rate FiO2 03/08/17 07:52 96.9 103 20 94/62 (73) 99 Room Air Hospital Course Pt was admitted for sepsis due to pressure ulcers. She was taken for debridement by Dr. Olivera and was followed by wound care service. She completed a 10 day course of antibiotics (Vanc and Merrem) and responded well. She was discharged to [facility]. She was also found to have an EF of 20% for which Dr Dunne was consulted and managed. Due to her hypotensive she is only able to tolerate very low dose Coreg. Labs (last 24 hrs) Laboratory Tests 03/07/17 16:26: Glucometer 157H 03/07/17 20:29: Glucometer 183H 03/08/17 05:34: Glucometer 96 03/08/17 06:00: White Blood Count 8.5, Red Blood Count 2.99L, Hemoglobin 7.8L, Hematocrit 25L, Mean Corpuscular Volume 85, Mean Corpuscular Hemoglobin 26, Mean Corpuscular Hemoglobin Concent 31L, Red Cell Distribution Width 15.2H, Platelet Count 446H, Mean Platelet Volume 9.9, Neutrophils (%) (Auto) 45, Lymphocytes (%) (Auto) 40, Monocytes (%) (Auto) 9, Eosinophils (%) (Auto) 5, Basophils (%) (Auto) 1, Neutrophils # (Auto) 3.9, Lymphocytes # (Auto) 3.4, Monocytes # (Auto) 0.8, Eosinophils # (Auto) 0.4H, Basophils # (Auto) 0.1, Sodium Level 140, Potassium Level 4.0, Chloride Level 106, Carbon Dioxide Level 29, Anion Gap 5, Blood Urea Nitrogen 5L, Creatinine 0.46L, Estimat Glomerular Filtration Rate > 60, BUN/ Creatinine Ratio 11, Glucose Level 88, Calcium Level 7.9L, Total Bilirubin 0.3, Aspartate Amino Transf (AST/SGOT) 11, Alanine Aminotransferase (ALT/SGPT) < 6, Alkaline Phosphatase 77, Total Protein 5.4L, Albumin 2.3L 03/08/17 09:15: Vancomycin Level Trough 12.3 03/08/17 10:45: Glucometer 118H Microbiology 02/28/17 Blood Culture - Final, Complete No growth 02/28/17 MRSA Screen - Final, Complete MRSA not isolated 02/28/17 Urine Culture - Final, Complete Escherichia Coli Proteus Mirabilis Enterococcus Faecalis Pending Labs Laboratory Tests 03/08/17 05:34: Glucometer 96 03/08/17 06:00: White Blood Count 8.5, Red Blood Count 2.99, Hemoglobin 7.8, Hematocrit 25, Mean Corpuscular Volume 85, Mean Corpuscular Hemoglobin 26, Mean Corpuscular Hemoglobin Concent 31, Red Cell Distribution Width 15.2, Platelet Count 446, Mean Platelet Volume 9.9, Neutrophils (%) (Auto) 45, Lymphocytes (%) (Auto) 40, Monocytes (%) (Auto) 9, Eosinophils (%) (Auto) 5, Basophils (%) (Auto) 1, Neutrophils # (Auto) 3.9, Lymphocytes # (Auto) 3.4, Monocytes # (Auto) 0.8, Eosinophils # (Auto) 0.4, Basophils # (Auto) 0.1, Sodium Level 140, Potassium Level 4.0, Chloride Level 106, Carbon Dioxide Level 29, Anion Gap 5, Blood Urea Nitrogen 5, Creatinine 0.46, Estimat Glomerular Filtration Rate > 60, BUN/ Creatinine Ratio 11, Glucose Level 88, Calcium Level 7.9, Total Bilirubin 0.3, Aspartate Amino Transf (AST/SGOT) 11, Alanine Aminotransferase (ALT/SGPT) < 6, Alkaline Phosphatase 77, Total Protein 5.4, Albumin 2.3 03/08/17 09:15: Vancomycin Level Trough 12.3 03/08/17 10:45: Glucometer 118 Discharge Home Medications: Active Scripts Active Tramadol HCl 50 Mg Tablet 50-100 Mg PO QID PRN Alprazolam 0.5 Mg Tablet 0.25-1 Mg PO QID PRN TAKES 1/2 TO 2 (0.5MG) TABLETS Hydrocodon-Acetaminophn 10-325 (Hydrocodone/Acetaminophen) 1 Each Tablet 1 Tab PO TID PRN Carvedilol 3.125 Mg Tablet 3.125 Mg PO BID Reported Vitamin D-3 (Cholecalciferol (Vitamin D3)) 2,000 Unit Capsule 2,000 Unit PO DAILY Calmoseptine Ointment (Menthol/Lanolin/Calamine/Znox) 71 Gm Oint TP QID Cranberry Concentrate (Cranberry Extract) 500 Mg Capsule 500 Mg PO DAILY Biotin 2,500 Mcg Capsule 5,000 Mcg PO DAILY Senna S Tablet (Sennosides/Docusate Sodium) 1 Each Tablet 1 Tab PO BID Multivitamins with Minerals (Multivitamin with Minerals) 1 Each Tablet 1 Tab PO DAILY Miralax (Polyethylene Glycol 3350) 17 Gm Powd.pack 17 Gm PO DAILY PRN Ferosul (Ferrous Sulfate) 325 Mg Tablet 325 Mg PO BID Zofran (Ondansetron HCl) 8 Mg Tablet 8 Mg PO QID PRN Glydo (Lidocaine HCl) 6 Ml Jel.pf.simone TOP HS Lantus (Insulin Glargine,Hum.rec.anlog) 100 Unit/1 Ml Vial 15 Unit SQ HS Gentamicin Sulfate 30 Gm Oint...g. TP DAILY Cetirizine HCl 10 Mg Tablet 10 Mg PO DAILY Potassium Chloride 10 Meq Tab.er.prt 20 Meq PO BID TAKES 2 (10MEQ) TABLETS Folic Acid 1 Mg Tablet 1 Mg PO DAILY Movantik (Naloxegol Oxalate) 25 Mg Tablet 25 Mg PO DAILY Gabapentin 300 Mg Capsule 300 Mg PO TID Xarelto (Rivaroxaban) 20 Mg Tablet 20 Mg PO DAILY Pantoprazole Sodium 40 Mg Tablet.dr 40 Mg PO DAILY Enablex (Darifenacin Hydrobromide) 15 Mg Tab.er.24h 15 Mg PO DAILY Baclofen 10 Mg Tablet 10 Mg PO TID Nortriptyline HCl 25 Mg Capsule 50 Mg PO HS TAKES 2 (25MG) CAPSULES Trazodone HCl 50 Mg Tablet 50 Mg PO HS Trimethoprim 100 Mg Tablet 100 Mg PO HS Instructions to patient/family Please see electronic discharge instructions given to patient. Clinical Quality Measures DVT/VTE Risk/Contraindication: Risk Factor Score Per Nursin RFS Level Per Nursing on Admit: 4+=Very High Problem Qualifiers (1) CHF (congestive heart failure): Congestive heart failure type: systolic Congestive heart failure chronicity: unspecified congestive heart failure chronicity Qualified Codes: I50.20 - Unspecified systolic (congestive) heart failure NEGRA WINCHESTER MD Mar 08, 2017 12:33 pm
== END 2017-03-08 12:45 | DRG 853 ==
LOC: EDUNIT# 17:59 → ER 18:00 → ICU 19:34 → 4TH 03-02 17:40
PROVIDERS: ADMIT Internal Medicine; ATTEND Internal Medicine
PROC: 0KBP0ZZ Excision of Left Hip Muscle, Open Approach (ICD-10-PCS; 2017-03-03)
PROC: 0KBN0ZZ Excision of Right Hip Muscle, Open Approach (ICD-10-PCS; principal; 2017-03-03 13:50)
DX: A41.9 Sepsis, unspecified organism (principal); R65.20 Severe sepsis without septic shock; N39.0 Urinary tract infection, site not specified; E87.2 Acidosis; L89.154 Pressure ulcer of sacral region, stage 4; L03.115 Cellulitis of right lower limb; I50.20 Unspecified systolic (congestive) heart failure; B37.89 Other sites of candidiasis; Z66 Do not resuscitate; G35 Multiple sclerosis; Z86.718 Personal history of other venous thrombosis and embolism; J44.9 Chronic obstructive pulmonary disease, unspecified; E11.9 Type 2 diabetes mellitus without complications; N18.9 Chronic kidney disease, unspecified; F32.9 Major depressive disorder, single episode, unspecified; F41.9 Anxiety disorder, unspecified; Z79.4 Long term (current) use of insulin; L30.4 Erythema intertrigo; E87.6 Hypokalemia; E83.42 Hypomagnesemia; R53.81 Other malaise; K59.00 Constipation, unspecified; D64.9 Anemia, unspecified
CPT/HCPCS: 36415; 36569; 71010; 76937; 80053; 80202; 80306; 80320; 80329; 81000; 82962; 83605; 83735; 83880; 84100; 84132; 85007; 85025; 85027; 85610; 85730; 87040; 87077; 87081; 87088; 87186; 93306; 96365; 96367

== ENCOUNTER 2017-06-10 12:38 | Inpatient (IN) | payer MEDICAID ==
[~2017-06-10] VITALS: Ht 157.5 cm; Wt 88.3 kg
[2017-06-10] VITALS (11 sets, daily range): BP systolic 91–127; BP diastolic 61–80
[~2017-06-10 12:38] MED LIST: ALPR0.5T7 PO; BACL10TA PO; BIOT25007 PO; CARV3.122 PO; CETI10TA17 PO; CHOL20002 PO; CRAN500C5 PO; DARI15TA PO; FERR325T24 PO; FOLI1TAB24 PO; FURO40TA4 PO; GABA-488 PO; GENT30OI2 TP; HYDR-3820 PO; INSU100V6 SQ; LIDO6JEL TOP; MENT71OI TP; MULT-166 PO; NALO25TA PO; NORT25CA PO; ONDA8TAB6 PO; PANT40TA3 PO; POLY17PO6 PO; POTA10TA36 PO; RIVA20TA PO; SENN-1 PO; TRAM50TA2 PO; TRAZ-28 PO; TRIM100T PO
[2017-06-10 12:52] LABS: BASOPHILS % (AUTO) 0 % (0-10); EOSINOPHILS % (AUTO) 0 % (0-10); HEMATOCRIT 28 % (35-52); HEMOGLOBIN 9.1 G/DL (11.5-16.0); LYMPHOCYTES # (AUTO) 0.8 X 10^3 (1.0-4.0); LYMPHOCYTES % (AUTO) 5 % (12-44); MEAN CORPUSCULAR HEMOGLOBIN 26 PG (25-34); MEAN CORPUSCULAR HGB CONC 32 G/DL (32-36); MEAN CORPUSCULAR VOLUME 81 FL (80-99); MONOCYTES # (AUTO) 0.5 X 10^3 (0.0-1.0); MONOCYTES % (AUTO) 3 % (0-12); NEUTROPHILS # (AUTO) 14.2 X 10^3 (1.8-7.8); NEUTROPHILS % (AUTO) 91 % (42-75); PLATELET COUNT 342 10^3/uL (130-400); RED BLOOD COUNT 3.49 10^6/uL (4.35-5.85); RED CELL DISTRIBUTION WIDTH 14.9 % (10.0-14.5); WHITE BLOOD COUNT 15.5 10^3/uL (4.3-11.0)
[2017-06-10] MEDS ORDERED: HYDROCORTISONE 100 MG/2 ML (Solu-CORTEF) VIAL IV ONE (13:00)
[2017-06-10 13:07] LABS: BAND NEUTROPHILS 16 %; BASOPHILS % (MANUAL) 0 %; EOSINOPHILS % (MANUAL) 0 %; HYPOCHROMASIA SLIGHT; LYMPHOCYTES % (MANUAL) 6 %; MONOCYTES % (MANUAL) 0 %; NEUTROPHILS % (MANUAL) 78 %
[2017-06-10 13:08] LABS: INR 1.4 (0.8-1.4); PROTHROMBIN TIME PATIENT 17.1 SEC (12.2-14.7)
--- NOTE | 2017-06-10 13:11 | ED General ---
General Stated Complaint: AMS Source of Information: Patient Exam Limitations: No Limitations History of Present Illness Date Seen by Provider: Jun 10, 2017 Time Seen by Provider: 12:40 Initial Comments Here by EMS with report of altered mental status and hypotension. Patient not really able to answer questions due to clinical condition. Blood pressures 60s over 40s per EMS. That was their second visit today. First visit, patient refused and did not want them to do any evaluation. Second visit, patient is unable to answer questions well but does not yes or no and she was brought to the ER for evaluation. She does have history of multiple sclerosis and multiple other comorbidities. These include heart failure with EF 15-20 percent. Previous hospitalization in February of last year for septic shock. Unsure of events leading up to current condition patient's underlying condition. Does have Logan catheter in place that was apparently placed by home health nurse. Chart review indicates that the patient may have expressed DO NOT RESUSCITATE status but there is no formal documentation. Patient arrives in significant distress Timing/Duration: 4-6 Hours Severity: Severe Associated Systoms: Weakness Allergies and Home Medications Allergies Coded Allergies: No Known Drug Allergies (Unverified , 02/28/17) Home Medications Alprazolam 0.5 Mg Tablet, 0.25-1 MG PO QID PRN for ANXIETY TAKES 1/2 TO 2 (0.5MG) TABLETS Prescribed by: NEGRA WINCHESTER on 03/08/17 0933 Baclofen 10 Mg Tablet, 10 MG PO TID, (Reported) Biotin 2,500 Mcg Capsule, 5,000 MCG PO DAILY, (Reported) Carvedilol 3.125 Mg Tablet, 3.125 MG PO BID Prescribed by: NEGRA WINCHESTER on 03/08/17 0917 Cetirizine HCl 10 Mg Tablet, 10 MG PO DAILY, (Reported) Cholecalciferol (Vitamin D3) 2,000 Unit Capsule, 2,000 UNIT PO DAILY, (Reported) Cranberry Extract 500 Mg Capsule, 500 MG PO DAILY, (Reported) Darifenacin Hydrobromide 15 Mg Tab.er.24h, 15 MG PO DAILY, (Reported) Ferrous Sulfate 325 Mg Tablet, 325 MG PO BID, (Reported) Folic Acid 1 Mg Tablet, 1 MG PO DAILY, (Reported) Gabapentin 300 Mg Capsule, 300 MG PO TID, (Reported) Gentamicin Sulfate 30 Gm Oint...g., TP DAILY, (Reported) Hydrocodone/Acetaminophen 1 Each Tablet, 1 TAB PO TID PRN for PAIN-MODERATE Prescribed by: NEGRA WINCHESTER on 03/08/17932 Insulin Glargine,Hum.rec.anlog 100 Unit/1 Ml Vial, 15 UNIT SQ HS, (Reported) Lidocaine HCl 6 Ml Jel.pf.simone, TOP HS, (Reported) Menthol/Lanolin/Calamine/Znox 71 Gm Oint, TP QID, (Reported) Multivitamin with Minerals 1 Each Tablet, 1 TAB PO DAILY, (Reported) Naloxegol Oxalate 25 Mg Tablet, 25 MG PO DAILY, (Reported) Nortriptyline HCl 25 Mg Capsule, 50 MG PO HS, (Reported) TAKES 2 (25MG) CAPSULES Ondansetron HCl 8 Mg Tablet, 8 MG PO QID PRN for NAUSEA/VOMITING-1ST LINE, ( Reported) Pantoprazole Sodium 40 Mg Tablet.dr, 40 MG PO DAILY, (Reported) Polyethylene Glycol 3350 17 Gm Powd.pack, 17 GM PO DAILY PRN for CONSTIPATION- 2ND LINE, (Reported) Potassium Chloride 10 Meq Tab.er.prt, 20 MEQ PO BID, (Reported) TAKES 2 (10MEQ) TABLETS Rivaroxaban 20 Mg Tablet, 20 MG PO DAILY, (Reported) Sennosides/Docusate Sodium 1 Each Tablet, 1 TAB PO BID, (Reported) Tramadol HCl 50 Mg Tablet, 50-100 MG PO QID PRN for PAIN-MODERATE Prescribed by: NEGRA WINCHESTER on 03/08/17932 Trazodone HCl 50 Mg Tablet, 50 MG PO HS, (Reported) Trimethoprim 100 Mg Tablet, 100 MG PO HS, (Reported) Patient Home Medication List Home Medication List Reviewed: Yes Constitutional: see HPI Other Unable to complete review of systems due to altered mental status Past Tryzlae-Bieyqu-Mktlcw Hx Patient Social History Alcohol Use: Occasionally Uses Alcohol Beverage of Choice: Beer, Wine Smoking Status: Unknown if Ever Smoked Seasonal Allergies Seasonal Allergies: No Surgeries History of Surgeries: No Respiratory History of Respiratory Disorde: Yes Respiratory Disorders: Pulmonary Embolism, COPD Cardiovascular History of Cardiac Disorders: Yes Cardiac Disorders: Deep Vein Thrombosis, Hypotension Neurological History of Neurological Disord: Yes Neurological Disorders: Multiple Sclerosis Genitourinary History of Genitourinary Disor: Yes Genitourinary Disorders: Renal Failure, UTI-Chronic Gastrointestinal History of Gastrointestinal Di: Yes Gastrointestinal Disorders: Hiatal Hernia Endocrine History of Endocrine Disorders: Yes Endocrine Disorders: Diabetes, Non-Insulin dep HEENT History of HEENT Disorders: No Psychosocial History of Psychiatric Problem: Yes Behavioral Health Disorders: Sleep Difficulties, Anxiety, Depression Integumentary History of Skin or Integumenta: Yes (sacral wound/ulcer, rash under breasts) Reviewed Nursing Assessment Reviewed/Agree w Nursing PMH: Yes Physical Exam-Suspected Sepsis Physical Exam Vital Signs Vital Signs - First Documented 06/10/17 12:40 Temp 98.1 Pulse 107 Resp 12 B/P (MAP) 72/33 (46) Pulse Ox 97 O2 Delivery OxyMask Capillary Refill : General Appearance: Chronically ill, Moderate Distress HEENT: PERRL/EOMI, Pharynx Normal Neck: Non Tender, Supple Respiratory: Lungs Clear, Other (shallow respirations) Cardiovascular: No Murmur, Tachycardia Gastrointestinal: Non Tender, Soft Extremity: Pedal Edema (3-4+ edema bilateral lower extremities at the knees), Other Neurologic/Psychiatric: Depressed Affect, Disoriented x3, Other (does not really answer questions except for shakes had a little bit yes or no.) Skin: warm/dry, pallor, No rash, No ulcerations Focused Exam Evaluation Lactate Level Laboratory Tests 06/10/17 12:40: Lactic Acid Level 1.78 Lactic Acid Level Laboratory Tests Test 06/10/17 12:40 Lactic Acid Level 1.78 MMOL/L (0.50-2.00) Progress/Results/Core Measures Suspected Sepsis SIRS Temperature: Pulse: Respiratory Rate: Laboratory Tests 06/10/17 12:40: White Blood Count 15.5H Blood Pressure / Mean: Laboratory Tests 06/10/17 12:40: Lactic Acid Level 1.78 Laboratory Tests 06/10/17 12:40: Creatinine 0.95, INR Comment 1.4, Platelet Count 342, Total Bilirubin 1.2H Results/Orders Lab Results Laboratory Tests Test 06/10/17 12:40 06/10/17 13:05 Range/Units White Blood Count 15.5 H 4.3-11.0 10^3/uL Red Blood Count 3.49 L 4.35-5.85 10^6/uL Hemoglobin 9.1 L 11.5-16.0 G/DL Hematocrit 28 L 35-52 % Mean Corpuscular Volume 81 80-99 FL Mean Corpuscular Hemoglobin 26 25-34 PG Mean Corpuscular Hemoglobin Concent 32 32-36 G/DL Red Cell Distribution Width 14.9 H 10.0-14.5 % Platelet Count 342 130-400 10^3/uL Mean Platelet Volume 10.0 7.4-10.4 FL Neutrophils (%) (Auto) 91 H 42-75 % Lymphocytes (%) (Auto) 5 L 12-44 % Monocytes (%) (Auto) 3 0-12 % Eosinophils (%) (Auto) 0 0-10 % Basophils (%) (Auto) 0 0-10 % Neutrophils # (Auto) 14.2 H 1.8-7.8 X 10^3 Lymphocytes # (Auto) 0.8 L 1.0-4.0 X 10^3 Monocytes # (Auto) 0.5 0.0-1.0 X 10^3 Eosinophils # (Auto) 0.0 0.0-0.3 10^3/uL Basophils # (Auto) 0.0 0.0-0.1 10^3/uL Neutrophils % (Manual) 78 % Lymphocytes % (Manual) 6 % Monocytes % (Manual) 0 % Eosinophils % (Manual) 0 % Basophils % (Manual) 0 % Band Neutrophils 16 % Hypochromasia SLIGHT Prothrombin Time 17.1 H 12.2-14.7 SEC INR Comment 1.4 0.8-1.4 Activated Partial Thromboplast Time 34 24-35 SEC Sodium Level 135 135-145 MMOL/L Potassium Level 4.5 3.6-5.0 MMOL/L Chloride Level 99 98-107 MMOL/L Carbon Dioxide Level 26 21-32 MMOL/L Anion Gap 10 5-14 MMOL/L Blood Urea Nitrogen 27 H 7-18 MG/DL Creatinine 0.95 0.60-1.30 MG/DL Estimat Glomerular Filtration Rate > 60 BUN/Creatinine Ratio 28 Glucose Level 133 H 70-105 MG/DL Lactic Acid Level 1.78 0.50-2.00 MMOL/L Calcium Level 8.7 8.5-10.1 MG/DL Total Bilirubin 1.2 H 0.1-1.0 MG/DL Aspartate Amino Transf (AST/SGOT) 27 5-34 U/L Alanine Aminotransferase (ALT/SGPT) 20 0-55 U/L Alkaline Phosphatase 164 H 40-136 U/L Total Protein 7.4 6.4-8.2 GM/DL Albumin 3.0 L 3.2-4.5 GM/DL Urine Color BERNIE H Urine Clarity VERY CLOUDY H Urine pH 7 5-9 Urine Specific Molt 1.010 L 1.016-1.022 Urine Protein 3+ H NEGATIVE Urine Glucose (UA) NEGATIVE NEGATIVE Urine Ketones 1+ H NEGATIVE Urine Nitrite POSITIVE H NEGATIVE Urine Bilirubin 2+ H NEGATIVE Urine Urobilinogen 8 H NORMAL MG/DL Urine Leukocyte Esterase 3+ H NEGATIVE Urine RBC (Auto) 4+ H NEGATIVE Urine RBC 0-2 /HPF Urine WBC TNTC H /HPF Urine Squamous Epithelial Cells NONE /HPF Urine Crystals NONE /LPF Urine Bacteria LARGE H /HPF Urine Casts NONE /LPF Urine Mucus NEGATIVE /LPF Urine Culture Indicated YES My Orders Orders - IRA BEAUCHAMP MD Cbc With Automated Diff (06/10/17 12:43) Comprehensive Metabolic Panel (06/10/17 12:43) Lactic Acid Analyzer (06/10/17 12:43) Blood Culture (06/10/17 12:43) Sputum Culture (06/10/17 12:43) Ua Culture If Indicated (06/10/17 12:43) Protime With Inr (06/10/17 12:43) Partial Thromboplastin Time (06/10/17 12:43) Chest 1 View, Ap/Pa Only (06/10/17 12:43) O2 (06/10/17 12:43) Vital Signs Adult Sepsis Patie Q1H (06/10/17 12:43) Remove Rings In Anticipation O (06/10/17 12:43) Ns Iv 1000 Ml (Sodium Chloride 0.9%) (06/10/17 12:43) Hydrocortisone Injection (Solu-Cortef In (06/10/17 13:00) Manual Differential (06/10/17 12:40) Urine Culture (06/10/17 13:05) Norepinephrine (Levophed) (06/10/17 14:00) Piperacillin Sodium/Tazobactam (Zosyn Vi (06/10/17 14:30) Arterial Blood Gas (06/10/17 15:02) Drug Screen Stat (Urine) (06/10/17 15:10) Medications Given in ED Current Medications Medications Dose Ordered Sig/Humberto Route Start Time Stop Time Status Last Admin Dose Admin Hydrocortisone Sodium Succinate 100 mg ONCE ONCE IV 06/10/17 13:00 06/10/17 13:01 DC 06/10/17 13:00 100 MG Piperacillin Sod/ Tazobactam Sod 4.5 gm/Dextrose 100 ml @ 200 mls/hr ONCE ONCE IV 06/10/17 14:30 06/10/17 14:59 DC 06/10/17 14:51 200 MLS/HR Sodium Chloride 1,000 ml @ 0 mls/hr Q0M PRN IV 06/10/17 12:43 06/10/17 13:42 999 MLS/HR Vital Signs/I&O Vital Sign - Last 12Hours 06/10/17 06/10/17 12:40 12:40 Temp 98.1 Pulse 107 Resp 12 B/P (MAP) 72/33 (46) Pulse Ox 97 100 O2 Delivery OxyMask Capillary Refill : Progress Note : Progress Note Seen and evaluated. Central line placed shortly after arrival due to poor access and patient severe hypertension. Labs, blood cultures and UA ordered. Chest x-ray ordered. Normal saline 30 mL milligrams bolus ordered baseline IV of body weight for patient 5 feet 2 inches. Calculation would indicate just over 1600 mL. 2 L bolus will be given plus she has received 500 mL bolus that was initiated by EMS. Monitor patient. 1430: We did initiate norepinephrine as blood pressure was not maintaining above 90 systolic or 65 map. Zosyn 4.5 g IV initiated for known urinary tract infection and concerns for other unknown infection. Patient still very somnolent. 1510: Blood pressure 108/70 with heart rate of 102. O2 sat 99 percent on simple mask. ABG is been drawn and results pending. I attest to focused exam at this time. We will place palliative care consult as patient has significant underlying comorbidities and multiple chronic medical conditions as well as family is unsure of her status. I did talk with the daughter by phone who states that she believes her mother would not want anything if she will be "a vegetable" but otherwise would want intubation and CPR so we will maintain full code on her at this point. 1518: I discussed the case with Dr. Zamudio and she has accepted the patient for admission for Dr. Collins to the ICU. Inpatient status. 1530: Patient's daughter is here. On reevaluating the patient she is now talking and actually much better than she had been any point earlier. Blood pressures improved to 111/71. We will continue admission to the ICU. Critical condition. Diagnostic Imaging Diagonstic Imaging: Xray Plain Films/CT/US/NM/MRI: chest Comments VIA [facility], [facility]. [place], [place] NAME: RIOS [facility]ARC[facility] REC#: [id number] PT STATUS: REG ER : 1965 PHYSICIAN: IRA BEAUCHAMP MD ADMIT DATE: 06/10/17/ER Draft Date of Exam:06/10/17 CHEST 1 VIEW, AP/PA ONLY Indication: Line placement. Comparison: 03/02/2017 Findings: Clinical single frontal radiograph view of the chest was obtained and demonstrates interval removal of right upper extremity PICC line. Right internal jugular central venous catheter is seen with tip extending into the right atrium. Cardiac silhouette appears mildly enlarged. There are also low lung volumes and crowding of the central hilar structures and mild prominence of the pulmonary interstitium. Patchy bilateral perihilar opacities are also noted. There is no large effusion or pneumothorax. Bony structures show no gross acute abnormalities. Impression: 1. Right internal jugular central venous catheter with tip in the right atrium. 2. Cardiomegaly with probable pulmonary vascular congestion and interstitial pulmonary edema. Findings may be exaggerated by low inspiratory technique. Dictated on workstation # [id number] Dict: 06/10/17 1324 Trans: 06/10/17 1327 CV [id number] Interpreted by: MARKEL JIMENEZ MD Electronically signed by: Departure Communication (Admissions) Time/Spoke to Admitting Phy: 15:18 Impression Impression: Primary Impression: Septic shock Additional Impressions: UTI (urinary tract infection) Qualified Codes: N30.00 - Acute cystitis without hematuria Heart failure, diastolic, chronic Disposition: ADMITTED INPATIENT Condition: Critical Admissions Decision to Admit Reason: Admit from ER (General) Decision to Admit/Date: Jun 10, 2017 Time/Decision to Admit Time: 15:18 Departure-Patient Inst. Referrals: NO,LOCAL PHYSICIAN (PCP/Family) Primary Care Physician IRA BEAUCHAMP MD Jun 10, 2017 13:11
[2017-06-10 13:15] LABS: CLARITY,URINE VERY CLOUDY; COLOR,URINE AMBER; GLUCOSE, URINE (UA) NEGATIVE (NEGATIVE); KETONES,URINE 1+ (NEGATIVE); LEUKOCYTE ESTERASE ,URINE 3+ (NEGATIVE); NITRITE,URINE POSITIVE (NEGATIVE); PH,URINE 7 (5-9); PROTEIN,URINE 3+ (NEGATIVE); UROBILINOGEN,URINE 8 MG/DL (NORMAL)
[2017-06-10 13:16] LABS: ALANINE AMINOTRANSFERASE 20 U/L (0-55); ALKALINE PHOSPHATASE 164 U/L (40-136); BILIRUBIN,TOTAL 1.2 MG/DL (0.1-1.0); BUN/CREATININE RATIO 28; CALCIUM 8.7 MG/DL (8.5-10.1); CARBON DIOXIDE 26 MMOL/L (21-32); CHLORIDE 99 MMOL/L (98-107); CREATININE SERUM 0.95 MG/DL (0.60-1.30); GFR ESTIMATED > 60; GLUCOSE 133 MG/DL (70-105); POTASSIUM 4.5 MMOL/L (3.6-5.0); SODIUM 135 MMOL/L (135-145); TOTAL PROTEIN 7.4 GM/DL (6.4-8.2)
[2017-06-10 13:23] LABS: BILIRUBIN,URINE 2+ (NEGATIVE)
[2017-06-10 13:24] LABS: BACTERIA,URINE LARGE /HPF; RBC,URINE 0-2 /HPF; WBC,URINE TNTC /HPF
--- NOTE | 2017-06-10 13:27 | Diagnostic Imaging Report ---
Indication: Line placement. Comparison: 03/02/2017 Findings: Clinical single frontal radiograph view of the chest was obtained and demonstrates interval removal of right upper extremity PICC line. Right internal jugular central venous catheter is seen with tip extending into the right atrium. Cardiac silhouette appears mildly enlarged. There are also low lung volumes and crowding of the central hilar structures and mild prominence of the pulmonary interstitium. Patchy bilateral perihilar opacities are also noted. There is no large effusion or pneumothorax. Bony structures show no gross acute abnormalities. Impression: 1. Right internal jugular central venous catheter with tip in the right atrium. 2. Cardiomegaly with probable pulmonary vascular congestion and interstitial pulmonary edema. Findings may be exaggerated by low inspiratory technique. Dictated by: Dictated on workstation # [id number]
[2017-06-10] MEDS: NS IV 1000 ML 1,500 ML IV PRN ×2 (13:30→13:42)
[2017-06-10] MEDS: NS IV 1000 ML 1,000 ML IV PRN ×2 (13:30→13:42)
[2017-06-10] MEDS ORDERED: NOREPINEPHRINE 4 MG in NS (IVPB) 250 ML IV SCH (14:00)
[2017-06-10] MEDS ORDERED: PIPERACILLIN SODIUM/TAZOBACTAM 4.5 GM in D5W 100 ML IVPB 100 ML IV ONE (14:30)
[2017-06-10 15:21] LABS: ABG BASE EXCESS -0.2 MMOL/L (-2.5-2.5); ABG OXYGEN SATURATION 99 % (94-100); ABG PCO2 43 MMHG (35-45); ABG PH 7.37 (7.37-7.43); ABG PO2 175 MMHG (79-93); ABG TCO2 25.4 MMOL/L (21.0-31.0)
[2017-06-10 15:22] LABS: ALLENS TEST POSITIVE
[2017-06-10 15:23] LABS: INSPIRED O2 3L; PATIENT TEMP 100.4; VENTILATOR NO
[2017-06-10 15:33] LABS: AMPHETAMINE SCREEN, URINE NEGATIVE (NEGATIVE); BARBITURATE SCREEN URINE NEGATIVE (NEGATIVE); BENZODIAZEPINES SCREEN URINE NEGATIVE (NEGATIVE); CANNABINOID SCREEN, URINE NEGATIVE (NEGATIVE); COCAINE SCREEN URINE NEGATIVE (NEGATIVE); METHADONE STAT NEGATIVE (NEGATIVE); METHAMPHETAMINE SCREEN URINE S NEGATIVE (NEGATIVE); OPIATE SCREEN URINE POSITIVE (NEGATIVE); OXYCODONE STAT NEGATIVE (NEGATIVE); PROPOXYPHENE STAT NEGATIVE (NEGATIVE); TRICYCLIC ANTIDEPRESSANTS SCRE POSITIVE (NEGATIVE)
--- NOTE | 2017-06-10 16:09 | History & Physical-Hospitalist ---
HPI History of Present Illness: HPI/Chief Complaint 52 yo wf with MS presents with hypotension and decreased mental status. Pt at the time of my interview, is w/o complaint. Evaluation is c/w severe sepsis Source: patient, old records Exam Limitations: clinical condition Date Seen 06/10/17 Time Seen by Provider: 16:00 Attending Physician Eduin Collins DO PCP Eduin Collins DO Referring Physician Date of Admission Jun 10, 2017 at 15:36 Home Medications & Allergies Home Medications Reviewed patient Home Medication Reconciliation Form Allergies Allergies Coded Allergies No Known Drug Allergies (Czmwnsegnx82/27/17) Past Ahljjzq-Ttgmxf-Prhilp Hx Patient Social History Marrital Status: Employed/Student: retired Alcohol Use: Occasionally Uses Number of Drinks Today: Alcohol Beverage of Choice: Beer, Wine Recreational Drug Use: No Smoking Status: Unknown if Ever Smoked Recent Foreign Travel: No Contact w/other who traveled: No Recent Infectious Disease Expo: No Immunizations Up To Date Tetanus Booster (TDap): Unknown Seasonal Allergies Seasonal Allergies: No Surgeries No Respiratory Yes Cardiovascular Yes Deep Vein Thrombosis, Hypotension Neurological Yes Multiple Sclerosis Genitourinary Yes Renal Failure, UTI-Chronic Gastrointestinal Yes Hiatal Hernia Endocrine History of Endocrine Disorders: Yes Endocrine Disorders: Diabetes, Non-Insulin dep HEENT History of HEENT Disorders: No Psychosocial History of Psychiatric Problem: Yes Behavioral Health Disorders: Sleep Difficulties, Anxiety, Depression Integumentary History of Skin or Integumenta: Yes (sacral wound/ulcer, rash under breasts) Reviewed Nursing Assessment Reviewed/Agree w Nursing PMH: Yes Review of Systems Constitutional: no symptoms reported EENTM: no symptoms reported Respiratory: no symptoms reported Cardiovascular: no symptoms reported Gastrointestinal: no symptoms reported Musculoskeletal: muscle pain Psychiatric/Neurological: Weakness Physical Exam Physical Exam Vital Signs Vital Signs - First Documented 06/10/17 12:40 Temp 98.1 Pulse 107 Resp 12 B/P (MAP) 72/33 (46) Pulse Ox 97 O2 Delivery OxyMask Capillary Refill : Less Than 3 Seconds General Appearance: Chronically ill HEENT: Other (poor dentition) Neck: Limited Range of Motion Respiratory: Lungs Clear, Normal Breath Sounds, No Accessory Muscle Use, No Respiratory Distress Cardiovascular: Regular Rate, Rhythm, No Gallop, Systolic Murmur Gastrointestinal: Normal Bowel Sounds, No Pulsatile Mass, Non Tender, Soft Back: Other (unABLE TO EVALUATE FOR DECUB BECAUSE OF STOOL) Extremity: Pedal Edema, Other (PRESSURE SORE RIGHT HEEL - MEDIAL STAGE 3) Neurologic/Psychiatric: Depressed Affect Skin: Pallor Results Results/Procedures Lab Laboratory Tests 06/10/17 12:40 Assessment/Plan Admission Diagnosis SEPTIC SHOCK- IMPROVING AFTER 3 LITERS IV AND LEVOPHED UTI MS DECUBITUS ULCERS CHF WITH HX EF OF 15% ANEMIA-POSSIBLY FROM CHRONIC DZ ACUTE RESP FAILURE SECONDARY to 1 PT IS DNR- I DISCUSSED WITH PATIENT IN PRESENCE OF DAUGHTER-THEY WISH AGGRESSIVE TREATMENT BUT NO INTUBATION OR CPR Admission Status: Inpatient Order (span 2 midnights) Reason for Inpatient Admission: PT CRITICALLY ILL WITH MULTIPLE COMORBITITIES DONOVAN CARTER MD Jun 10, 2017 16:09
[2017-06-10] MEDS ORDERED: NS IV PRN (17:30)
[2017-06-10] MEDS: NOREPINEPHRINE 4 MG in NS (IVPB) 250 ML IV SCH (17:37)
[2017-06-10] MEDS: NS IV 1000 ML 1,000 ML IV SCH ×2 (17:39→21:45)
[2017-06-10] MEDS ORDERED: INFLUENZA TRIvalent 2017-2018 0.5 ML/45 MCG SYR IM ONE (20:00)
[2017-06-10] MEDS ORDERED: RT-ALBUTEROL/IPRATROPIUM 3 ML (DUONEB) VIAL INH PRN (20:00)
[2017-06-10] MEDS: RT-ALBUTEROL/IPRATROPIUM 3 ML (DUONEB) VIAL INH SCH (20:58)
[2017-06-10] MEDS: PIPERACILLIN SODIUM/TAZOBACTAM 4.5 GM in NS (IVPB) 100 ML IV SCH (21:15)
[2017-06-11] VITALS (24 sets, daily range): BP systolic 89–118; BP diastolic 47–78
[2017-06-11] MEDS: NS IV 1000 ML 1,000 ML IV SCH ×4 (01:46→21:18)
[2017-06-11] MEDS: RT-ALBUTEROL/IPRATROPIUM 3 ML (DUONEB) VIAL INH SCH ×4 (02:38→20:10)
[2017-06-11 03:53] LABS: BASOPHILS % (AUTO) 0 % (0-10); EOSINOPHILS % (AUTO) 0 % (0-10); HEMATOCRIT 24 % (35-52); HEMOGLOBIN 7.6 G/DL (11.5-16.0); LYMPHOCYTES # (AUTO) 1.6 X 10^3 (1.0-4.0); LYMPHOCYTES % (AUTO) 9 % (12-44); MEAN CORPUSCULAR HEMOGLOBIN 26 PG (25-34); MEAN CORPUSCULAR HGB CONC 31 G/DL (32-36); MEAN CORPUSCULAR VOLUME 81 FL (80-99); MEAN PLATELET VOLUME 10.1 FL (7.4-10.4); MONOCYTES # (AUTO) 0.8 X 10^3 (0.0-1.0); MONOCYTES % (AUTO) 5 % (0-12); NEUTROPHILS # (AUTO) 15.7 X 10^3 (1.8-7.8); NEUTROPHILS % (AUTO) 86 % (42-75); PLATELET COUNT 311 10^3/uL (130-400); RED BLOOD COUNT 2.98 10^6/uL (4.35-5.85); RED CELL DISTRIBUTION WIDTH 14.8 % (10.0-14.5); WHITE BLOOD COUNT 18.2 10^3/uL (4.3-11.0)
[2017-06-11 04:14] LABS: MAGNESIUM 1.4 MG/DL (1.8-2.4); PHOSPHORUS 2.1 MG/DL (2.3-4.7)
[2017-06-11 04:16] LABS: ALANINE AMINOTRANSFERASE 16 U/L (0-55); ALBUMIN 2.6 GM/DL (3.2-4.5); ALKALINE PHOSPHATASE 116 U/L (40-136); BILIRUBIN,TOTAL 0.6 MG/DL (0.1-1.0); BUN/CREATININE RATIO 29; CALCIUM 7.8 MG/DL (8.5-10.1); CARBON DIOXIDE 24 MMOL/L (21-32); CHLORIDE 106 MMOL/L (98-107); CREATININE SERUM 0.63 MG/DL (0.60-1.30); GFR ESTIMATED > 60; GLUCOSE 150 MG/DL (70-105); SODIUM 142 MMOL/L (135-145); TOTAL PROTEIN 6.2 GM/DL (6.4-8.2)
[2017-06-11 04:20] LABS: POTASSIUM 2.4 MMOL/L (3.6-5.0)
[2017-06-11] MEDS: MAGNESIUM 1 GM/100 ML IVPB 100 ML IV SCH ×5 (04:39→23:31)
[2017-06-11] MEDS: POTASSIUM CL 10MEQ/50ML IVPB 50 ML IV SCH ×12 (04:39→23:16)
[2017-06-11] MEDS: PIPERACILLIN SODIUM/TAZOBACTAM 4.5 GM in NS (IVPB) 100 ML IV SCH ×3 (04:40→21:18)
[2017-06-11] MEDS: KCL 20 MEQ TAB (K-DUR) PO SCH ×3 (06:34→18:09)
[2017-06-11] MEDS: NOREPINEPHRINE 4 MG in NS (IVPB) 250 ML IV SCH ×2 (06:35→20:24)
--- NOTE | 2017-06-11 07:55 | Diagnostic Imaging Report ---
Indication: ICU management Comparison: 06/11/2007 Findings: Upright portable view of the chest is obtained. Right IJ line is unchanged. Heart size remains mildly enlarged and central venous structures appear mildly congested similar to the prior study. Minimal alveolar opacities have shown minimal improvement. No new focal abnormality is seen. No pleural fluid is suspected. Impression: Cardiomegaly with minimal central venous congestion is similar to the prior study. Slightly improved alveolar opacities suggestive of mild improved edema. No new abnormality is seen. Dictated by: Dictated on workstation # [id number]
[2017-06-11] MEDS ORDERED: POLYETHYLENE GLYCOL 17 GM (MIRALAX) PACK PO PRN (10:00)
--- NOTE | 2017-06-11 10:03 | Progress Note-Hospitalist ---
Subjective HPI/CC On Admission Date Seen by Provider: Jun 11, 2017 Time Seen by Provider: 08:45 52 yo wf with MS presents with hypotension and decreased mental status. Pt at the time of my interview, is w/o complaint. Evaluation is c/w severe sepsis Subjective/Events-last exam Patient is much more awake this morning. She denies having any specific complaint. She has wandering conversation but knows that she is in the hospital knows her name and knows the season. She is off pressor support. She is received potassium and magnesium replacement for a very low potassium and magnesium this morning. Oxygen saturation is in the 90s on 2 L. Urine preliminarily shows Proteus. She requests a diet Coke or diet gordon coke as soon as possible. Review of Systems Neurological: Weakness Objective Exam Vital Signs Vital Signs Date Time Temp Pulse Resp B/P (MAP) Pulse Ox O2 Delivery O2 Flow Rate FiO2 06/10/17 12:40 98.1 107 12 72/33 (46) 97 06/10/17 12:40 OxyMask 06/10/17 19:04 21 Capillary Refill : Less Than 3 Seconds General Appearance: Chronically ill HEENT: Other (Very poor dentition) Neck: Limited Range of Motion Respiratory: Lungs Clear, Normal Breath Sounds, No Accessory Muscle Use, No Respiratory Distress Cardiovascular: Regular Rate, Rhythm, No Gallop Gastrointestinal: Normal Bowel Sounds, Non Tender, Soft Back: No CVA Tenderness Extremity: Pedal Edema Neurologic/Psychiatric: Alert, Motor Weakness (Lower legs) Skin: Pallor, Other (Sacral decubitus ulcer as described by Dr. Ross and a right medial pressure ulcer on the heel) Lymphatic: No Adenopathy Results/Procedures Lab Laboratory Tests 06/10/17 12:40 06/11/17 03:45 Assessment/Plan Assessment and Plan Assess & Plan/Chief Complaint 1. Septic shock- resolving etiology either from sacral decubitus ulcer or urine with Proteus beginning to grow. Patient has had aggressive IV fluid replacement. And has been stabilizing. 2. Multiples sclerosis not ambulatory 3. History of congestive heart failure with an ejection fraction of 25-35 percent. Currently just barely normotensive intolerant of salomón inhibitors or ARB 's at this time. 4. Anemia possibly of chronic disease will check a Hemoccult stool-patient has been on iron replacement 5. History of DVT on Zarrella toe currently being held because of a 2 g drop in hemoglobin. 6. Sacral decubitus surgical consult pending wound care on Tuesday. 7. Hypokalemia being replaced 8. Hypomagnesemia being replaced 9. Chronic pain issues-currently being managed with Neurontin and hydrocodone Ultram and try cyclics. Currently on hold because of the decreased responsive state yesterday will try and restart them judiciously. 10. Type II diabetes on insulin, will add Accu-Cheks. Very complex patient with review of old records necessitating about 45 minutes of research today since patient is such a poor historian. Critical Care: Critically Ill Patient Time spent with patient (mins): 20 minutes DONOVAN CARTER MD Jun 11, 2017 10:03
[2017-06-11] MEDS: GABAPENTIN 300 MG (NEURONTIN) CAP PO SCH ×2 (12:34→21:18)
[2017-06-11] MEDS: HYDROCORTISONE 100 MG/2 ML (Solu-CORTEF) VIAL IV SCH ×2 (13:00→21:20)
--- NOTE | 2017-06-11 15:04 | Consultation ---
History of Present Illness History of Present Illness Patient Consulted On(adarsh/time) 06/11/17 14:59 Time Seen by Provider: 14:36 History of Present Illness Surgery asked to consult regarding Stage IV Decub, ?? need for debridement or VAC. HPI: pt was admitted last night for sepsis, probably due to UTI. She is improved today, laying in bed comfortably. She denies abdominal pain, has minimal pain at decub. She states that she has been getting wound care in [place] for this. She does not remember coming here. Pt has multiple medical problems. Allergies and Home Medications Allergies Coded Allergies: No Known Drug Allergies (Unverified , 02/28/17) Home Medications Alprazolam 0.5 Mg Tablet, 0.25-1 MG PO QID PRN for ANXIETY TAKES 1/2 TO 2 (0.5MG) TABLETS Prescribed by: NEGRA WINCHESTER on 03/08/17932 Baclofen 10 Mg Tablet, 10 MG PO TID, (Reported) Biotin 2,500 Mcg Capsule, 5,000 MCG PO DAILY, (Reported) Carvedilol 3.125 Mg Tablet, 3.125 MG PO BID Prescribed by: NEGRA WINCHESTER on 03/08/17916 Cetirizine HCl 10 Mg Tablet, 10 MG PO DAILY, (Reported) Cholecalciferol (Vitamin D3) 2,000 Unit Capsule, 2,000 UNIT PO DAILY, (Reported) Cranberry Extract 500 Mg Capsule, 500 MG PO DAILY, (Reported) Darifenacin Hydrobromide 15 Mg Tab.er.24h, 15 MG PO DAILY, (Reported) Ferrous Sulfate 325 Mg Tablet, 325 MG PO BID, (Reported) Folic Acid 1 Mg Tablet, 1 MG PO DAILY, (Reported) Gabapentin 300 Mg Capsule, 300 MG PO TID, (Reported) Gentamicin Sulfate 30 Gm Oint...g., TP DAILY, (Reported) Hydrocodone/Acetaminophen 1 Each Tablet, 1 TAB PO TID PRN for PAIN-MODERATE Prescribed by: NEGRA WINCHESTER on 03/08/17932 Insulin Glargine,Hum.rec.anlog 100 Unit/1 Ml Vial, 15 UNIT SQ HS, (Reported) Lidocaine HCl 6 Ml Jel.pf.simone, TOP HS, (Reported) Menthol/Lanolin/Calamine/Znox 71 Gm Oint, TP QID, (Reported) Multivitamin with Minerals 1 Each Tablet, 1 TAB PO DAILY, (Reported) Naloxegol Oxalate 25 Mg Tablet, 25 MG PO DAILY, (Reported) Nortriptyline HCl 25 Mg Capsule, 50 MG PO HS, (Reported) TAKES 2 (25MG) CAPSULES Ondansetron HCl 8 Mg Tablet, 8 MG PO QID PRN for NAUSEA/VOMITING-1ST LINE, ( Reported) Pantoprazole Sodium 40 Mg Tablet.dr, 40 MG PO DAILY, (Reported) Polyethylene Glycol 3350 17 Gm Powd.pack, 17 GM PO DAILY PRN for CONSTIPATION- 2ND LINE, (Reported) Potassium Chloride 10 Meq Tab.er.prt, 20 MEQ PO BID, (Reported) TAKES 2 (10MEQ) TABLETS Rivaroxaban 20 Mg Tablet, 20 MG PO DAILY, (Reported) Sennosides/Docusate Sodium 1 Each Tablet, 1 TAB PO BID, (Reported) Tramadol HCl 50 Mg Tablet, 50-100 MG PO QID PRN for PAIN-MODERATE Prescribed by: NEGRA WINCHESTER on 03/08/17 0933 Trazodone HCl 50 Mg Tablet, 50 MG PO HS, (Reported) Trimethoprim 100 Mg Tablet, 100 MG PO HS, (Reported) Patient Home Medication List Home Medication List Reviewed: Yes Past Qpcwacf-Cysqeb-Jdgmby Hx Patient Social History Alcohol Use: Occasionally Uses Number of Drinks Today: 0 Recreational Drug Use: No Smoking Status: Unknown if Ever Smoked Recent Foreign Travel: No Contact w/Someone Who Travel: No Recent Infectious Disease Expo: No Physical Abuse Screen: No Sexual Abuse: No Immunizations Up To Date Tetanus Booster (TDap): Unknown Seasonal Allergies Seasonal Allergies: No Surgeries History of Surgeries: No Respiratory History of Respiratory Disorde: Yes Respiratory Disorders: Pulmonary Embolism, COPD Cardiovascular History of Cardiac Disorders: Yes Cardiac Disorders: Deep Vein Thrombosis, Hypotension Neurological History of Neurological Disord: Yes Neurological Disorders: Multiple Sclerosis Genitourinary History of Genitourinary Disor: Yes Genitourinary Disorders: Renal Failure, UTI-Chronic Gastrointestinal History of Gastrointestinal Di: Yes Gastrointestinal Disorders: Hiatal Hernia Musculoskeletal History of Musculoskeletal Dis: No Endocrine History of Endocrine Disorders: Yes Endocrine Disorders: Diabetes, Non-Insulin dep HEENT History of HEENT Disorders: No Cancer History of Cancer: No Psychosocial History of Psychiatric Problem: Yes Behavioral Health Disorders: Sleep Difficulties, Anxiety, Depression Integumentary History of Skin or Integumenta: Yes (sacral wound/ulcer, rash under breasts) Blood Transfusions History of Blood Disorders: No Adverse Reaction to a Blood Tr: No Reviewed Nursing Assessment Reviewed/Agree w Nursing PMH: Yes Family Medical History Significant Family History: Hypertension (states her father does not have Hypertension), Other Conditions/Hx (she does not know if her family members have any medical problems) Family Medial History: Review of Systems-General Constitutional: chills, malaise, weakness EENTM: hearing loss, vision loss, No epistaxis, No throat swelling Respiratory: No cough, No dyspnea on exertion, No hemoptysis Cardiovascular: No chest pain, No edema Gastrointestinal: diarrhea, No hematemesis, No melena Genitourinary: dysuria, frequency, hesitancy, incontinence Skin: No change in color, No change in hair/nails Psychiatric/Neurological: Anxiety, Depressed, Pre-Existing Deficit (multiple sclerosis) Physical Exam-General Problems Physical Exam Vital Signs Vital Signs - First Documented 06/10/17 06/10/17 12:40 19:04 Temp 98.1 Pulse 107 Resp 12 B/P (MAP) 72/33 (46) Pulse Ox 97 O2 Delivery OxyMask FiO2 21 Capillary Refill : Less Than 3 Seconds General Appearance: mild distress, obese Eyes: Bilateral Eye PERRL, Bilateral Eye Abnormal EOM HEENT: pharynx normal, No scleral icterus (R), No scleral icterus (L), other ( poor dentition) Respiratory: lungs clear, normal breath sounds, no respiratory distress, no accessory muscle use Cardiovascular: no murmur, tachycardia Gastrointestinal: soft, no organomegaly, no pulsatile mass Back: no CVA tenderness, no vertebral tenderness Extremities: no pedal edema, no calf tenderness Neurologic/Psychiatric: thaw shed heater tender II-XII nml as tested, alert (oriented to name and place) Skin: normal color, warm/dry, other (Stage IV sacral decub, no obvious necrotic tissue...but some dusky) Data Review Labs Laboratory Tests 06/10/17 15:10: Blood Gas Puncture Site LEFT RADIAL, Blood Gas Patient Temperature 100.4, Arterial Blood pH 7.37, Arterial Blood Partial Pressure CO2 43, Arterial Blood Partial Pressure O2 175H, Arterial Blood HCO3 24, Arterial Blood Total CO2 25.4 , Arterial Blood Oxygen Saturation 99, Arterial Blood Base Excess -0.2, Armani Test POSITIVE, Blood Gas Ventilator Setting NO, Blood Gas Inspired Oxygen 3L 06/11/17 03:45: White Blood Count 18.2H, Red Blood Count 2.98L, Hemoglobin 7.6L, Hematocrit 24L , Mean Corpuscular Volume 81, Mean Corpuscular Hemoglobin 26, Mean Corpuscular Hemoglobin Concent 31L, Red Cell Distribution Width 14.8H, Platelet Count 311, Mean Platelet Volume 10.1, Neutrophils (%) (Auto) 86H, Lymphocytes (%) (Auto) 9L , Monocytes (%) (Auto) 5, Eosinophils (%) (Auto) 0, Basophils (%) (Auto) 0, Neutrophils # (Auto) 15.7H, Lymphocytes # (Auto) 1.6, Monocytes # (Auto) 0.8, Eosinophils # (Auto) 0.0, Basophils # (Auto) 0.0, Sodium Level 142, Potassium Level 2.4#*L, Chloride Level 106, Carbon Dioxide Level 24, Anion Gap 12, Blood Urea Nitrogen 18, Creatinine 0.63, Estimat Glomerular Filtration Rate > 60, BUN/ Creatinine Ratio 29, Glucose Level 150H, Calcium Level 7.8L, Phosphorus Level 2.1L, Magnesium Level 1.4L, Total Bilirubin 0.6, Aspartate Amino Transf (AST/ SGOT) 19, Alanine Aminotransferase (ALT/SGPT) 16, Alkaline Phosphatase 116, Total Protein 6.2L, Albumin 2.6L 06/11/17 10:22: Stool Occult Blood Immunoassay POSITIVEH 06/11/17 11:20: Potassium Level 2.8L Microbiology 06/10/17 Blood Culture - Preliminary, Resulted No growth 06/10/17 Urine Culture - Preliminary, Resulted Proteus mirabilis Assessment/Plan Assessment/Plan Assessment/Plan Sepsis UTI Stage IV Sacral decub DM, ESRD, Multiple sclerosis Plan is [facility]. Pt is more stable now after starting fluids, IV ABX. She needs a wound VAC placed, does have some undermining possible tunneling at decub. Will not need any debridement at this time. I will place the VAC myself either later today or tomorrow am. Clinical Quality Measures DVT/VTE Risk/Contraindication: Risk Factor Score Per Nursin RFS Level Per Nursing on Admit: 4+=Very High Contraindications-Pharm: Other *list below* Other: gi bleeding KENIA TATUM DO Jun 11, 2017 15:04
[2017-06-11] MEDS: FERROUS SULF 325 MG (IRON) TAB PO SCH (18:10)
[2017-06-11 18:53] LABS: BUN/CREATININE RATIO 25; CALCIUM 7.7 MG/DL (8.5-10.1); CARBON DIOXIDE 24 MMOL/L (21-32); CHLORIDE 106 MMOL/L (98-107); CREATININE SERUM 0.56 MG/DL (0.60-1.30); GFR ESTIMATED > 60; GLUCOSE 201 MG/DL (70-105); MAGNESIUM 1.6 MG/DL (1.8-2.4); POTASSIUM 2.8 MMOL/L (3.6-5.0); SODIUM 140 MMOL/L (135-145)
[2017-06-11] MEDS ORDERED: NON-FORMULARY MEDICATION 1 EA EA (Insulin Glargine,Hum.rec.anlog (Lantus) 15 UNIT) SQ SCH (21:00)
[2017-06-11] MEDS: traZODone 50 MG (DESYREL) TAB PO SCH (21:18)
[2017-06-11] MEDS: NORTRIPTYLINE 25 MG (PAMELOR) CAP PO SCH (21:18)
[2017-06-11] MEDS: SENNA W/DOCUSATE (SENOKOT S) TABLET PO SCH (21:18)
[2017-06-11] MEDS: inSUlin DETERMIR 1 UNIT/0.01 ML (LEVEMIR) CHARGE PER UNIT SQ SCH (21:25)
[2017-06-11] MEDS ORDERED: KCL 20 MEQ POWDER FOR ORAL SOLUTION PO ONE (22:30)
[2017-06-11] MEDS: POTASSIUM CL 10 MEQ/50 ML IVPB (PRE-MIX) IV SCH (23:48)
[2017-06-12] VITALS (13 sets, daily range): BP systolic 87–121; BP diastolic 58–82
[2017-06-12] MEDS: POTASSIUM CL 10 MEQ/50 ML IVPB (PRE-MIX) IV SCH (00:27)
[2017-06-12] MEDS: RT-ALBUTEROL/IPRATROPIUM 3 ML (DUONEB) VIAL INH SCH ×4 (03:07→22:27)
[2017-06-12 04:06] LABS: BASOPHILS % (AUTO) 0 % (0-10); EOSINOPHILS % (AUTO) 0 % (0-10); HEMATOCRIT 23 % (35-52); HEMOGLOBIN 7.3 G/DL (11.5-16.0); LYMPHOCYTES # (AUTO) 1.2 X 10^3 (1.0-4.0); LYMPHOCYTES % (AUTO) 11 % (12-44); MEAN CORPUSCULAR HEMOGLOBIN 26 PG (25-34); MEAN CORPUSCULAR HGB CONC 32 G/DL (32-36); MEAN CORPUSCULAR VOLUME 80 FL (80-99); MEAN PLATELET VOLUME 10.5 FL (7.4-10.4); MONOCYTES # (AUTO) 0.3 X 10^3 (0.0-1.0); MONOCYTES % (AUTO) 3 % (0-12); NEUTROPHILS # (AUTO) 9.6 X 10^3 (1.8-7.8); NEUTROPHILS % (AUTO) 86 % (42-75); PLATELET COUNT 252 10^3/uL (130-400); RED BLOOD COUNT 2.85 10^6/uL (4.35-5.85); RED CELL DISTRIBUTION WIDTH 14.9 % (10.0-14.5); WHITE BLOOD COUNT 11.1 10^3/uL (4.3-11.0)
[2017-06-12 04:25] LABS: ALANINE AMINOTRANSFERASE 18 U/L (0-55); ALBUMIN 2.7 GM/DL (3.2-4.5); ALKALINE PHOSPHATASE 90 U/L (40-136); BILIRUBIN,TOTAL 0.5 MG/DL (0.1-1.0); BUN/CREATININE RATIO 20; CALCIUM 7.6 MG/DL (8.5-10.1); CARBON DIOXIDE 25 MMOL/L (21-32); CHLORIDE 106 MMOL/L (98-107); CREATININE SERUM 0.59 MG/DL (0.60-1.30); GFR ESTIMATED > 60; GLUCOSE 224 MG/DL (70-105); PHOSPHORUS 1.7 MG/DL (2.3-4.7); POTASSIUM 2.7 MMOL/L (3.6-5.0); SODIUM 141 MMOL/L (135-145); TOTAL PROTEIN 6.2 GM/DL (6.4-8.2)
--- OUTSIDE RECORDS SUMMARY | 2017-06-12 04:27 | XMS REPORT | Continuity of Care Document ---
Author Author [facility] Address Unknown Phone Unavailable Allergies There is no data. Medications There is no data. Problems Date Dx Coded Attending Type Code Diagnosis Diagnosed By 07/03/2014 SY PADRON DO 682.9 CELLULITIS AND ABSCESS OF UNSPECIFIED SITES 07/03/2014 SY PADRON DO 692.9 CONTACT DERMATITIS AND OTHER ECZEMA UNSPECIFIED CAUSE Procedures There is no data. Results There is no data. Encounters ACCT No. Visit Date/Time Discharge Status Pt. Type Provider Facility Loc./Unit Complaint [id number] 07/03/2014 11:03:00 07/03/2014 23:59:59 [facility] Outpatient SY PADRON DO [id number] 01/24/2017 17:11:53 01/24/2017 23:59:59 [facility] Outpatient Hector Cano [id number] 01/20/2017 16:07:27 01/20/2017 23:59:59 BILL Outpatient Hector Cano
[2017-06-12] MEDS: NS IV 1000 ML 1,000 ML IV SCH (04:49)
[2017-06-12] MEDS: POTASSIUM CL 10MEQ/50ML IVPB 50 ML IV SCH ×3 (04:58→06:14)
--- OUTSIDE RECORDS SUMMARY | 2017-06-12 04:58 | XMS REPORT | Continuity of Care Document ---
Author Author [facility] Address Unknown Phone Unavailable Allergies There is [...] Status Pt. Type Provider Facility Loc./Unit Complaint [id number] 07/03/2014 11:03:00 07/03/2014 23:59:59 [facility] Outpatient SY PADRON DO [id number] 01/24/2017 17:11:53 01/24/2017 23:59:59 [facility] Outpatient Hector Cano [id number] 01/20/2017 16:07:27 01/20/2017 23:59:59 BILL Outpatient Hector Cano
[2017-06-12] MEDS: PIPERACILLIN SODIUM/TAZOBACTAM 4.5 GM in NS (IVPB) 100 ML IV SCH ×3 (04:59→21:41)
[2017-06-12] MEDS ORDERED: KCL 20 MEQ POWDER FOR ORAL SOLUTION PO ONE (05:00)
[2017-06-12] MEDS: PANTOPRAZOLE 40 MG (PROTONIX) TAB PO SCH (05:46)
[2017-06-12] MEDS: KCL 20 MEQ TAB (K-DUR) PO SCH ×4 (05:47→18:30)
[2017-06-12] MEDS: MAGNESIUM 1 GM/100 ML IVPB 100 ML IV SCH (05:47)
[2017-06-12] MEDS: HYDROCORTISONE 100 MG/2 ML (Solu-CORTEF) VIAL IV SCH (05:47)
[2017-06-12] MEDS: FERROUS SULF 325 MG (IRON) TAB PO SCH ×2 (06:17→18:30)
[2017-06-12] MEDS ORDERED: POT PHOS/NA PHOS (K-PHOS NEUTRAL) PO NR ×2 (07:00)
[2017-06-12] MEDS ORDERED: POT PHOS/NA PHOS (K-PHOS NEUTRAL) ONE (07:02)
[2017-06-12] MEDS: SENNA W/DOCUSATE (SENOKOT S) TABLET PO SCH ×2 (08:41→21:42)
[2017-06-12] MEDS: NOREPINEPHRINE 4 MG in NS (IVPB) 250 ML IV SCH (08:42)
--- NOTE | 2017-06-12 10:01 | Diagnostic Imaging Report ---
EXAM: CHEST 1 VIEW, AP/PA ONLY INDICATION: Dyspnea. COMPARISON: Chest radiograph 06/11/2017. FINDINGS: Stable cardiomegaly and mild pulmonary venous congestion. Low lung volumes and elevation of the right hemidiaphragm. Mild atelectasis or infiltrate in the medial right lung base. No pleural effusion. No pneumothorax. Right IJ CVC tip near the RA SVC junction. No acute osseous findings. IMPRESSION: 1. Stable cardiomegaly and pulmonary venous congestion. 2. Mild atelectasis in the right lung base low lung volumes and elevation of right hemidiaphragm. Pneumonitis cannot be entirely excluded. 3. Right IJ CVC tip near the RA SVC junction. Dictated by: Dictated on workstation # [id number]
[2017-06-12] MEDS: GABAPENTIN 300 MG (NEURONTIN) CAP PO SCH ×3 (10:17→21:42)
[2017-06-12] MEDS: FOLIC ACID 1 MG TAB PO SCH (10:17)
--- NOTE | 2017-06-12 10:25 | Progress Note-Hospitalist ---
Subjective HPI/CC On Admission Date Seen by Provider: Jun 12, 2017 Time Seen by Provider: 09:30 52 yo wf with MS presents with hypotension and decreased mental status. Pt at the time of my interview, is w/o complaint. Evaluation is c/w severe sepsis Subjective/Events-last exam Patient is awake and alert. She had a big bowel movement and seemed to be somewhat relieved by that. Blood pressure remains labile but I suspect this is her chronic state. It has responded well to IV hydrocortisone and there is a good chance that she is adrenal insufficient. Serum cortisol is pending at this time although was a random draw. She is currently improved and stable for transfer to the floor. She has no new complaints. Review of Systems Neurological: Weakness Objective Exam Vital Signs Vital Signs Date Time Temp Pulse Resp B/P (MAP) Pulse Ox O2 Delivery O2 Flow Rate FiO2 06/10/17 12:40 98.1 107 12 72/33 (46) 97 06/10/17 12:40 OxyMask 06/10/17 19:04 21 Capillary Refill : Less Than 3 Seconds General Appearance: Chronically ill HEENT: Other (Carious teeth) Neck: Limited Range of Motion Respiratory: No Accessory Muscle Use, No Respiratory Distress, Crackles Cardiovascular: Regular Rate, Rhythm, No Gallop Gastrointestinal: Non Tender, Soft Extremity: Pedal Edema Neurologic/Psychiatric: Alert, Normal Mood/Affect Skin: Pallor Results/Procedures Lab Laboratory Tests 06/11/17 11:20 06/11/17 18:26 06/11/17 21:30 06/12/17 03:58 Assessment/Plan Assessment and Plan Assess & Plan/Chief Complaint 1. Septic shock- resolving etiology either from sacral decubitus ulcer or urine with Proteus greater than 10 to the fifth beginning to grow. Patient has had aggressive IV fluid replacement. Will Hep-Lock at this time she has responded well to IV hydrocortisone and this will be considered continued as an oral dose pending results of a random serum cortisol 2. Multiples sclerosis not ambulatory 3. History of congestive heart failure with an ejection fraction of 25-35 percent. Currently just barely normotensive intolerant of salomón inhibitors or ARB 's at this time. 4. Anemia possibly of chronic disease, Hemoccult stool positive-patient has been on iron replacement-we'll continue however this makes Lovenox contraindicated 5. History of DVT on Xarelto currently being held because of a 2 g drop in hemoglobin with Hemoccult positive stools. Patient may require upper endoscopy or colonoscopy if she has not had recently 6. Sacral decubitus surgical consult pending wound care on Tuesday. 7. Hypokalemia being replaced aggressively 8. Hypomagnesemia being replaced 9. Chronic pain issues-currently being managed with Neurontin and hydrocodone Ultram and try cyclics. Currently on hold because of the decreased responsive state yesterday will try and restart them judiciously. 10. Type II diabetes on insulin, will add Accu-Cheks. Patient is stable for transfer to the floor Critical Care: Critically Ill Patient Time spent with patient (mins): 30 DONOVAN CARTER MD Jun 12, 2017 10:25
[2017-06-12 10:56] LABS: MAGNESIUM 1.9 MG/DL (1.8-2.4); POTASSIUM 3.6 MMOL/L (3.6-5.0)
--- NOTE | 2017-06-12 13:03 | Progress Note ---
Subjective Time Seen by Provider: 12:32 Subjective/Events-last exam Pt seen examined, denies abdominal pain. Tolerating diet with normal bowel movements. Review of Systems General: No Chills, No Night Sweats Pulmonary: No Dyspnea, No Cough Cardiovascular: No: Chest Pain Gastrointestinal: No: Nausea, Vomiting, Abdominal Pain Objective Exam Vital Signs Date Time Temp Pulse Resp B/P (MAP) Pulse Ox O2 Delivery O2 Flow Rate FiO2 06/12/17 10:00 97.4 06/12/17 09:17 97 Room Air 06/12/17 09:00 95 11 87/58 (68) 93 Room Air 06/12/17 08:00 100 15 93/63 (73) 94 Room Air 06/12/17 07:00 98 06/12/17 07:00 98 10 89/59 (69) 94 Room Air 06/12/17 06:00 105 22 98/64 (75) 96 Room Air 06/12/17 05:00 105 15 121/82 (95) 94 Room Air 06/12/17 04:00 105 14 119/80 (93) 93 Room Air 06/12/17 04:00 95 Room Air 06/12/17 04:00 98.6 06/12/17 03:07 94 Room Air 06/12/17 03:00 103 17 115/76 (89) 99 Room Air 06/12/17 02:00 103 17 115/76 (89) 99 Room Air 06/12/17 01:00 108 06/12/17 01:00 104 06/12/17 01:00 107 15 117/79 (92) 94 Room Air 06/12/17 01:00 107 15 117/79 (92) 94 Room Air 06/12/17 00:00 98.5 109 15 110/77 (88) 95 Room Air 06/12/17 00:00 95 Room Air 06/11/17 23:00 108 14 110/76 (87) 93 Room Air 06/11/17 22:00 107 17 113/77 (89) 95 Room Air 06/11/17 21:00 103 14 116/77 (90) 93 Room Air 06/11/17 20:11 95 Room Air 06/11/17 20:00 98.8 106 14 118/77 (91) 95 Room Air 06/11/17 20:00 95 Room Air 06/11/17 19:00 104 14 116/78 (91) 95 Room Air 06/11/17 18:00 105 12 116/78 (91) 95 Room Air 06/11/17 17:00 101 13 112/76 (88) 95 Room Air 06/11/17 16:30 97 Room Air 06/11/17 16:00 98 14 108/74 (85) 96 Room Air 06/11/17 15:00 106 13 104/75 (85) 95 Room Air 06/11/17 14:33 Room Air 06/11/17 14:00 106 13 89/47 (61) 95 Room Air 06/11/17 13:00 108 06/11/17 13:00 105 16 93/63 (73) 95 Room Air I & O 06/12/17 07:00 Intake Total 7250 ml Output Total 3900 ml Balance 3350 ml Capillary Refill : Less Than 3 Seconds General Appearance: No Apparent Distress, Chronically ill HEENT: Moist Mucous Membranes, Other (Carious teeth) Neck: Limited Range of Motion Respiratory: No Accessory Muscle Use, No Respiratory Distress, Crackles Cardiovascular: Regular Rate, Rhythm, No Gallop Gastrointestinal: soft, no organomegaly, no pulsatile mass Extremity: Pedal Edema Neurologic/Psychiatric: Alert, Normal Mood/Affect Skin: Pallor Lymphatic: No Adenopathy Results Lab Laboratory Tests 06/11/17 18:26: Sodium Level 140, Potassium Level 2.8L, Chloride Level 106, Carbon Dioxide Level 24, Anion Gap 10, Blood Urea Nitrogen 14, Creatinine 0.56L, Estimat Glomerular Filtration Rate > 60, BUN/Creatinine Ratio 25, Glucose Level 201H, Calcium Level 7.7L, Magnesium Level 1.6L 06/11/17 21:22: Glucometer 245H 06/11/17 21:30: Potassium Level 2.4*L 06/12/17 03:58: Sodium Level 141, Potassium Level 2.7L, Chloride Level 106, Carbon Dioxide Level 25, Anion Gap 10, Blood Urea Nitrogen 12, Creatinine 0.59L, Estimat Glomerular Filtration Rate > 60, BUN/Creatinine Ratio 20, Glucose Level 224H, Calcium Level 7.6L, Magnesium Level 2.0, White Blood Count 11.1H, Red Blood Count 2.85L, Hemoglobin 7.3L, Hematocrit 23L, Mean Corpuscular Volume 80, Mean Corpuscular Hemoglobin 26, Mean Corpuscular Hemoglobin Concent 32, Red Cell Distribution Width 14.9H, Platelet Count 252, Mean Platelet Volume 10.5H, Neutrophils (%) (Auto) 86H, Lymphocytes (%) (Auto) 11L, Monocytes (%) (Auto) 3, Eosinophils (%) (Auto) 0, Basophils (%) (Auto) 0, Neutrophils # (Auto) 9.6H, Lymphocytes # (Auto) 1.2, Monocytes # (Auto) 0.3, Eosinophils # (Auto) 0.0, Basophils # (Auto) 0.0, Phosphorus Level 1.7L, Total Bilirubin 0.5, Aspartate Amino Transf (AST/SGOT) 18, Alanine Aminotransferase (ALT/SGPT) 18, Alkaline Phosphatase 90, Total Protein 6.2L, Albumin 2.7L 06/12/17 10:28: Potassium Level 3.6, Glucose Level 214H, Magnesium Level 1.9 Microbiology 06/10/17 Blood Culture - Preliminary, Resulted No growth 06/10/17 MRSA Screen - Final, Complete MRSA not isolated 06/10/17 Urine Culture - Preliminary, Resulted Proteus mirabilis Probable E.coli See Comments Assessment/Plan Assessment/Plan Assessment/Plan Anemia with Hemoccult positive - pt needs colonoscopy as an outpt (she has never had one) Sepsis - improving, still has low BP UTI - currently getting ABX Stage IV Sacral decub -just placed Wound VAC DM, ESRD, Multiple sclerosis Plan is [facility] and she appears stable enough to transfer out of ICU. Continue fluids, IV ABX, and increase diet as tolerated. Clinical Quality Measures DVT/VTE Risk/Contraindication: Risk Factor Score Per Nursin RFS Level Per Nursing on Admit: 4+=Very High Contraindications-Pharm: Other *list below* Other: gi bleeding KENIA TATUM DO Jun 12, 2017 13:03
--- NOTE | 2017-06-12 13:11 | Procedure/Intervention Note ---
Procedure Note Vital Signs Vital Signs Date Time Temp Pulse Resp B/P (MAP) Pulse Ox O2 Delivery O2 Flow Rate FiO2 06/12/17 10:00 97.4 06/12/17 09:17 97 Room Air 06/12/17 09:00 95 11 87/58 (68) 06/10/17 19:04 21 Procedure Note Pt has Stage IV Sacral Decub with undermining and possibly tunneling. Skin opening is appx 3-4 cm; with circumferential undermining of at least 2-3cm and appears to have tunneling towards left hip of another 3-4 cm. The area was cleaned and dried and a piece of black foam was placed under skin, appx 6x10cm. This was then covered with tegaderm and placed more tegaderm to create a bridge so that suction tubing was more out toward hip and she wouldn't lay on it. Placed more black foam and then covered this with tegaderm. Cut hole in bridging foam almost out toward hip. Then placed VAC disc and hooked it up to wound VAC. Black foam bridging suctioned flat and carried down to foam in decub. VAC was set to -125mm Hg, low intensity and continuous. No leak seen in VAC. Pt did not have any pain and tolerated procedure well. Would change wound VAC on Tuesday, Tuesday and then go to schedule. KENIA TATUM DO Jun 12, 2017 13:11
[2017-06-12] MEDS: NORTRIPTYLINE 25 MG (PAMELOR) CAP PO SCH (21:41)
[2017-06-12] MEDS: HYDROCORTISONE 20 MG (CORTEF) TAB PO SCH (21:42)
[2017-06-12] MEDS: traZODone 50 MG (DESYREL) TAB PO SCH (21:42)
[2017-06-12] MEDS: inSUlin DETERMIR 1 UNIT/0.01 ML (LEVEMIR) CHARGE PER UNIT SQ SCH (21:42)
[2017-06-13] VITALS (7 sets, daily range): BP systolic 110–118; BP diastolic 67–84
[2017-06-13] MEDS: RT-ALBUTEROL/IPRATROPIUM 3 ML (DUONEB) VIAL INH SCH ×2 (02:44→10:03)
[2017-06-13] MEDS: ALPRAZolam 0.5 MG (XANAX) TAB PO PRN ×2 (04:15→20:36)
[2017-06-13] MEDS: PIPERACILLIN SODIUM/TAZOBACTAM 4.5 GM in NS (IVPB) 100 ML IV SCH (04:32)
[2017-06-13 05:00] LABS: BASOPHILS % (AUTO) 0 % (0-10); EOSINOPHILS % (AUTO) 0 % (0-10); HEMATOCRIT 23 % (35-52); HEMOGLOBIN 7.2 G/DL (11.5-16.0); LYMPHOCYTES # (AUTO) 2.3 X 10^3 (1.0-4.0); LYMPHOCYTES % (AUTO) 16 % (12-44); MEAN CORPUSCULAR HEMOGLOBIN 25 PG (25-34); MEAN CORPUSCULAR HGB CONC 31 G/DL (32-36); MEAN CORPUSCULAR VOLUME 80 FL (80-99); MEAN PLATELET VOLUME 11.3 FL (7.4-10.4); MONOCYTES # (AUTO) 0.8 X 10^3 (0.0-1.0); MONOCYTES % (AUTO) 6 % (0-12); NEUTROPHILS # (AUTO) 11.6 X 10^3 (1.8-7.8); NEUTROPHILS % (AUTO) 79 % (42-75); PLATELET COUNT 292 10^3/uL (130-400); RED BLOOD COUNT 2.86 10^6/uL (4.35-5.85); RED CELL DISTRIBUTION WIDTH 14.9 % (10.0-14.5); WHITE BLOOD COUNT 14.8 10^3/uL (4.3-11.0)
[2017-06-13 05:11] LABS: BUN/CREATININE RATIO 25; CALCIUM 7.4 MG/DL (8.5-10.1); CARBON DIOXIDE 24 MMOL/L (21-32); CHLORIDE 99 MMOL/L (98-107); CREATININE SERUM 0.52 MG/DL (0.60-1.30); GFR ESTIMATED > 60; GLUCOSE 233 MG/DL (70-105); MAGNESIUM 1.6 MG/DL (1.8-2.4); SODIUM 133 MMOL/L (135-145)
[2017-06-13] MEDS: FERROUS SULF 325 MG (IRON) TAB PO SCH ×2 (06:18→16:58)
[2017-06-13] MEDS: PANTOPRAZOLE 40 MG (PROTONIX) TAB PO SCH (06:18)
[2017-06-13] MEDS: KCL 20 MEQ TAB (K-DUR) PO SCH ×3 (06:19→16:58)
[2017-06-13] MEDS: FOLIC ACID 1 MG TAB PO SCH (08:27)
[2017-06-13] MEDS: GABAPENTIN 300 MG (NEURONTIN) CAP PO SCH ×3 (08:28→20:36)
[2017-06-13] MEDS: SENNA W/DOCUSATE (SENOKOT S) TABLET PO SCH ×2 (08:29→19:31)
[2017-06-13] MEDS ORDERED: MAGNESIUM 1 GM/100 ML IVPB 100 ML IV NR (09:00)
--- NOTE | 2017-06-13 09:01 | Progress Note (SOAP) ---
Subjective Time Seen by Provider: 09:00 Subjective/Events-last exam patient is awake. Patient is talking. Patient feeling better. But hurts Objective Exam Vital Signs Date Time Temp Pulse Resp B/P (MAP) Pulse Ox O2 Delivery O2 Flow Rate FiO2 06/13/17 08:46 Room Air 06/13/17 04:41 98.7 114 17 118/84 (95) 96 Room Air 06/13/17 02:44 94 Room Air 06/13/17 00:15 98.4 110 17 110/72 (85) 96 Room Air 06/12/17 20:55 97 Room Air 06/12/17 20:50 99.0 109 18 116/68 (84) 96 Room Air 06/12/17 17:30 99.3 109 18 117/76 (90) 96 Room Air 06/12/17 15:30 98 Room Air 06/12/17 13:00 97.6 06/12/17 12:50 97 Room Air 06/12/17 12:00 106 17 110/81 (91) 99 Room Air 06/12/17 10:00 97.4 06/12/17 09:17 97 Room Air 06/12/17 09:00 95 11 87/58 (68) 93 Room Air I & O 06/13/17 07:00 Intake Total 2840 ml Output Total 725 ml Balance 2115 ml Capillary Refill : Less Than 3 Seconds General Appearance: No Apparent Distress, Thin HEENT: Normal ENT Inspection Respiratory: No Accessory Muscle Use, No Respiratory Distress Cardiovascular: Regular Rate, Rhythm, No Murmur Results Lab Laboratory Tests 06/12/17 10:28 06/13/17 04:42 Laboratory Tests 06/12/17 10:28: Potassium Level 3.6, Glucose Level 214H, Magnesium Level 1.9 06/12/17 20:58: Glucometer 308H 06/13/17 04:42: Potassium Level 3.0L, Glucose Level 233H, Magnesium Level 1.6L, White Blood Count 14.8H, Red Blood Count 2.86L, Hemoglobin 7.2L, Hematocrit 23L, Mean Corpuscular Volume 80, Mean Corpuscular Hemoglobin 25, Mean Corpuscular Hemoglobin Concent 31L, Red Cell Distribution Width 14.9H, Platelet Count 292, Mean Platelet Volume 11.3H, Neutrophils (%) (Auto) 79H, Lymphocytes (%) (Auto) 16, Monocytes (%) (Auto) 6, Eosinophils (%) (Auto) 0, Basophils (%) (Auto) 0, Neutrophils # (Auto) 11.6H, Lymphocytes # (Auto) 2.3, Monocytes # (Auto) 0.8, Eosinophils # (Auto) 0.0, Basophils # (Auto) 0.0, Sodium Level 133L, Chloride Level 99, Carbon Dioxide Level 24, Anion Gap 10, Blood Urea Nitrogen 13, Creatinine 0.52L, Estimat Glomerular Filtration Rate > 60, BUN/Creatinine Ratio 25, Calcium Level 7.4L Microbiology 06/10/17 Blood Culture - Preliminary, Resulted No growth 06/10/17 MRSA Screen - Final, Complete MRSA not isolated 06/10/17 Urine Culture - Final, Complete Proteus mirabilis Escherichia coli See Comments Assessment/Plan Assessment/Plan Assess & Plan/Chief Complaint sepsis. UTI. Hypomagnesemia. Hypokalemia. Decubiti. Anemia. Multiple sclerosis Clinical Quality Measures DVT/VTE Risk/Contraindication: Risk Factor Score Per Nursin RFS Level Per Nursing on Admit: 4+=Very High Contraindications-Pharm: Other *list below* Other: gi bleeding PORSCHE HAY DO Jun 13, 2017 09:01
[2017-06-13] MEDS: HYDROCORTISONE 20 MG (CORTEF) TAB PO SCH ×2 (09:52→20:37)
[2017-06-13] MEDS: MEROPENEM 500 MG in NS (IVPB) 100 ML IV SCH ×4 (09:52→23:45)
[2017-06-13] MEDS ORDERED: ACHD5005 PO (11:37)
[2017-06-13] MEDS ORDERED: NITR-68 PO (11:37)
[2017-06-13] MEDS ORDERED: ALPR0.5T PO (11:37)
[2017-06-13] MEDS ORDERED: FURO40TA4 PO (11:37)
[2017-06-13] MEDS: HYDROcodone/APAP 5 MG/325 MG (LORTAB) TAB PO PRN ×2 (12:14→16:58)
[2017-06-13] MEDS ORDERED: SULF1TAB34 PO (12:14)
[2017-06-13] MEDS ORDERED: ASCO-262 PO (12:14)
[2017-06-13] MEDS ORDERED: MIRA50TA PO (12:14)
[2017-06-13] MEDS: inSUlin DETERMIR 1 UNIT/0.01 ML (LEVEMIR) CHARGE PER UNIT SQ SCH (20:36)
[2017-06-13] MEDS: NORTRIPTYLINE 25 MG (PAMELOR) CAP PO SCH (20:36)
[2017-06-13] MEDS: traZODone 50 MG (DESYREL) TAB PO SCH (20:36)
[2017-06-14] VITALS: BP 108/74
[2017-06-14 04:00] VITALS: BP 120/68
[2017-06-14] MEDS: FERROUS SULF 325 MG (IRON) TAB PO SCH ×2 (05:43→17:34)
[2017-06-14] MEDS: MEROPENEM 500 MG in NS (IVPB) 100 ML IV SCH ×4 (05:43→23:50)
[2017-06-14] MEDS: PANTOPRAZOLE 40 MG (PROTONIX) TAB PO SCH (05:44)
[2017-06-14] MEDS: KCL 20 MEQ TAB (K-DUR) PO SCH ×3 (05:44→17:34)
[2017-06-14 05:58] LABS: BASOPHILS % (AUTO) 0 % (0-10); EOSINOPHILS % (AUTO) 0 % (0-10); HEMATOCRIT 25 % (35-52); HEMOGLOBIN 7.9 G/DL (11.5-16.0); LYMPHOCYTES # (AUTO) 2.6 X 10^3 (1.0-4.0); LYMPHOCYTES % (AUTO) 16 % (12-44); MEAN CORPUSCULAR HEMOGLOBIN 25 PG (25-34); MEAN CORPUSCULAR HGB CONC 31 G/DL (32-36); MEAN CORPUSCULAR VOLUME 81 FL (80-99); MEAN PLATELET VOLUME 11.7 FL (7.4-10.4); MONOCYTES # (AUTO) 1.1 X 10^3 (0.0-1.0); MONOCYTES % (AUTO) 7 % (0-12); NEUTROPHILS # (AUTO) 12.6 X 10^3 (1.8-7.8); NEUTROPHILS % (AUTO) 78 % (42-75); PLATELET COUNT 327 10^3/uL (130-400); RED BLOOD COUNT 3.13 10^6/uL (4.35-5.85); WHITE BLOOD COUNT 16.3 10^3/uL (4.3-11.0)
[2017-06-14 06:13] LABS: ALANINE AMINOTRANSFERASE 45 U/L (0-55); ALBUMIN 2.5 GM/DL (3.2-4.5); ALKALINE PHOSPHATASE 67 U/L (40-136); BILIRUBIN,TOTAL 0.4 MG/DL (0.1-1.0); BUN/CREATININE RATIO 24; CALCIUM 7.6 MG/DL (8.5-10.1); CARBON DIOXIDE 27 MMOL/L (21-32); CHLORIDE 102 MMOL/L (98-107); CREATININE SERUM 0.51 MG/DL (0.60-1.30); GFR ESTIMATED > 60; GLUCOSE 285 MG/DL (70-105); MAGNESIUM 1.9 MG/DL (1.8-2.4); POTASSIUM 4.7 MMOL/L (3.6-5.0); SODIUM 134 MMOL/L (135-145); TOTAL PROTEIN 5.6 GM/DL (6.4-8.2)
[2017-06-14] MEDS: HYDROcodone/APAP 5 MG/325 MG (LORTAB) TAB PO PRN (07:23)
[2017-06-14 08:00] VITALS: BP 110/69
--- NOTE | 2017-06-14 08:18 | Progress Note (SOAP) ---
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 SHE WAS ADMITTED WITH SEPSIS FROM UTI AND SACRAL ULCERS - SHE HAS MULTIPLE SCLEROSIS AND IS NON AMBULATORY. Objective Exam Vital Signs Date Time Temp Pulse Resp B/P (MAP) Pulse Ox O2 Delivery O2 Flow Rate FiO2 06/14/17 04:00 97.4 65 19 120/68 (85) 92 Room Air 06/14/17 00:25 97.5 06/14/17 00:00 95.0 99 16 108/74 (85) 92 Room Air 06/13/17 20:00 Room Air 06/13/17 19:51 94 Room Air 06/13/17 19:28 97.1 114 16 113/67 (82) 97 Room Air 06/13/17 16:00 97.5 108 18 116/78 (91) 96 Room Air 06/13/17 12:00 97.7 109 18 112/67 (82) 96 Room Air 06/13/17 10:03 94 Room Air 06/13/17 10:03 108 94 06/13/17 08:46 Room Air I & O 06/14/17 07:00 Intake Total 1780 ml Output Total 750 ml Balance 1030 ml Capillary Refill : Less Than 3 Seconds Results Lab Laboratory Tests 06/13/17 10:10: Glucometer 223H 06/13/17 20:30: Glucometer 339H 06/14/17 05:47: White Blood Count 16.3H, Red Blood Count 3.13L, Hemoglobin 7.9L, Hematocrit 25L , Mean Corpuscular Volume 81, Mean Corpuscular Hemoglobin 25, Mean Corpuscular Hemoglobin Concent 31L, Red Cell Distribution Width 15.0H, Platelet Count 327, Mean Platelet Volume 11.7H, Neutrophils (%) (Auto) 78H, Lymphocytes (%) (Auto) 16, Monocytes (%) (Auto) 7, Eosinophils (%) (Auto) 0, Basophils (%) (Auto) 0, Neutrophils # (Auto) 12.6H, Lymphocytes # (Auto) 2.6, Monocytes # (Auto) 1.1H, Eosinophils # (Auto) 0.0, Basophils # (Auto) 0.0, Sodium Level 134L, Potassium Level 4.7, Chloride Level 102, Carbon Dioxide Level 27, Anion Gap 5, Blood Urea Nitrogen 12, Creatinine 0.51L, Estimat Glomerular Filtration Rate > 60, BUN/ Creatinine Ratio 24, Glucose Level 285H, Calcium Level 7.6L, Magnesium Level 1.9 , Total Bilirubin 0.4, Aspartate Amino Transf (AST/SGOT) 30, Alanine Aminotransferase (ALT/SGPT) 45, Alkaline Phosphatase 67, Total Protein 5.6L, Albumin 2.5L Microbiology 06/10/17 Blood Culture - Preliminary, Resulted No growth 06/10/17 MRSA Screen - Final, Complete MRSA not isolated 06/10/17 Urine Culture - Final, Complete Proteus mirabilis Escherichia coli See Comments Assessment/Plan Assessment/Plan Assess & Plan/Chief Complaint SACRAL DECUBITUS ULCERS URINARY TRACT INFECTION - PROTEUS AND ENTEROCOCCUS - WITH MULTIPLE ANTIBIOTIC RESISTANCE PATTERN ON BOTH BACTERIUM\ MULTIPLE SCLEROSIS NONAMBULATORY STATUS ELEVATED BLOOD GLUCOSE DUE TO STEROIDS LEUKOCYTOSIS - (MEDICATION WELL INFECTION CAUSING ELEVATION) ANEMIA HX OF IRON DEFICIENCY SACRAL DECUBITUS ULCERS - CONTINUE WITH OFF LOADING - MAKE SURE PT IS ON LOW AIR LOSS MATTRESS - APPROPRIATE WOUND CARE - WILL CONSIDER WOUND CONSULT IF LESION IS NOT HEALING. URINARY TRACT INFECTION - PROTEUS AND ENTEROCOCCUS - WITH MULTIPLE ANTIBIOTIC RESISTANCE PATTERN ON BOTH BACTERIUM - PT ON MEROPENEM - SHOULD BE APPROPRIATE TREATMENT PER CULTURE REPORT. MULTIPLE SCLEROSIS - SUPPORTIVE CARE NONAMBULATORY STATUS - LOW AIR LOSS MATTRESS - WILL HAVE PT ASSESS HER WHEELCHAIR FOR POSSIBLE CUSHION CHANGE SHE HAS DECUBITUS SACRAL ULCER. ELEVATED BLOOD GLUCOSE DUE TO STEROIDS LEUKOCYTOSIS - (MEDICATION WELL INFECTION CAUSING ELEVATION) ANEMIA WITH HX OF IRON DEFICIENCY - CHECK IRON PANEL TODAY - WILL CHECK REPEAT CBC IN MORNING - AND IF HER IRON LEVEL IS PERSISTENTLY LOW - WILL GIVE IV INFED SHE HAS HISTORY OF GI BLEEDING AND ORAL IRON WILL EXACERBATE THIS ISSUE. Clinical Quality Measures DVT/VTE Risk/Contraindication: Risk Factor Score Per Nursin RFS Level Per Nursing on Admit: 4+=Very High Contraindications-Pharm: Other *list below* Other: gi bleeding SHADI RAMIREZ MD Jun 14, 2017 08:18
[2017-06-14] MEDS: FOLIC ACID 1 MG TAB PO SCH (08:52)
[2017-06-14] MEDS: GABAPENTIN 300 MG (NEURONTIN) CAP PO SCH ×3 (08:52→21:24)
[2017-06-14] MEDS: HYDROCORTISONE 20 MG (CORTEF) TAB PO SCH ×2 (08:53→21:24)
[2017-06-14] MEDS: SENNA W/DOCUSATE (SENOKOT S) TABLET PO SCH ×2 (08:53→19:29)
[2017-06-14] MEDS: ALPRAZolam 0.5 MG (XANAX) TAB PO PRN ×2 (12:46→21:26)
[2017-06-14 16:00] VITALS: BP 117/82
[2017-06-14] MEDS: traZODone 50 MG (DESYREL) TAB PO SCH (21:24)
[2017-06-14] MEDS: NORTRIPTYLINE 25 MG (PAMELOR) CAP PO SCH (21:24)
[2017-06-14] MEDS: inSUlin DETERMIR 1 UNIT/0.01 ML (LEVEMIR) CHARGE PER UNIT SQ SCH (21:25)
[2017-06-15] VITALS: BP 107/73
[2017-06-15] MEDS: FERROUS SULF 325 MG (IRON) TAB PO SCH (05:36)
[2017-06-15] MEDS: KCL 20 MEQ TAB (K-DUR) PO SCH ×2 (05:36→12:35)
[2017-06-15] MEDS: PANTOPRAZOLE 40 MG (PROTONIX) TAB PO SCH (05:36)
[2017-06-15] MEDS: MEROPENEM 500 MG in NS (IVPB) 100 ML IV SCH ×2 (05:37→12:36)
[2017-06-15 05:56] LABS: BASOPHILS # (AUTO) 0.1 10^3/uL (0.0-0.1); BASOPHILS % (AUTO) 0 % (0-10); EOSINOPHILS % (AUTO) 0 % (0-10); HEMATOCRIT 27 % (35-52); HEMOGLOBIN 8.4 G/DL (11.5-16.0); LYMPHOCYTES # (AUTO) 3.1 X 10^3 (1.0-4.0); LYMPHOCYTES % (AUTO) 12 % (12-44); MEAN CORPUSCULAR HEMOGLOBIN 25 PG (25-34); MEAN CORPUSCULAR HGB CONC 31 G/DL (32-36); MEAN CORPUSCULAR VOLUME 81 FL (80-99); MEAN PLATELET VOLUME 11.3 FL (7.4-10.4); MONOCYTES # (AUTO) 1.2 X 10^3 (0.0-1.0); MONOCYTES % (AUTO) 5 % (0-12); NEUTROPHILS # (AUTO) 21.4 X 10^3 (1.8-7.8); NEUTROPHILS % (AUTO) 83 % (42-75); PLATELET COUNT 465 10^3/uL (130-400); RED BLOOD COUNT 3.31 10^6/uL (4.35-5.85); RED CELL DISTRIBUTION WIDTH 15.1 % (10.0-14.5); WHITE BLOOD COUNT 25.8 10^3/uL (4.3-11.0)
[2017-06-15 06:09] LABS: BUN/CREATININE RATIO 23; CALCIUM 7.6 MG/DL (8.5-10.1); CARBON DIOXIDE 26 MMOL/L (21-32); CHLORIDE 103 MMOL/L (98-107); CREATININE SERUM 0.47 MG/DL (0.60-1.30); GFR ESTIMATED > 60; GLUCOSE 236 MG/DL (70-105); MAGNESIUM 1.7 MG/DL (1.8-2.4); POTASSIUM 4.6 MMOL/L (3.6-5.0); SODIUM 134 MMOL/L (135-145)
[2017-06-15 08:00] VITALS: BP 113/70
[2017-06-15] MEDS: HYDROcodone/APAP 5 MG/325 MG (LORTAB) TAB PO PRN (08:21)
[2017-06-15] MEDS: GABAPENTIN 300 MG (NEURONTIN) CAP PO SCH ×2 (08:21→12:35)
[2017-06-15] MEDS: FOLIC ACID 1 MG TAB PO SCH (08:21)
[2017-06-15] MEDS: HYDROCORTISONE 20 MG (CORTEF) TAB PO SCH (08:21)
[2017-06-15] MEDS: SENNA W/DOCUSATE (SENOKOT S) TABLET PO SCH (08:22)
--- NOTE | 2017-06-15 09:38 | Discharge Summary ---
Diagnosis/Chief Complaint Date of Admission Jun 10, 2017 at 15:36 Date of Discharge Discharge Summary Discharge Physical Examination Allergies: Coded Allergies: No Known Drug Allergies (Unverified , 02/28/17) Vitals & I&Os Vital Signs Date Time Temp Pulse Resp B/P (MAP) Pulse Ox O2 Delivery O2 Flow Rate FiO2 06/15/17 08:20 Room Air 06/15/17 00:00 98.8 114 19 107/73 (84) 96 06/10/17 19:04 21 Hospital Course Pending Labs Laboratory Tests 06/15/17 05:45: White Blood Count 25.8, Red Blood Count 3.31, Hemoglobin 8.4, Hematocrit 27, Mean Corpuscular Volume 81, Mean Corpuscular Hemoglobin 25, Mean Corpuscular Hemoglobin Concent 31, Red Cell Distribution Width 15.1, Platelet Count 465, Mean Platelet Volume 11.3, Neutrophils (%) (Auto) 83, Lymphocytes (%) (Auto) 12 , Monocytes (%) (Auto) 5, Eosinophils (%) (Auto) 0, Basophils (%) (Auto) 0, Neutrophils # (Auto) 21.4, Lymphocytes # (Auto) 3.1, Monocytes # (Auto) 1.2, Eosinophils # (Auto) 0.0, Basophils # (Auto) 0.1, Sodium Level 134, Potassium Level 4.6, Chloride Level 103, Carbon Dioxide Level 26, Anion Gap 5, Blood Urea Nitrogen 11, Creatinine 0.47, Estimat Glomerular Filtration Rate > 60, BUN/ Creatinine Ratio 23, Glucose Level 236, Calcium Level 7.6, Magnesium Level 1.7 06/15/17 08:59: Glucometer 233 Discharge Instructions to patient/family Please see electronic discharge instructions given to patient. Discharge Medications Reviewed and agree with Discharge Medication list on patient's Discharge Instruction sheet Clinical Quality Measures DVT/VTE Risk/Contraindication: Risk Factor Score Per Nursin RFS Level Per Nursing on Admit: 4+=Very High Contraindications-Pharm: Other *list below* Other: gi bleeding SHADI RAMIREZ MD Jun 15, 2017 09:38
[2017-06-15] MEDS ORDERED: ERTA1VIA IV ×2 (09:41→09:46)
[2017-06-15] MEDS ORDERED: LACT1CAP8 PO (09:41)
--- NOTE | 2017-06-15 09:44 | D/C HH Face to Face Order ---
D/C Face to Face Orders Instructions for Patient Patient Instructions/FollowUp: 1 week[facility] [address] sullivan Physician to follow Patient: [email or web address] Discharge Diet for Home: Regular Diet Patient Data-Allergies,Ht & Wt Patient Allergies: Coded Allergies: No Known Drug Allergies (Unverified , 02/28/17) Height (Feet): 5 Height (Inches): 2.00 Weight (Pounds): 194 Weight (Ounces): 11.2 Home Health Need/Face to Face Date of Face to Face: Jun 15, 2017 Clinical Findings: Muscle weakness I have seen Pt [id number]: Yes Discharged To: Home Diagnosis/Conditions: multiple sclerosis sepsis from uti wound on gluteus/sacrum Problems/Diagnosis/Condition: Patient is Homebound due to: Muscle weakness, Non-weight bearing Homebound Status Due to the above stated illness, injury or surgical procedure (medical condition or diagnosis) and associated clinical findings, the patient is homebound because of his/her inability to leave home except with aid of a supportive device and/or person AND leaving the home requires a considerable and taxing effort or is medically contraindicated. Pt req the following assistanc: Aid of another person, Wheelchair Home Health Nursing Orders Home Health Services Order: Nursing Services, [facility]-Evaluate & Treat, Physical Therapy-Evaluate & Treat, Wound Care-Eval/Treat Home Health Infusion Therapy Line Start Date: Jun 10, 2017 Line Type: Central Line Site Location: [facility] Orders Therapy Specific Orders: Eval assistive deivces, Teach enviro modifications/ safety, Increase strength/endurance, Provider maintenance therapy Certify Stmt I certify that this patient is under my care and that I, a nurse practitioner or a physician; a executive staff assistant working with me, had a face to face encounter that - meets the physician face to face encounter requirements with this patient as dated. SHADI RAMIREZ MD Jun 15, 2017 09:44
[2017-06-15 15:09] VITALS: BP 113/70
[2017-06-16] MEDS ORDERED: ERTA1VIA3 IV (09:22)
== END 2017-06-15 14:25 | disposition home health service (06) | DRG 871 ==
LOC: EDUNIT# 12:38 → ER 12:39 → ICU 15:36 → 4TH 06-12 17:10
PROVIDERS: ADMIT Internal Medicine; ATTEND Family Medicine
DX: A41.9 Sepsis, unspecified organism (principal); N39.0 Urinary tract infection, site not specified; N18.6 End stage renal disease; L89.154 Pressure ulcer of sacral region, stage 4; B96.4 Proteus (mirabilis) (morganii) as the cause of diseases classified elsewhere; B95.2 Enterococcus as the cause of diseases classified elsewhere; G35 Multiple sclerosis; Z66 Do not resuscitate; T38.0X5A Adverse effect of glucocorticoids and synthetic analogues, initial encounter; D72.829 Elevated white blood cell count, unspecified; E83.42 Hypomagnesemia; E87.6 Hypokalemia; R19.5 Other fecal abnormalities; R65.20 Severe sepsis without septic shock; D63.8 Anemia in other chronic diseases classified elsewhere; G89.29 Other chronic pain; E11.9 Type 2 diabetes mellitus without complications; Z79.4 Long term (current) use of insulin; Z86.718 Personal history of other venous thrombosis and embolism; J44.9 Chronic obstructive pulmonary disease, unspecified; F32.9 Major depressive disorder, single episode, unspecified; F41.9 Anxiety disorder, unspecified
CPT/HCPCS: 36415; 71045; 76937; 80048; 80053; 80306; 81000; 82274; 82533; 82728; 82805; 82947; 82962; 83540; 83605; 83735; 84100; 84132; 85007; 85025; 85027; 85610; 85730; 87040; 87081; 87088; 87186; 94640; 94664; 94760; 96361; 96365; 96375

== ENCOUNTER → 2017-06-16 | Outpatient (CLI) | payer MEDICAID ==
[~2017-06-16] MED LIST changes: +ACHD5005 PO; +ALPR0.5T PO; +ASCO-262 PO; +ERTA1VIA IV; +ERTA1VIA3 IV; +ERTAPENEM 1 GM/NS 100 ML IVPB IV NR; +LACT1CAP8 PO; +MIRA50TA PO; +NITR-68 PO; +SULF1TAB34 PO
[2017-06-16 15:00] VITALS: BP 113/74
--- NOTE | 2017-06-21 10:11 | Physician Query-Final Dx ---
MILLICENT FERNANDEZ 06/21/17 1011: Clinic Account Progress/Dx Physician Query: Please give a diagnosis for the Invanz treatment thank you Date of Service Jun 16, 2017 at 14:51 SHADI RAMIREZ MD 06/22/17 1617: Clinic Account Progress/Dx DIAGNOSIS: Diagnosis urinary tract infection MILLICENT FERNANDEZ Jun 21, 2017 10:11 SHADI RAMIREZ MD Jun 22, 2017 16:17
== END ==
LOC: SDC 14:51
PROVIDERS: ATTEND Family Medicine
DX: N39.0 Urinary tract infection, site not specified (principal)
CPT/HCPCS: 96365